=== PATIENT | male | born 1940 | race Caucasian/White ===

== ENCOUNTER 2018-05-29 11:30 | Inpatient (IN) | payer OTHER, MEDICARE ==
--- NOTE | 2018-05-29 11:45 | PDOC ---
History of Present Illness - History of Present Illness Initial Comments: 05/29/18 14:26 Patient is a 78 year old male with a significant past medical history of who presents to the ED with complaints of general body aches s/p fall that occured yesterday. Patient reports sitting in his chair when he slipped, falling on a carpeted floor on to his legs. He reports being unable to get up from the floor himself, prompting him to email his sister to alert EMS to assist him after being on the floor for multiple hours. Patient reports experiencing general body weakness as well as cold like symptoms that he states made him to weak to get up himself. He states he believes he could have the flu. Denies chest pain, Sob. Denies nausea, vomiting. Denies contact with sick individuals, out of state travelling. Denies loss of consciousness, head trauma. Denies any other symptoms. Allergies: None Social history: No smoking. No alcohol. No illicit drugs. Surgical history: None PMD: Not on staff <Jarrett Pool - Last Filed: 05/29/18 14:26> - General History Source: Patient Exam Limitations: No Limitations <Olive Landrum - Last Filed: 05/30/18 13:25> - General Stated Complaint: FALL Time Seen by Provider: 05/29/18 11:45 Past History <Jarrett Pool - Last Filed: 05/29/18 14:26> <Olive Landrum - Last Filed: 05/30/18 13:25> - Past Medical History Allergies/Adverse Reactions: Allergies Allergy/AdvReac Type Severity Reaction Status Date / Time No Known Allergies Allergy Verified 05/29/18 11:56 Home Medications: Ambulatory Orders metFORMIN HCL [Metformin HCl] 500 mg PO TID 05/29/18 Review of Systems - Review of Systems Able to Perform ROS?: Yes Comments:: 05/29/18 14:26 GENERAL/CONSTITUTIONAL: No: fever, chills, weakness, loss of appetite. HEAD, EYES, EARS, NOSE AND THROAT: No: change in vision, ear pain, discharge, sore throat, throat swelling. CARDIOVASCULAR: No: chest pain, lightheadedness, palpitations, syncope RESPIRATORY: No: cough, shortness of breath, wheezing, hemoptysis, stridor. GASTROINTESTINAL: No: nausea, vomiting, abdominal cramping, diarrhea, rectal bleeding, constipation. GENITOURINARY: No: dysuria, hematuria, frequency, urgency, flank pain. MUSCULOSKELETAL: No: back pain, neck pain, joint pain, muscle swelling or pain SKIN: No: lesions, pallor, rash or easy bruising. NEUROLOGIC: No: headache, vertigo, paresthesias, weakness ENDOCRINE: No: unexplained weight gain or loss HEMATOLOGIC/LYMPHATIC: No: anemia, easy bleeding, swelling nodes <Jarrett Pool - Last Filed: 05/29/18 14:26> *Physical Exam - Vital Signs Last Vital Signs Temp Pulse Resp BP Pulse Ox 97.8 F 114 H 18 142/82 96 05/29/18 11:51 05/29/18 11:51 05/29/18 12:03 05/29/18 11:51 05/29/18 12:03 - Physical Exam Comments: 05/29/18 14:26 GENERAL: The patient is in no acute distress. HEAD: Normal with no signs of trauma. EYES: PERRLA, EOMI, sclera anicteric, conjunctiva clear. ENT: Ears normal, nares patent, oropharynx clear without exudates. Moist mucous membranes. NECK: Normal range of motion, supple without lymphadenopathy, JVD, or masses. LUNGS: Breath sounds equal, clear to auscultation bilaterally. No wheezes, and no crackles. HEART: +Tachycardic. Regular rhythm, normal S1 and S2 without murmur, rub or gallop. ABDOMEN: Soft, nontender, normoactive bowel sounds. No guarding, no rebound. EXTREMITIES: Normal range of motion, no edema. No clubbing or cyanosis. No erythema, or tenderness. NEUROLOGICAL: Cranial nerves II through XII grossly intact. Normal speech. No focal neurological deficits. MUSCULOSKELETAL: Back nontender to palpation, no CVA tenderness SKIN: Warm, Dry, normal turgor, no rashes or lesions noted. <Jarrett Pool - Last Filed: 05/29/18 14:26> ED Treatment Course - LABORATORY CBC & Chemistry Diagram: 05/29/18 12:30 05/29/18 12:30 - ADDITIONAL ORDERS Additional order review: Laboratory Results 05/29/18 05/29/18 12:30 12:30 PT with INR 13.20 H INR 1.12 H Sodium 129 L Potassium 3.3 L Chloride 91 L Carbon Dioxide 20 L Anion Gap 19 H BUN 47 H Creatinine 1.6 H Creat Clearance w eGFR 42.12 Random Glucose 339 H* Calcium 8.9 Total Bilirubin 0.8 AST 44 H ALT 28 Alkaline Phosphatase 116 Creatine Kinase 582 H Creatine Kinase Index 0.5 CK-MB (CK-2) 3.1 Troponin I < 0.02 Total Protein 7.5 Albumin 3.1 L 05/29/18 12:30 RBC 5.45 MCV 86.9 MCHC 32.9 RDW 15.7 MPV 9.0 Neutrophils % 86.8 H Lymphocytes % 2.3 L Monocytes % 10.8 H Eosinophils % 0.0 Basophils % 0.1 <Jarrett Pool - Last Filed: 05/29/18 14:26> - LABORATORY CBC & Chemistry Diagram: 05/30/18 05:30 05/30/18 08:15 <Olive Landrum - Last Filed: 05/30/18 13:25> Medical Decision Making - Critical Care Time Total Critical Care Time (minutes): 60 Critical Care Statement: The care of this patient involved high complexity decision making to prevent further life threatening deterioration of the patient 's condition and/or to evaluate & treat vital organ system(s) failure or risk of failure. - Medical Decision Making 05/29/18 12:44 Mr. 78-year-old male with a history of hypertension, diabetes who presents emergency department via EMS status post a fall. Patient states a possibly 20 hours ago he fell out of his chair. He denies head trauma, loss of consciousness. Was unable to get to standing. He was able to crawl to a laptop and sent to [employer]. a message. His sister then called 911. He denies pain in his extremities. He is able to range them. On examination: Patient is awake, alert. Answers questions appropriately Heart is tachycardic but regular No murmurs Lungs are clear Abdomen abdominal tenderness Pelvis is stable Patient is able to range all extremities. There is multiple areas of the beginnings of bruising on the patient's back. EKG: ST rate of 106 bpm, axis nml, no st elevation or depression, t waves upright 05/29/18 13:56 CXR: LLL pneumonia Laboratory Tests 05/29/18 05/29/18 05/29/18 12:30 12:30 12:30 WBC 13.1 H Hgb 15.6 Hct 47.3 Plt Count 311 INR 1.12 H Sodium 129 L Potassium 3.3 L Chloride 91 L Carbon Dioxide 20 L Anion Gap 19 H BUN 47 H Creatinine 1.6 H Random Glucose 339 H* Creatine Kinase 582 H Creatine Kinase Index 0.5 CK-MB (CK-2) 3.1 Troponin I < 0.02 Given NS bolus Laboratory Tests 05/29/18 16:25 Sodium 133 L Potassium 3.4 L Chloride 94 L Carbon Dioxide 20 L Anion Gap 19 H BUN 44 H Creatinine 1.4 H Random Glucose 319 H* Acetone, Qual Positive moderate 2+ Labs consistent with DKA Insulin drip ordered This was delayed in arriving to the ER Pt given a bolus of Insulin 5 units (pt is insulin naive, glucose is 319) 05/29/18 14:[address] Penn Will admit to her service for treatment of CAP and DKA Blood cultures ordered Abx ordered ICU consult called Clinical impression: DKA, initial presentation Pneumonia, initial presentation <Olive Landrum - Last Filed: 05/30/18 13:25> *DC/Admit/Observation/Transfer - Attestations Scribe Attestion: 05/29/18 14:43 Documentation prepared by Jarrett Pool, acting as emergency medical service manager for Olive Landrum MD. <Jarrett Pool - Last Filed: 05/29/18 14:26> - Discharge Dispostion Decision to Admit order: Yes <Olive Landrum - Last Filed: 05/30/18 13:25> Diagnosis at time of Disposition: Pneumonia Qualifiers: Pneumonia type: due to unspecified organism Laterality: left Lung location: lower lobe of lung Qualified Code(s): J18.1 - Lobar pneumonia, unspecified organism - Discharge Dispostion Condition at time of disposition: Stable
[2018-05-29 12:37] LABS: BASO % 0.1 % (0-2.0); HEMATOCRIT 47.3 % (35.4-49); HEMOGLOBIN 15.6 GM/dL (11.7-16.9); LYMPH % 2.3 % (8-40); MCH 28.6 pg (25.7-33.7); MCHC 32.9 g/dl (32.0-35.9); MEAN CELL VOLUME 86.9 fl (80-96); MONO % 10.8 % (3.8-10.2); NEUT % 86.8 % (42.8-82.8); PLATELET COUNT 311 K/MM3 (134-434); RBC 5.45 M/mm3 (4.00-5.60); RDW 15.7 % (11.9-15.9); WHITE BLOOD COUNT 13.1 K/mm3 (4.0-10.0)
[2018-05-29 12:54] LABS: INR 1.12 (0.83-1.09); PROTHROMBIN TIME (PATIENT) 13.2 SEC (9.7-13.0)
[2018-05-29 13:04] LABS: ALBUMIN 3.1 g/dl (3.4-5.0); ALK PHOS 116 U/L (45-117); ANION GAP 19 MMOL/L (8-16); BILIRUBIN,TOTAL 0.8 mg/dL (0.2-1); BLOOD UREA NITROGEN 47 mg/dL (7-18); CALCIUM 8.9 mg/dL (8.5-10.1); CHLORIDE 91 mmol/L (98-107); CO2 20 mmol/L (21-32); CREATININE 1.6 mg/dL (0.55-1.3); POTASSIUM 3.3 mmol/L (3.5-5.1); SGOT/AST 44 U/L (15-37); SGPT/ALT 28 U/L (13-61); SODIUM 129 mmol/L (136-145); TOT PROT 7.5 g/dl (6.4-8.2)
[2018-05-29 13:06] LABS: GLUCOSE,RANDOM 339 mg/dL (74-106)
[2018-05-29] MEDS ORDERED: CEFTRIAXONE 1 GM in DEXTROSE 5%-WATER - 50 ML IVPB ONE (13:55)
[2018-05-29] MEDS ORDERED: AZITHROMYCIN IVPB 500 MG in DEXTROSE 5%-WATER - 250 ML IVPB ONE (13:55)
[2018-05-29] MEDS ORDERED: SODIUM CHLORIDE 1,000 ML IV STA ×3 (14:15→18:52)
--- NOTE | 2018-05-29 14:51 | EKG ---
Test Reason : Blood Pressure : / mmHG Vent. Rate : 106 BPM Atrial Rate : 106 BPM P-R Int : 132 ms QRS Dur : 090 ms QT Int : 364 ms P-R-T Axes : 067 010 058 degrees QTc Int : 483 ms SINUS TACHYCARDIA POSSIBLE LEFT ATRIAL ENLARGEMENT BORDERLINE ECG NO PREVIOUS ECGS AVAILABLE Confirmed by PRATIK BARRIOS, KATIE ([id number]) on 05/29/2018 2:51:06 PM Referred By: Confirmed By:KATIE CHRISTIE MD
[2018-05-29] MEDS ORDERED: AZITHROMYCIN IVPB 500 MG/250 ML BAG IVPB ONE (15:31)
[2018-05-29] MEDS ORDERED: CEFTRIAXONE 1 GM/50 ML BAG ONE (15:32)
[2018-05-29 17:04] LABS: ANION GAP 19 MMOL/L (8-16); BLOOD UREA NITROGEN 44 mg/dL (7-18); CALCIUM 9.4 mg/dL (8.5-10.1); CHLORIDE 94 mmol/L (98-107); CO2 20 mmol/L (21-32); CREATININE 1.4 mg/dL (0.55-1.3); POTASSIUM 3.4 mmol/L (3.5-5.1); SODIUM 133 mmol/L (136-145)
[2018-05-29 17:05] LABS: GLUCOSE,RANDOM 319 mg/dL (74-106)
[2018-05-29 17:19] LABS: ACETONE SERUM POSITIVE MODERATE 2+ (NEGATIVE)
[2018-05-29] MEDS ORDERED: INSULIN REGULAR 100 UNITS in SODIUM CHLORIDE 99 ML IVPB SCH (17:30)
[2018-05-29] MEDS ORDERED: SODIUM CHLORIDE 0.9%/KCL 20 MEQ/1,000 ML INFUS.BAG IV SCH (17:30)
[2018-05-29 17:37] LABS: URINE APPEARANCE SLCLOUDY; URINE BILIRUBIN NEGATIVE (<2.0 mg/dL); URINE COLOR YELLOW; URINE GLUCOSE (UA) 3+ (NEGATIVE); URINE KETONE 2+ (NEGATIVE); URINE LEUK ESTERASE NEGATIVE (NEGATIVE); URINE NITRITE NEGATIVE (NEGATIVE); URINE PROTEIN 2+ (NEGATIVE); URINE UROBILINOGEN NEGATIVE mg/dL (0.2-1.0)
--- NOTE | 2018-05-29 18:03 | HP ---
Admitting History and Physical - Primary Care Physician PCP: Donnie Penn - Admission History of Present Illness: 78 year old male with no significant past medical history of who presents to the ED with complaints of general body aches s/p fall yesterday. Patient reports sitting in his chair when he slipped, falling on a carpeted floor on to his legs. He reports being unable to get up from the floor himself, prompting him to email his sister to alert EMS to assist him after being on the floor for multiple hours. He states he believes he could have the flu. - Smoking History Smoking history: Never smoked Home Medications - Allergies Allergies/Adverse Reactions: Allergies Allergy/AdvReac Type Severity Reaction Status Date / Time No Known Allergies Allergy Verified 05/29/18 11:56 - Home Medications Home Medications: Ambulatory Orders metFORMIN HCL [Metformin HCl] 500 mg PO TID 05/29/18 Physical Examination Vital Signs: Vital Signs Temperature 98.1 F 05/29/18 16:39 Pulse Rate 100 H 05/29/18 16:39 Respiratory Rate 20 05/29/18 16:39 Blood Pressure 137/76 05/29/18 16:39 O2 Sat by Pulse Oximetry (%) 97 05/29/18 16:39 Constitutional: Yes: No Distress HENT: Yes: Atraumatic Neck: Yes: Supple Cardiovascular: Yes: Regular Rate and Rhythm Respiratory: Yes: CTA Bilaterally Gastrointestinal: Yes: Normal Bowel Sounds Extremities: Yes: WNL Edema: No Peripheral Pulses WNL: Yes Neurological: Yes: Alert, Oriented Labs: CBC, BMP 05/29/18 12:30 05/29/18 16:25 Imaging - Results Chest X-ray: Report Reviewed Cat Scan: Report Reviewed Ultrasound: Report Reviewed Problem List - Problems (1) Pneumonia Assessment/Plan: iv abx cxs sent id consult head ct noted cxr noted Code(s): J18.9 - PNEUMONIA, UNSPECIFIED ORGANISM Qualifiers: Pneumonia type: due to unspecified organism Laterality: left Lung location: lower lobe of lung Qualified Code(s): J18.1 - Lobar pneumonia, unspecified organism Assessment/Plan Laboratory Tests 05/29/18 05/29/18 05/29/18 12:30 12:30 12:30 WBC 13.1 H RBC 5.45 Hgb 15.6 Hct 47.3 MCV 86.9 MCH 28.6 MCHC 32.9 RDW 15.7 Plt Count 311 MPV 9.0 Absolute Neuts (auto) 11.3 H Neutrophils % 86.8 H Lymphocytes % 2.3 L Monocytes % 10.8 H Eosinophils % 0.0 Basophils % 0.1 Nucleated RBC % 0 PT with INR 13.20 H INR 1.12 H Anticoagulation Therapy Puncture Site ABG pH ABG pCO2 at Pt Temp ABG pO2 at Pt Temp ABG HCO3 ABG O2 Sat (Measured) ABG O2 Content ABG Base Excess Ivan Test O2 Delivery Device Oxygen Flow Rate Vent Mode Vent Rate Mechanical Rate Pressure Support Vent Sodium 129 L Potassium 3.3 L Chloride 91 L Carbon Dioxide 20 L Anion Gap 19 H BUN 47 H Creatinine 1.6 H Creat Clearance w eGFR 42.12 POC Glucometer Random Glucose 339 H* Calcium 8.9 Total Bilirubin 0.8 AST 44 H ALT 28 Alkaline Phosphatase 116 Creatine Kinase 582 H Creatine Kinase Index 0.5 CK-MB (CK-2) 3.1 Troponin I < 0.02 Total Protein 7.5 Albumin 3.1 L Urine Color Urine Appearance Urine pH Ur Specific [place] Urine Protein Urine Glucose (UA) Urine Ketones Urine Blood Urine Nitrite Urine Bilirubin Urine Urobilinogen Ur Leukocyte Esterase Urine WBC (Auto) Urine RBC (Auto) Ur Epithelial Cells Hyaline Casts Urine Mucus Acetone, Qual Blood Type Antibody Screen 05/29/18 05/29/18 05/29/18 15:15 16:25 17:01 WBC RBC Hgb Hct MCV MCH MCHC RDW Plt Count MPV Absolute Neuts (auto) Neutrophils % Lymphocytes % Monocytes % Eosinophils % Basophils % Nucleated RBC % PT with INR INR Anticoagulation Therapy Puncture Site ABG pH ABG pCO2 at Pt Temp ABG pO2 at Pt Temp ABG HCO3 ABG O2 Sat (Measured) ABG O2 Content ABG Base Excess Ivan Test O2 Delivery Device Oxygen Flow Rate Vent Mode Vent Rate Mechanical Rate Pressure Support Vent Sodium 133 L Potassium 3.4 L Chloride 94 L Carbon Dioxide 20 L Anion Gap 19 H BUN 44 H Creatinine 1.4 H Creat Clearance w eGFR 49.14 POC Glucometer Random Glucose 319 H* Calcium 9.4 Total Bilirubin AST ALT Alkaline Phosphatase Creatine Kinase Creatine Kinase Index CK-MB (CK-2) Troponin I Total Protein Albumin Urine Color Yellow Urine Appearance Slcloudy Urine pH 5.0 Ur Specific [place] 1.023 Urine Protein 2+ H Urine Glucose (UA) 3+ H Urine Ketones 2+ H Urine Blood 2+ H Urine Nitrite Negative Urine Bilirubin Negative Urine Urobilinogen Negative Ur Leukocyte Esterase Negative Urine WBC (Auto) 2 Urine RBC (Auto) <1 Ur Epithelial Cells Rare Hyaline Casts 1 Urine Mucus Rare Acetone, Qual Positive moderate 2+ Blood Type O POSITIVE Antibody Screen Negative 05/29/18 05/29/18 05/29/18 19:05 20:16 20:20 WBC RBC Hgb Hct MCV MCH MCHC RDW Plt Count MPV Absolute Neuts (auto) Neutrophils % Lymphocytes % Monocytes % Eosinophils % Basophils % Nucleated RBC % PT with INR INR Anticoagulation Therapy No Result Required. Puncture Site No Result Required. ABG pH 7.42 ABG pCO2 at Pt Temp 25.7 L ABG pO2 at Pt Temp 66.1 L ABG HCO3 16.3 L ABG O2 Sat (Measured) 90.5 ABG O2 Content 16.9 ABG Base Excess -6.3 L Ivan Test Positive O2 Delivery Device No Result Required. Oxygen Flow Rate No Result Required. Vent Mode No Result Required. Vent Rate No Result Required. Mechanical Rate No Result Required. Pressure Support Vent No Result Required. Sodium 137 Potassium 3.3 L Chloride 101 Carbon Dioxide 21 Anion Gap 15 BUN 41 H Creatinine 1.3 Creat Clearance w eGFR 53.53 POC Glucometer [id number] Random Glucose 222 H Calcium 8.2 L Total Bilirubin AST ALT Alkaline Phosphatase Creatine Kinase Creatine Kinase Index CK-MB (CK-2) Troponin I Total Protein Albumin Urine Color Urine Appearance Urine pH Ur Specific [place] Urine Protein Urine Glucose (UA) Urine Ketones Urine Blood Urine Nitrite Urine Bilirubin Urine Urobilinogen Ur Leukocyte Esterase Urine WBC (Auto) Urine RBC (Auto) Ur Epithelial Cells Hyaline Casts Urine Mucus Acetone, Qual Blood Type Antibody Screen Active Medications Generic Name Dose Route Start Last Admin Trade Name Freq PRN Reason Stop Dose Admin Chlorhexidine Gluconate 1 applic 05/29/18 22:00 Hibiclens For Decolonization - TP HS MECHELLE Heparin Sodium (Porcine) 5,000 unit 05/29/18 22:00 Heparin - SQ TID [facility] Insulin Human Regular 100 100 mls @ 4 mls/hr 05/29/18 17:30 units/ Sodium Chloride IVPB TITR MECHELLE Protocol 4 UNITS/HR Potassium Chloride/Sodium Chloride 20 meq in 1,000 mls @ 200 mls/hr 05/29/18 17:30 05/29/18 18:30 Ns+20 Meq Kcl - IV 200 mls/hr ASDIR MECHELLE Administration Mupirocin 1 applic 05/29/18 22:00 Bactroban Ointment (For Decolonization) - NS 06/03/18 21:59 BID MECHELLE
[2018-05-29] MEDS ORDERED: INSULIN REGULAR HUMAN 100 UNITS/ML *VIAL ONE ×2 (18:04→18:28)
[2018-05-29] MEDS ORDERED: INSULIN REGULAR HUMAN 100 UNITS/ML *VIAL IVPUSH ONE (18:25)
[2018-05-29 18:39] LABS: EPI CELLS RARE /HPF (FEW); URINE HYALINE CAST 1 /lpf; URINE MUCUS RARE
--- NOTE | 2018-05-29 18:46 | CONSULT ---
Consultation: REQUESTING PROVIDER: Dr. Penn CONSULT REQUEST: We have been asked to medically evaluate this patient for ICU. HISTORY OF PRESENT ILLNESS: A 78 y.o. M w/ PMHx. of DM2 for 30 years and CAD( 2 stents placed 7 years ago, does not take medication for stent). Pt. states that a couple days ago he fell, (denies hitting his head and denies losing consciousness) and was unable to get up for over 20 hours. Pt was unable to reach his phone but was able to reach his laptop where he was able to email his sister who promptly called EMS. Pt. states this is the first time something like this has happened. Pt. endorses that Metformin worked well up until 5 years ago. His last HgbA1c was 7.5%. Pt. monitors BGMs every morning and they are usually 140-160. Pt. denies ever having low BGM and ever being hospitalized for DKA. Pt. started Glyxambi samples several months ago by his PCP Dr. Marcellus Starr?( last seen 1.5 months ago). Pt. takes Metformin 500mg TID and Glipizide in addition to Glyxambi. Pt. uses [facility] on [address]. Pt. lives alone at home, recently 2 years ago. Pt. denies any other surgical history and allergies. Family Hx: Father of Alzheimer/dementia at 87, Mother of MA, Sister recently diagnosed with breast cancer Social Hx: Pt. denies EtOh, smoked cigs and cigar from teenager to 2000, denies drug use. 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 REVIEW OF SYSTEMS: CONSTITUTIONAL: Present: generalized weakness, weight changeAbsent: fever, chills, diaphoresis, malaise, loss of appetite, HEENT: Absent: rhinorrhea, nasal congestion, throat pain, throat swelling, difficulty swallowing, mouth swelling, ear pain, eye pain, visual changes CARDIOVASCULAR: Absent: chest pain, syncope, palpitations, irregular heart rate , lightheadedness, peripheral edema RESPIRATORY: Absent: cough, shortness of breath, dyspnea with exertion, orthopnea, wheezing, stridor, hemoptysis GASTROINTESTINAL:Absent: abdominal pain, abdominal distension, nausea, vomiting , diarrhea, constipation, melena, hematochezia GENITOURINARY: Absent: dysuria, frequency, urgency, hesitancy, hematuria, flank pain, genital pain MUSCULOSKELETAL: Absent: myalgia, arthralgia, joint swelling, back pain, neck pain SKIN: Absent: rash, itching, pallor HEMATOLOGIC/IMMUNOLOGIC: Absent: easy bleeding, easy bruising, lymphadenopathy, frequent infections ENDOCRINE: Present: unexplained weight lossAbsent: unexplained weight gain, , heat intolerance, cold intolerance NEUROLOGIC: Present: unsteady gait Absent: headache, focal weakness or paresthesias, dizziness, seizure, mental status changes, bladder or bowel incontinence PSYCHIATRIC: Absent: anxiety, depression, suicidal or homicidal ideation, hallucinations. PHYSICAL EXAMINATION Vital Signs - 24 hr 05/29/18 05/29/18 05/29/18 11:51 12:03 16:39 Temperature 97.8 F 98.1 F Pulse Rate 114 H Pulse Rate [ 100 H Right Radial] Respiratory 18 18 20 Rate Blood Pressure 142/82 Blood Pressure 137/76 [Left Arm] O2 Sat by Pulse 96 96 97 Oximetry (%) GENERAL: Awake, alert, and fully oriented, in no acute distress. HEAD: Normal with no signs of trauma. EYES: Pupils equal, round and reactive to light, sclera anicteric, conjunctiva clear. No lid lag. EARS, NOSE, THROAT: Ears normal, nares patent, oropharynx clear without exudates. Moist mucous membranes. LUNGS: LLL crackles and decreased breath sounds. No accessory muscle use. HEART: Irregular rate and rhythm, normal S1 and S2 ABDOMEN: Soft, nontender, not distended, normoactive bowel sounds, no guarding, no rebound, no masses. MUSCULOSKELETAL: Normal range of motion at all joints. No bony deformities or tenderness. No CVA tenderness. UPPER EXTREMITIES: 2+ radial pulses, warm, well-perfused. No cyanosis. No clubbing. Cap refill <2 seconds. No peripheral edema. LOWER EXTREMITIES: 2+ dorsal pedal pulses, warm, well-perfused. No calf tenderness. No peripheral edema. LLE mass that is fluctuant and nontender. NEUROLOGICAL: Normal speech. Normal gait. PSYCHIATRIC: Cooperative. Good eye contact. Appropriate mood and affect. SKIN: Warm, dry, normal turgor, no rashes or lesions noted. Laboratory Results - last 24 hr 05/29/18 05/29/18 05/29/18 12:30 12:30 12:30 WBC 13.1 H RBC 5.45 Hgb 15.6 Hct 47.3 MCV 86.9 MCH 28.6 MCHC 32.9 RDW 15.7 Plt Count 311 MPV 9.0 Absolute Neuts (auto) 11.3 H Neutrophils % 86.8 H Lymphocytes % 2.3 L Monocytes % 10.8 H Eosinophils % 0.0 Basophils % 0.1 Nucleated RBC % 0 PT with INR 13.20 H INR 1.12 H Sodium 129 L Potassium 3.3 L Chloride 91 L Carbon Dioxide 20 L Anion Gap 19 H BUN 47 H Creatinine 1.6 H Creat Clearance w eGFR 42.12 Random Glucose 339 H* Calcium 8.9 Total Bilirubin 0.8 AST 44 H ALT 28 Alkaline Phosphatase 116 Creatine Kinase 582 H Creatine Kinase Index 0.5 CK-MB (CK-2) 3.1 Troponin I < 0.02 Total Protein 7.5 Albumin 3.1 L Urine Color Urine Appearance Urine pH Ur Specific [place] Urine Protein Urine Glucose (UA) Urine Ketones Urine Blood Urine Nitrite Urine Bilirubin Urine Urobilinogen Ur Leukocyte Esterase Acetone, Qual Blood Type Antibody Screen 05/29/18 05/29/18 05/29/18 15:15 16:25 17:01 WBC RBC Hgb Hct MCV MCH MCHC RDW Plt Count MPV Absolute Neuts (auto) Neutrophils % Lymphocytes % Monocytes % Eosinophils % Basophils % Nucleated RBC % PT with INR INR Sodium 133 L Potassium 3.4 L Chloride 94 L Carbon Dioxide 20 L Anion Gap 19 H BUN 44 H Creatinine 1.4 H Creat Clearance w eGFR 49.14 Random Glucose 319 H* Calcium 9.4 Total Bilirubin AST ALT Alkaline Phosphatase Creatine Kinase Creatine Kinase Index CK-MB (CK-2) Troponin I Total Protein Albumin Urine Color Yellow Urine Appearance Slcloudy Urine pH 5.0 Ur Specific [place] 1.023 Urine Protein 2+ H Urine Glucose (UA) 3+ H Urine Ketones 2+ H Urine Blood 2+ H Urine Nitrite Negative Urine Bilirubin Negative Urine Urobilinogen Negative Ur Leukocyte Esterase Negative Acetone, Qual Positive moderate 2+ Blood Type O POSITIVE Antibody Screen Negative Active Medications Current Medications Sodium Chloride (Normal Saline -) 1,000 mls @ 125 mls/hr IV ASDIR STA Stop: 05/29/18 22:14 Last Admin: 05/29/18 15:23 Dose: 125 mls/hr Insulin Human Regular 100 (units/ Sodium Chloride) 100 mls @ 4 mls/hr IVPB TITR MECHELLE; Protocol Potassium Chloride/Sodium Chloride (Ns+20 Meq Kcl -) 20 meq in 1,000 mls @ 200 mls/hr IV ASDIR MECHELLE CXR: LLL Pnemonia, No pleural effusion. ASSESSMENT/PLAN: A 78 y.o. M w/ PMHx. of DM2 for 30 years and CAD( 2 stents placed 7 years ago, does not take medication for stent), presents to the ED s/p syncopal episode with LLL pneumonia and DKA. #Endocrine -DKA 2/2 likely pneumonia started Azithromycin and Ceftriaxone started Insulin drip BGM Q1H BMP Q2H, then Q4h NS @ 200ml/hr w/ 20meq K+ UA positive for ketones, glucose and acetone Glucose 319 Anion Gap: 19 When FS is less than 200, please switch to D5 @ 200cc/hr AND decrease insulin drip. After his anion gap closes, continue insulin drip for 2 h and start long acting insulin. #Cardiovascular -CAD s/p 2 stents 7 years ago -R/O Cardiogenic etiology for syncopal episode f/u Echo f/u Carotid Duplex #F/E/N -NS w 20meq @200ml/hr -monitor and replete electrolytes as needed, Hyponatremia and Hypokalemia are resolving -NPO Dispo: We will continue to follow the patient. Thank you for this consultative opportunity. Visit type - Emergency Visit Emergency Visit: Yes ED Registration Date: 05/29/18 Care time: The patient presented to the Emergency Department on the above date and was hospitalized for further evaluation of their emergent condition. - New Patient This patient is new to me today: No - Critical Care Critical Care patient: Yes Total Critical Care Time (in minutes): 42 Critical Care Statement: The care of this patient involved high complexity decision making to prevent further life threatening deterioration of the patient 's condition and/or to evaluate & treat vital organ system(s) failure or risk of failure.
[2018-05-29 19:23] LABS: ARTERIAL BLD GAS O2 SATURATION 90.5 % (90-98.9); ARTERIAL BLOOD GAS PCO2 25.7 mmHg (35-45); ARTERIAL BLOOD GAS PO2 66.1 mmHg (70-100); ARTERIAL BLOOD GAS pH 7.42 (7.35-7.45)
[2018-05-29 19:24] LABS: ARTERIAL BLOOD GAS BASE EXCESS -6.3 meq/l (-2-2)
[2018-05-29 19:25] LABS: ALLENS TEST POSITIVE
[2018-05-29 20:48] LABS: ANION GAP 15 MMOL/L (8-16); BLOOD UREA NITROGEN 41 mg/dL (7-18); CALCIUM 8.2 mg/dL (8.5-10.1); CHLORIDE 101 mmol/L (98-107); CO2 21 mmol/L (21-32); CREATININE 1.3 mg/dL (0.55-1.3); GLUCOSE,RANDOM 222 mg/dL (74-106); POTASSIUM 3.3 mmol/L (3.5-5.1); SODIUM 137 mmol/L (136-145)
[2018-05-29] MEDS ORDERED: ACETAMINOPHEN 325 MG TABLET (FP) PO PRN (21:08)
[2018-05-29] MEDS: HEPARIN NA (PORCINE) 5,000 UNITS/ML 1ML VIAL SQ SCH (23:42)
[2018-05-29] MEDS ORDERED: HEPARIN NA (PORCINE) 5,000 UNITS/ML 1ML VIAL ONE (23:43)
[2018-05-30 00:24] LABS: ANION GAP 17 MMOL/L (8-16); BLOOD UREA NITROGEN 41 mg/dL (7-18); CALCIUM 7.7 mg/dL (8.5-10.1); CHLORIDE 101 mmol/L (98-107); CO2 17 mmol/L (21-32); CREATININE 1.3 mg/dL (0.55-1.3); GLUCOSE,RANDOM 271 mg/dL (74-106); POTASSIUM 3.9 mmol/L (3.5-5.1); SODIUM 135 mmol/L (136-145)
[2018-05-30] MEDS ORDERED: INSULIN REGULAR 100 UNITS in SODIUM CHLORIDE 99 ML IVPB SCH (03:19)
[2018-05-30 06:07] LABS: BASO % 0.3 % (0-2.0); EOS % 0.3 % (0-4.5); HEMATOCRIT 43.2 % (35.4-49); HEMOGLOBIN 13.8 GM/dL (11.7-16.9); LYMPH % 4.4 % (8-40); MCH 27.8 pg (25.7-33.7); MCHC 31.8 g/dl (32.0-35.9); MEAN CELL VOLUME 87.2 fl (80-96); MEAN PLT VOLUME 9.8 fl (7.5-11.1); MONO % 9.4 % (3.8-10.2); NEUT % 85.6 % (42.8-82.8); PLATELET COUNT 271 K/MM3 (134-434); RBC 4.96 M/mm3 (4.00-5.60); RDW 15.4 % (11.9-15.9); WHITE BLOOD COUNT 13.2 K/mm3 (4.0-10.0)
[2018-05-30] MEDS: HEPARIN NA (PORCINE) 5,000 UNITS/ML 1ML VIAL SQ SCH ×3 (06:15→22:36)
[2018-05-30 06:30] LABS: MAGNESIUM 2.6 mg/dL (1.8-2.4)
[2018-05-30] MEDS ORDERED: DEXTROSE 5%-0.45% SALINE 1,000 ML IV SCH (07:00)
[2018-05-30] MEDS ORDERED: metFORMIN HCL 500 MG TABLET (FP) PO SCH (07:00)
[2018-05-30] MEDS ORDERED: POTASSIUM PHOSPHATE 30 MM in SODIUM CHLORIDE 250 ML IVPB ONE (07:30)
[2018-05-30 07:47] LABS: ALBUMIN 2.3 g/dl (3.4-5.0); ALK PHOS 90 U/L (45-117); ANION GAP 12 MMOL/L (8-16); BILIRUBIN,TOTAL 0.8 mg/dL (0.2-1); BLOOD UREA NITROGEN 37 mg/dL (7-18); CALCIUM 8.2 mg/dL (8.5-10.1); CHLORIDE 108 mmol/L (98-107); CO2 20 mmol/L (21-32); CREATININE 1.2 mg/dL (0.55-1.3); GLUCOSE,RANDOM 162 mg/dL (74-106); POTASSIUM 3.5 mmol/L (3.5-5.1); SGOT/AST 36 U/L (15-37); SGPT/ALT 24 U/L (13-61); SODIUM 140 mmol/L (136-145); TOT PROT 5.7 g/dl (6.4-8.2)
[2018-05-30 08:58] LABS: ANION GAP 11 MMOL/L (8-16); BLOOD UREA NITROGEN 36 mg/dL (7-18); CALCIUM 7.9 mg/dL (8.5-10.1); CHLORIDE 109 mmol/L (98-107); CO2 19 mmol/L (21-32); CREATININE 1.1 mg/dL (0.55-1.3); GLUCOSE,RANDOM 89 mg/dL (74-106); SODIUM 139 mmol/L (136-145)
[2018-05-30] MEDS ORDERED: cefTRIAXone SODIUM 1 GM VIAL ONE (09:57)
[2018-05-30] MEDS ORDERED: DEXTROSE 5%-WATER - 50 ML IVPB ONE ×3 (09:57→22:51)
[2018-05-30] MEDS ORDERED: AZITHROMYCIN IVPB 250 MG in DEXTROSE 5%-WATER - 250 ML IVPB SCH (10:00)
[2018-05-30] MEDS ORDERED: PNEUMOC 13-VAL CONJ-DIP CRM/PF 0.5 ML DISP.SYRIN IM ONE (10:00)
[2018-05-30] MEDS ORDERED: MUPIROCIN 2% TOPICAL OINTMENT FOR DECOLONIZATION NS SCH ×2 (10:00→22:00)
[2018-05-30] MEDS ORDERED: CEFTRIAXONE 1 GM in DEXTROSE 5%-WATER - 50 ML IVPB SCH (10:00)
[2018-05-30] MEDS: KCL 10 MEQ IVPB 10 MEQ/100 ML INFUS.BAG IVPB SCH ×3 (10:34→12:55)
[2018-05-30] MEDS ORDERED: PT OWN MED DRAWER 7, Y5N ONE (11:23)
--- NOTE | 2018-05-30 12:50 | PN ---
Teaching Attending Note Name of Resident: Gm Bennett ATTENDING PHYSICIAN STATEMENT I saw and evaluated the patient. I reviewed the resident's note and discussed the case with the resident. I agree with the resident's findings and plan as documented. SUBJECTIVE: Patient seen and examined in the ICU. Awake and alert. Denies CP or SOB or significant cough. Remains on IV Insulin drip (ordered to stop). AG closed. CXR: Increase in LLL consolidation / RLL atalectasis Intake & Output 05/27/18 05/28/18 05/29/18 05/30/18 23:59 23:59 23:59 23:59 Intake Total 410 Balance 410 Weight 130 lb 138 lb 3 oz Last Vital Signs Temp Pulse Resp BP Pulse Ox 98.5 F 74 15 113/45 L 97 05/30/18 06:00 05/30/18 06:00 05/30/18 06:00 05/30/18 06:00 05/30/18 03:15 Active Medications Acetaminophen (Tylenol -) 650 mg PO Q6H PRN PRN Reason: FEVER Chlorhexidine Gluconate (Hibiclens For Decolonization -) 1 applic TP HS MECHELLE Heparin Sodium (Porcine) (Heparin -) 5,000 unit SQ TID MECHELLE Last Admin: 05/30/18 06:15 Dose: 5,000 unit Potassium Chloride/Sodium Chloride (Ns+20 Meq Kcl -) 20 meq in 1,000 mls @ 200 mls/hr IV ASDIR MECHELLE Last Admin: 05/29/18 18:30 Dose: 200 mls/hr Dextrose/Sodium Chloride (D5-1/2ns -) 1,000 mls @ 150 mls/hr IV ASDIR MECHELLE Last Admin: 05/30/18 07:14 Dose: 150 mls/hr Azithromycin 250 mg/ Dextrose 250 mls @ 250 mls/hr IVPB DAILY MECHELLE Ceftriaxone Sodium 1 gm/ (Dextrose) 50 mls @ 100 mls/hr IVPB DAILY [facility]; Protocol Last Admin: 05/30/18 10:16 Dose: 100 mls/hr Mupirocin (Bactroban Ointment (For Decolonization) -) 1 applic NS BID MECHELLE Stop: 06/04/18 09:59 Last Admin: 05/30/18 11:42 Dose: 1 applic GENERAL: Awake, alert, and oriented, in no acute distress. HEAD: Normal with no signs of trauma. EYES: Pupils equal, round and reactive to light, sclera anicteric, conjunctiva clear. No lid lag. EARS, NOSE, THROAT: Ears normal, nares patent, oropharynx clear without exudates. Moist mucous membranes. LUNGS: LLL crackles and decreased breath sounds. No accessory muscle use. HEART: Irregular rate and rhythm, normal S1 and S2 ABDOMEN: Soft, nontender, not distended, normoactive bowel sounds, no guarding, no rebound, no masses. MUSCULOSKELETAL: Normal range of motion at all joints. No bony deformities or tenderness. No CVA tenderness. UPPER EXTREMITIES: 2+ radial pulses, warm, well-perfused. No cyanosis. No clubbing. Cap refill <2 seconds. No peripheral edema. LOWER EXTREMITIES: 2+ dorsal pedal pulses, warm, well-perfused. No calf tenderness. NEUROLOGICAL: Normal speech. Normal gait. PSYCHIATRIC: Cooperative. Appropriate mood and affect. SKIN: Warm, dry, normal turgor, no rashes or lesions noted. Laboratory Results - last 24 hr 05/29/18 05/29/18 05/29/18 12:30 12:30 12:30 WBC 13.1 H RBC 5.45 Hgb 15.6 Hct 47.3 MCV 86.9 MCH 28.6 MCHC 32.9 RDW 15.7 Plt Count 311 MPV 9.0 Absolute Neuts (auto) 11.3 H Neutrophils % 86.8 H Lymphocytes % 2.3 L Monocytes % 10.8 H Eosinophils % 0.0 Basophils % 0.1 Nucleated RBC % 0 PT with INR 13.20 H INR 1.12 H Anticoagulation Therapy Puncture Site ABG pH ABG pCO2 at Pt Temp ABG pO2 at Pt Temp ABG HCO3 ABG O2 Sat (Measured) ABG O2 Content ABG Base Excess Ivan Test O2 Delivery Device Oxygen Flow Rate Vent Mode Vent Rate Mechanical Rate Pressure Support Vent Sodium 129 L Potassium 3.3 L Chloride 91 L Carbon Dioxide 20 L Anion Gap 19 H BUN 47 H Creatinine 1.6 H Creat Clearance w eGFR 42.12 POC Glucometer Random Glucose 339 H* Hemoglobin A1c % Calcium 8.9 Phosphorus Magnesium Total Bilirubin 0.8 AST 44 H ALT 28 Alkaline Phosphatase 116 Creatine Kinase 582 H Creatine Kinase Index 0.5 CK-MB (CK-2) 3.1 Troponin I < 0.02 Total Protein 7.5 Albumin 3.1 L Urine Color Urine Appearance Urine pH Ur Specific [place] Urine Protein Urine Glucose (UA) Urine Ketones Urine Blood Urine Nitrite Urine Bilirubin Urine Urobilinogen Ur Leukocyte Esterase Urine WBC (Auto) Urine RBC (Auto) Ur Epithelial Cells Hyaline Casts Urine Mucus Acetone, Qual Blood Type Antibody Screen 05/29/18 05/29/18 05/29/18 15:15 16:25 17:01 WBC RBC Hgb Hct MCV MCH MCHC RDW Plt Count MPV Absolute Neuts (auto) Neutrophils % Lymphocytes % Monocytes % Eosinophils % Basophils % Nucleated RBC % PT with INR INR Anticoagulation Therapy Puncture Site ABG pH ABG pCO2 at Pt Temp ABG pO2 at Pt Temp ABG HCO3 ABG O2 Sat (Measured) ABG O2 Content ABG Base Excess Ivan Test O2 Delivery Device Oxygen Flow Rate Vent Mode Vent Rate Mechanical Rate Pressure Support Vent Sodium 133 L Potassium 3.4 L Chloride 94 L Carbon Dioxide 20 L Anion Gap 19 H BUN 44 H Creatinine 1.4 H Creat Clearance w eGFR 49.14 POC Glucometer Random Glucose 319 H* Hemoglobin A1c % Calcium 9.4 Phosphorus Magnesium Total Bilirubin AST ALT Alkaline Phosphatase Creatine Kinase Creatine Kinase Index CK-MB (CK-2) Troponin I Total Protein Albumin Urine Color Yellow Urine Appearance Slcloudy Urine pH 5.0 Ur Specific [place] 1.023 Urine Protein 2+ H Urine Glucose (UA) 3+ H Urine Ketones 2+ H Urine Blood 2+ H Urine Nitrite Negative Urine Bilirubin Negative Urine Urobilinogen Negative Ur Leukocyte Esterase Negative Urine WBC (Auto) 2 Urine RBC (Auto) <1 Ur Epithelial Cells Rare Hyaline Casts 1 Urine Mucus Rare Acetone, Qual Positive moderate 2+ Blood Type O POSITIVE Antibody Screen Negative 05/29/18 05/29/18 05/29/18 19:05 20:16 20:20 WBC RBC Hgb Hct MCV MCH MCHC RDW Plt Count MPV Absolute Neuts (auto) Neutrophils % Lymphocytes % Monocytes % Eosinophils % Basophils % Nucleated RBC % PT with INR INR Anticoagulation Therapy No Result Required. Puncture Site No Result Required. ABG pH 7.42 ABG pCO2 at Pt Temp 25.7 L ABG pO2 at Pt Temp 66.1 L ABG HCO3 16.3 L ABG O2 Sat (Measured) 90.5 ABG O2 Content 16.9 ABG Base Excess -6.3 L Ivan Test Positive O2 Delivery Device No Result Required. Oxygen Flow Rate No Result Required. Vent Mode No Result Required. Vent Rate No Result Required. Mechanical Rate No Result Required. Pressure Support Vent No Result Required. Sodium 137 Potassium 3.3 L Chloride 101 Carbon Dioxide 21 Anion Gap 15 BUN 41 H Creatinine 1.3 Creat Clearance w eGFR 53.53 POC Glucometer 249.99186 Random Glucose 222 H Hemoglobin A1c % Calcium 8.2 L Phosphorus Magnesium Total Bilirubin AST ALT Alkaline Phosphatase Creatine Kinase Creatine Kinase Index CK-MB (CK-2) Troponin I Total Protein Albumin Urine Color Urine Appearance Urine pH Ur Specific [place] Urine Protein Urine Glucose (UA) Urine Ketones Urine Blood Urine Nitrite Urine Bilirubin Urine Urobilinogen Ur Leukocyte Esterase Urine WBC (Auto) Urine RBC (Auto) Ur Epithelial Cells Hyaline Casts Urine Mucus Acetone, Qual Blood Type Antibody Screen 05/29/18 05/30/18 05/30/18 23:23 05:30 05:30 WBC 13.2 H RBC 4.96 Hgb 13.8 Hct 43.2 MCV 87.2 MCH 27.8 MCHC 31.8 L RDW 15.4 Plt Count 271 MPV 9.8 Absolute Neuts (auto) 11.3 H Neutrophils % 85.6 H Lymphocytes % 4.4 L D Monocytes % 9.4 Eosinophils % 0.3 D Basophils % 0.3 Nucleated RBC % 0 PT with INR INR Anticoagulation Therapy Puncture Site ABG pH ABG pCO2 at Pt Temp ABG pO2 at Pt Temp ABG HCO3 ABG O2 Sat (Measured) ABG O2 Content ABG Base Excess Ivan Test O2 Delivery Device Oxygen Flow Rate Vent Mode Vent Rate Mechanical Rate Pressure Support Vent Sodium 135 L 140 Potassium 3.9 3.5 Chloride 101 108 H Carbon Dioxide 17 L 20 L Anion Gap 17 H 12 BUN 41 H 37 H Creatinine 1.3 1.2 Creat Clearance w eGFR 53.53 58.71 POC Glucometer Random Glucose 271 H 162 H Hemoglobin A1c % Calcium 7.7 L 8.2 L Phosphorus 2.0 L Magnesium 2.6 H Total Bilirubin 0.8 AST 36 ALT 24 Alkaline Phosphatase 90 Creatine Kinase Creatine Kinase Index CK-MB (CK-2) Troponin I Total Protein 5.7 L Albumin 2.3 L Urine Color Urine Appearance Urine pH Ur Specific [place] Urine Protein Urine Glucose (UA) Urine Ketones Urine Blood Urine Nitrite Urine Bilirubin Urine Urobilinogen Ur Leukocyte Esterase Urine WBC (Auto) Urine RBC (Auto) Ur Epithelial Cells Hyaline Casts Urine Mucus Acetone, Qual Blood Type Antibody Screen 05/30/18 05/30/18 05/30/18 05:30 05:30 06:45 WBC RBC Hgb Hct MCV MCH MCHC RDW Plt Count MPV Absolute Neuts (auto) Neutrophils % Lymphocytes % Monocytes % Eosinophils % Basophils % Nucleated RBC % PT with INR INR Anticoagulation Therapy Puncture Site ABG pH ABG pCO2 at Pt Temp ABG pO2 at Pt Temp ABG HCO3 ABG O2 Sat (Measured) ABG O2 Content ABG Base Excess Ivan Test O2 Delivery Device Oxygen Flow Rate Vent Mode Vent Rate Mechanical Rate Pressure Support Vent Sodium Cancelled Potassium Cancelled Chloride Cancelled Carbon Dioxide Cancelled Anion Gap Cancelled BUN Cancelled Creatinine Cancelled Creat Clearance w eGFR Cancelled POC Glucometer 149.11894 Random Glucose Cancelled Hemoglobin A1c % 8.0 H Calcium Cancelled Phosphorus Magnesium Total Bilirubin Cancelled AST Cancelled ALT Cancelled Alkaline Phosphatase Cancelled Creatine Kinase Creatine Kinase Index CK-MB (CK-2) Troponin I Total Protein Cancelled Albumin Cancelled Urine Color Urine Appearance Urine pH Ur Specific [place] Urine Protein Urine Glucose (UA) Urine Ketones Urine Blood Urine Nitrite Urine Bilirubin Urine Urobilinogen Ur Leukocyte Esterase Urine WBC (Auto) Urine RBC (Auto) Ur Epithelial Cells Hyaline Casts Urine Mucus Acetone, Qual Blood Type Antibody Screen 05/30/18 05/30/18 05/30/18 08:15 08:18 09:33 WBC RBC Hgb Hct MCV MCH MCHC RDW Plt Count MPV Absolute Neuts (auto) Neutrophils % Lymphocytes % Monocytes % Eosinophils % Basophils % Nucleated RBC % PT with INR INR Anticoagulation Therapy Puncture Site ABG pH ABG pCO2 at Pt Temp ABG pO2 at Pt Temp ABG HCO3 ABG O2 Sat (Measured) ABG O2 Content ABG Base Excess Ivan Test O2 Delivery Device Oxygen Flow Rate Vent Mode Vent Rate Mechanical Rate Pressure Support Vent Sodium 139 Potassium 3.0 L Chloride 109 H Carbon Dioxide 19 L Anion Gap 11 BUN 36 H Creatinine 1.1 Creat Clearance w eGFR > 60 POC Glucometer 103.06875 81.14326 Random Glucose 89 Hemoglobin A1c % Calcium 7.9 L Phosphorus Magnesium Total Bilirubin AST ALT Alkaline Phosphatase Creatine Kinase Creatine Kinase Index CK-MB (CK-2) Troponin I Total Protein Albumin Urine Color Urine Appearance Urine pH Ur Specific [place] Urine Protein Urine Glucose (UA) Urine Ketones Urine Blood Urine Nitrite Urine Bilirubin Urine Urobilinogen Ur Leukocyte Esterase Urine WBC (Auto) Urine RBC (Auto) Ur Epithelial Cells Hyaline Casts Urine Mucus Acetone, Qual Blood Type Antibody Screen 05/30/18 10:32 WBC RBC Hgb Hct MCV MCH MCHC RDW Plt Count MPV Absolute Neuts (auto) Neutrophils % Lymphocytes % Monocytes % Eosinophils % Basophils % Nucleated RBC % PT with INR INR Anticoagulation Therapy Puncture Site ABG pH ABG pCO2 at Pt Temp ABG pO2 at Pt Temp ABG HCO3 ABG O2 Sat (Measured) ABG O2 Content ABG Base Excess Ivan Test O2 Delivery Device Oxygen Flow Rate Vent Mode Vent Rate Mechanical Rate Pressure Support Vent Sodium Potassium Chloride Carbon Dioxide Anion Gap BUN Creatinine Creat Clearance w eGFR POC Glucometer 122.08431 Random Glucose Hemoglobin A1c % Calcium Phosphorus Magnesium Total Bilirubin AST ALT Alkaline Phosphatase Creatine Kinase Creatine Kinase Index CK-MB (CK-2) Troponin I Total Protein Albumin Urine Color Urine Appearance Urine pH Ur Specific [place] Urine Protein Urine Glucose (UA) Urine Ketones Urine Blood Urine Nitrite Urine Bilirubin Urine Urobilinogen Ur Leukocyte Esterase Urine WBC (Auto) Urine RBC (Auto) Ur Epithelial Cells Hyaline Casts Urine Mucus Acetone, Qual Blood Type Antibody Screen ASSESSMENT/PLAN: ARF Resolving Hyperglycemia / Admitted for suspected DKA R/O LLL PNA S/P Fall Atelectasis D/C insulin drip O2 as needed ABX coverage PO as tolerated Follow BGM Floor IVF Check and follow urinary anitgen and sputum cultures Dr Licea
[2018-05-30 13:00] VITALS: BMI 22.2
[2018-05-30] MEDS: INSULIN (NOVOLOG) ASPART 100 UNITS/ML 10ML VIAL SQ ONE ×2 (13:37→15:34)
[2018-05-30] MEDS ORDERED: SODIUM CHLORIDE 1,000 ML with POTASSIUM CHLORIDE 20 MEQ IVPB SCH (14:00)
[2018-05-30] MEDS ORDERED: POTASSIUM CHLORIDE TABS 20 MEQ TABLET.ER (FP) PO ONE (14:23)
--- NOTE | 2018-05-30 14:53 | ECHO ---
Name: JARED CONSTANCE Exam:Adult Echocardiogram Study Date: 05/30/2018 01:33 PM Age: 78 yrs Reason For Study: syncope Height: 66 in Weight: 130 lb BSA: 1.7 m2 BP: 130/70 mmHg MMode/2D Measurements & Calculations IVSd: 0.83 cm Ao root diam: 3.1 cm LVIDd: 4.9 cm LA dimension: 3.5 cm LVIDs: 3.1 cm LVPWd: 0.85 cm EDV(Teich): 114.0 ml LVOT diam: 2.1 cm ESV(Teich): 37.2 ml TAPSE: 1.3 cm RV S Jordy: 14.0 cm/sec Doppler Measurements & Calculations MV E max jordy: 82.5 cm/sec Med Peak E' Jordy: 7.3 cm/sec MV A max jordy: 100.9 cm/sec Med E/e': 11.3 MV E/A: 0.82 Lat Peak E' Jordy: 6.0 cm/sec Lat E/e': 13.8 Procedure A complete two-dimensional transthoracic echocardiogram was performed (2D, M-mode, Doppler and color flow Doppler). Left Ventricle The left ventricular size, thickness and function are normal. The left ventricular ejection fraction is normal. Ejection Fraction = 55-60%. No regional wall motion abnormalities noted. Right Ventricle The right ventricle is normal in size and function. Atria Normal left and right atrial size and function. Mitral Valve There is trace mitral regurgitation. Tricuspid Valve No tricuspid regurgitation. There was insufficient TR detected to calculate RV systolic pressure. Aortic Valve No hemodynamically significant valvular aortic stenosis. No aortic regurgitation is present. Pulmonic Valve There is no pulmonic valvular regurgitation. Great Vessels The aortic root is normal size. Pericardium/Pleura There is no pericardial effusion. Interpretation Summary The left ventricular size, thickness and function are normal. The right ventricle is normal in size and function. There is trace mitral regurgitation. MD Chandrakant Red 05/30/2018 02:53 PM
[2018-05-30] MEDS ORDERED: INSULIN SLIDING SCALE (NOVOLOG) 1 VIAL SQ SCH (16:30)
--- NOTE | 2018-05-30 16:49 | CON.ID ---
Consult Consult Specialty:: infedtious diseases Referred by:: Dr Penn Reason for Consultation:: sepsis,pneumonia - History of Present Illness Chief Complaint: weakness History of Present Illness: Patient is a 78 year old male with a significant past medical history of who presents to the ED with complaints of general body aches s/p fall that occurred . Patient reports sitting in his chair when he slipped, falling on a carpeted floor on to his legs. He reports being unable to get up from the floor himself, prompting him to email his sister to alert EMS to assist him after being on the floor for multiple hours. Patient reports experiencing general body weakness as well as cold like symptoms that he states made him to weak to get up himself. Denies chest pain, Sob. Denies nausea, vomiting. Denies contact with sick individuals, out of state travelling. Denies loss of consciousness, head trauma. Denies any other symptoms. patient was worked up found to be in dka with weakness and admitted to icu currently in icu the patient feels better but weak - History Source History Provided By: Patient, Medical Record Limitations to Obtaining History: Clinical Condition - Alcohol/Substance Use Hx Alcohol Use: No - Smoking History Smoking history: Never smoked Home Medications - Allergies Allergies/Adverse Reactions: Allergies Allergy/AdvReac Type Severity Reaction Status Date / Time No Known Allergies Allergy Verified 05/29/18 11:56 - Home Medications Home Medications: Ambulatory Orders metFORMIN HCL [Metformin HCl] 500 mg PO TID 05/29/18 Review of Systems - Review of Systems Constitutional: reports: Weakness Eyes: reports: No Symptoms HENT: reports: No Symptoms Neck: reports: No Symptoms Cardiovascular: reports: No Symptoms Respiratory: reports: No Symptoms Gastrointestinal: reports: No Symptoms Genitourinary: reports: Urgency Musculoskeletal: reports: No Symptoms Integumentary: reports: No Symptoms Neurological: reports: No Symptoms Endocrine: reports: No Symptoms Hematology/Lymphatic: reports: No Symptoms Psychiatric: reports: No Symptoms Physical Exam Vital Signs: Vital Signs Temperature 98.0 F 05/30/18 14:00 Pulse Rate 68 05/30/18 14:00 Respiratory Rate 25 H 05/30/18 14:00 Blood Pressure 138/75 05/30/18 14:00 O2 Sat by Pulse Oximetry (%) 97 05/30/18 09:00 Constitutional: Yes: Calm, Thin Eyes: Yes: Conjunctiva Clear Cardiovascular: Yes: Regular Rate and Rhythm Respiratory: Yes: Regular, Poor Air Entry (at the lower bases) Gastrointestinal: Yes: Normal Bowel Sounds, Soft Musculoskeletal: Yes: WNL Extremities: Yes: WNL Neurological: Yes: Alert, Oriented Psychiatric: Yes: Alert, Oriented Labs: CBC, BMP 05/30/18 05:30 05/30/18 08:15 Imaging - Results Chest X-ray: Report Reviewed, Image Reviewed Cat Scan: Report Reviewed, Image Reviewed Assessment/Plan ARF Resolving Hyperglycemia / Admitted for suspected DKA LLL PNA S/P Fall Atelectasis plan will start on zosyn will monitor and decide further mgmt incentive terrie rest as per the team
--- NOTE | 2018-05-30 17:46 | PN ---
Progress Note, Physician - Current Medication List Current Medications: Active Medications Acetaminophen (Tylenol -) 650 mg PO Q6H PRN PRN Reason: FEVER Chlorhexidine Gluconate (Hibiclens For Decolonization -) 1 applic TP HS MECHELLE Heparin Sodium (Porcine) (Heparin -) 5,000 unit SQ TID MECHELLE Last Admin: 05/30/18 13:38 Dose: 5,000 unit Azithromycin 250 mg/ Dextrose 250 mls @ 250 mls/hr IVPB DAILY MECHELLE Last Admin: 05/30/18 12:54 Dose: 250 mls/hr Ceftriaxone Sodium 1 gm/ (Dextrose) 50 mls @ 100 mls/hr IVPB DAILY MECHELLE; Protocol Last Admin: 05/30/18 10:16 Dose: 100 mls/hr Piperacillin Sod/Tazobactam (Sod 3.375 gm/ Dextrose) 50 mls @ 100 mls/hr IVPB Q8H-IV MECHELLE; Protocol Insulin Aspart (Novolog Vial Sliding Scale -) 1 vial SQ ACHS MECHELLE; Protocol Mupirocin (Bactroban Ointment (For Decolonization) -) 1 applic NS BID MECHELLE Stop: 06/04/18 09:59 Last Admin: 05/30/18 11:42 Dose: 1 applic - Objective Vital Signs: Vital Signs Temperature 98.0 F 05/30/18 14:00 Pulse Rate 68 05/30/18 14:00 Respiratory Rate 25 H 05/30/18 14:00 Blood Pressure 138/75 05/30/18 14:00 O2 Sat by Pulse Oximetry (%) 97 05/30/18 09:00 Constitutional: Yes: No Distress HENT: Yes: Atraumatic Neck: Yes: Supple Cardiovascular: Yes: Regular Rate and Rhythm Respiratory: Yes: Rhonchi Gastrointestinal: Yes: Normal Bowel Sounds Extremities: Yes: WNL Edema: No Peripheral Pulses WNL: Yes Neurological: Yes: Alert, Oriented Labs: CBC, BMP 05/30/18 05:30 05/30/18 08:15 INR, PTT INR 1.12 (0.83-1.09) H 05/29/18 12:30 Problem List - Problems (1) Pneumonia Assessment/Plan: iv abx cxs sent id consult Code(s): J18.9 - PNEUMONIA, UNSPECIFIED ORGANISM Qualifiers: Pneumonia type: due to unspecified organism Laterality: left Lung location: lower lobe of lung Qualified Code(s): J18.1 - Lobar pneumonia, unspecified organism
--- NOTE | 2018-05-30 17:56 | PN ---
Physical Exam: SUBJECTIVE: Patient seen and examined. In the AM Pt. glucose found to be 145. PT. was switched to D5-LR @ 150 ml/hr. Per overnight resident, Pt. was not started on Insulin drip until 4am. Pt. denies any acute events overnight and is now asking for food. OBJECTIVE: Vital Signs Period Temp Pulse Resp BP Sys/Shrestha Pulse Ox Last 24 Hr 98.0 F-98.5 F 65-95 15-25 113-154/45-89 96-98 GENERAL: The patient is awake, alert, and fully oriented, in no acute distress. HEAD: Normal with no signs of trauma. EYES: PERRL, extraocular movements intact, sclera anicteric, conjunctiva clear. No ptosis. ENT: Ears normal, nares patent, oropharynx clear without exudates, moist mucous membranes. LUNGS: LLL crackles, no wheezing, no accessory muscle use HEART: Regular rate and rhythm, S1, S2 without murmur ABDOMEN: Soft, nontender, nondistended, normoactive bowel sounds, no guarding, no rebound EXTREMITIES: 1+ dorsal pedal pulses, warm, no calf tenderness, well-perfused, no edema. NEUROLOGICAL: Normal speech, gait not observed. PSYCH: Normal mood, normal affect. SKIN: Warm, dry, normal turgor Laboratory Results - last 24 hr 05/29/18 05/29/18 05/29/18 15:15 17:01 19:05 WBC RBC Hgb Hct MCV MCH MCHC RDW Plt Count MPV Absolute Neuts (auto) Neutrophils % Lymphocytes % Monocytes % Eosinophils % Basophils % Nucleated RBC % Anticoagulation Therapy No Result Required. Puncture Site No Result Required. ABG pH 7.42 ABG pCO2 at Pt Temp 25.7 L ABG pO2 at Pt Temp 66.1 L ABG HCO3 16.3 L ABG O2 Sat (Measured) 90.5 ABG O2 Content 16.9 ABG Base Excess -6.3 L Ivan Test Positive O2 Delivery Device No Result Required. Oxygen Flow Rate No Result Required. Vent Mode No Result Required. Vent Rate No Result Required. Mechanical Rate No Result Required. Pressure Support Vent No Result Required. Sodium Potassium Chloride Carbon Dioxide Anion Gap BUN Creatinine Creat Clearance w eGFR POC Glucometer Random Glucose Hemoglobin A1c % Calcium Phosphorus Magnesium Total Bilirubin AST ALT Alkaline Phosphatase Total Protein Albumin Urine WBC (Auto) 2 Urine RBC (Auto) <1 Ur Epithelial Cells Rare Hyaline Casts 1 Urine Mucus Rare Blood Type O POSITIVE Antibody Screen Negative 05/29/18 05/29/18 05/29/18 20:16 20:20 23:23 WBC RBC Hgb Hct MCV MCH MCHC RDW Plt Count MPV Absolute Neuts (auto) Neutrophils % Lymphocytes % Monocytes % Eosinophils % Basophils % Nucleated RBC % Anticoagulation Therapy Puncture Site ABG pH ABG pCO2 at Pt Temp ABG pO2 at Pt Temp ABG HCO3 ABG O2 Sat (Measured) ABG O2 Content ABG Base Excess Ivan Test O2 Delivery Device Oxygen Flow Rate Vent Mode Vent Rate Mechanical Rate Pressure Support Vent Sodium 137 135 L Potassium 3.3 L 3.9 Chloride 101 101 Carbon Dioxide 21 17 L Anion Gap 15 17 H BUN 41 H 41 H Creatinine 1.3 1.3 Creat Clearance w eGFR 53.53 53.53 POC Glucometer 249.71960 Random Glucose 222 H 271 H Hemoglobin A1c % Calcium 8.2 L 7.7 L Phosphorus Magnesium Total Bilirubin AST ALT Alkaline Phosphatase Total Protein Albumin Urine WBC (Auto) Urine RBC (Auto) Ur Epithelial Cells Hyaline Casts Urine Mucus Blood Type Antibody Screen 05/30/18 05/30/18 05/30/18 03:04 04:44 05:30 WBC 13.2 H RBC 4.96 Hgb 13.8 Hct 43.2 MCV 87.2 MCH 27.8 MCHC 31.8 L RDW 15.4 Plt Count 271 MPV 9.8 Absolute Neuts (auto) 11.3 H Neutrophils % 85.6 H Lymphocytes % 4.4 L D Monocytes % 9.4 Eosinophils % 0.3 D Basophils % 0.3 Nucleated RBC % 0 Anticoagulation Therapy Puncture Site ABG pH ABG pCO2 at Pt Temp ABG pO2 at Pt Temp ABG HCO3 ABG O2 Sat (Measured) ABG O2 Content ABG Base Excess Ivan Test O2 Delivery Device Oxygen Flow Rate Vent Mode Vent Rate Mechanical Rate Pressure Support Vent Sodium Potassium Chloride Carbon Dioxide Anion Gap BUN Creatinine Creat Clearance w eGFR POC Glucometer 263.97752 220.02513 Random Glucose Hemoglobin A1c % Calcium Phosphorus Magnesium Total Bilirubin AST ALT Alkaline Phosphatase Total Protein Albumin Urine WBC (Auto) Urine RBC (Auto) Ur Epithelial Cells Hyaline Casts Urine Mucus Blood Type Antibody Screen 05/30/18 05/30/18 05/30/18 05:30 05:30 05:30 WBC RBC Hgb Hct MCV MCH MCHC RDW Plt Count MPV Absolute Neuts (auto) Neutrophils % Lymphocytes % Monocytes % Eosinophils % Basophils % Nucleated RBC % Anticoagulation Therapy Puncture Site ABG pH ABG pCO2 at Pt Temp ABG pO2 at Pt Temp ABG HCO3 ABG O2 Sat (Measured) ABG O2 Content ABG Base Excess Ivan Test O2 Delivery Device Oxygen Flow Rate Vent Mode Vent Rate Mechanical Rate Pressure Support Vent Sodium 140 Cancelled Potassium 3.5 Cancelled Chloride 108 H Cancelled Carbon Dioxide 20 L Cancelled Anion Gap 12 Cancelled BUN 37 H Cancelled Creatinine 1.2 Cancelled Creat Clearance w eGFR 58.71 Cancelled POC Glucometer Random Glucose 162 H Cancelled Hemoglobin A1c % 8.0 H Calcium 8.2 L Cancelled Phosphorus 2.0 L Magnesium 2.6 H Total Bilirubin 0.8 Cancelled AST 36 Cancelled ALT 24 Cancelled Alkaline Phosphatase 90 Cancelled Total Protein 5.7 L Cancelled Albumin 2.3 L Cancelled Urine WBC (Auto) Urine RBC (Auto) Ur Epithelial Cells Hyaline Casts Urine Mucus Blood Type Antibody Screen 05/30/18 05/30/18 05/30/18 06:45 08:15 08:18 WBC RBC Hgb Hct MCV MCH MCHC RDW Plt Count MPV Absolute Neuts (auto) Neutrophils % Lymphocytes % Monocytes % Eosinophils % Basophils % Nucleated RBC % Anticoagulation Therapy Puncture Site ABG pH ABG pCO2 at Pt Temp ABG pO2 at Pt Temp ABG HCO3 ABG O2 Sat (Measured) ABG O2 Content ABG Base Excess Ivan Test O2 Delivery Device Oxygen Flow Rate Vent Mode Vent Rate Mechanical Rate Pressure Support Vent Sodium 139 Potassium 3.0 L Chloride 109 H Carbon Dioxide 19 L Anion Gap 11 BUN 36 H Creatinine 1.1 Creat Clearance w eGFR > 60 POC Glucometer 149.71511 103.32562 Random Glucose 89 Hemoglobin A1c % Calcium 7.9 L Phosphorus Magnesium Total Bilirubin AST ALT Alkaline Phosphatase Total Protein Albumin Urine WBC (Auto) Urine RBC (Auto) Ur Epithelial Cells Hyaline Casts Urine Mucus Blood Type Antibody Screen 05/30/18 05/30/18 05/30/18 09:33 10:32 13:21 WBC RBC Hgb Hct MCV MCH MCHC RDW Plt Count MPV Absolute Neuts (auto) Neutrophils % Lymphocytes % Monocytes % Eosinophils % Basophils % Nucleated RBC % Anticoagulation Therapy Puncture Site ABG pH ABG pCO2 at Pt Temp ABG pO2 at Pt Temp ABG HCO3 ABG O2 Sat (Measured) ABG O2 Content ABG Base Excess Ivan Test O2 Delivery Device Oxygen Flow Rate Vent Mode Vent Rate Mechanical Rate Pressure Support Vent Sodium Potassium Chloride Carbon Dioxide Anion Gap BUN Creatinine Creat Clearance w eGFR POC Glucometer 81.40687 122.47879 349.66749 Random Glucose Hemoglobin A1c % Calcium Phosphorus Magnesium Total Bilirubin AST ALT Alkaline Phosphatase Total Protein Albumin Urine WBC (Auto) Urine RBC (Auto) Ur Epithelial Cells Hyaline Casts Urine Mucus Blood Type Antibody Screen Active Medications Current Medications Acetaminophen (Tylenol -) 650 mg PO Q6H PRN PRN Reason: FEVER Chlorhexidine Gluconate (Hibiclens For Decolonization -) 1 applic TP HS [facility] Heparin Sodium (Porcine) (Heparin -) 5,000 unit SQ TID [facility] Last Admin: 05/30/18 13:38 Dose: 5,000 unit Azithromycin 250 mg/ Dextrose 250 mls @ 250 mls/hr IVPB DAILY [facility] Last Admin: 05/30/18 12:54 Dose: 250 mls/hr Ceftriaxone Sodium 1 gm/ (Dextrose) 50 mls @ 100 mls/hr IVPB DAILY [facility]; Protocol Last Admin: 05/30/18 10:16 Dose: 100 mls/hr Piperacillin Sod/Tazobactam (Sod 3.375 gm/ Dextrose) 50 mls @ 100 mls/hr IVPB Q8H-IV [facility]; Protocol Insulin Aspart (Novolog Vial Sliding Scale -) 1 vial SQ ACHS [facility]; Protocol Mupirocin (Bactroban Ointment (For Decolonization) -) 1 applic NS BID [facility] Stop: 06/04/18 09:59 Last Admin: 05/30/18 11:42 Dose: 1 applic Potassium Chloride (K-Dur -) 40 meq PO DAILY [facility] ASSESSMENT/PLAN: A 78 y.o. M w/ PMHx. of DM2 for 30 years and CAD( 2 stents placed 7 years ago, does not take medication for stent), presents to the ED s/p syncopal episode with LLL pneumonia and DKA. #Endocrine -Hyperglycemia vs. DKA 2/2 likely pneumonia-resolving C/w Azithromycin and Ceftriaxone D/C Insulin drip Start ISS BGM monitoring NS @ 200ml/hr w/ 20meq K+ UA positive for ketones, glucose and acetone Glucose 162 Anion Gap: 12 Given normal Bicarbonate, normal range pH on admission ABG and speed of resolution of hyperglycemia, Pt. likely does not have DKA, can manage as hyperglycemic Pt. #Cardiovascular -CAD-stable s/p 2 stents 7 years ago does not take any medications currently EKG shows NSR -R/O Cardiogenic etiology for syncopal episode Echo: normal LA, RA, LV, RV size and Fxn. trace MR. Carotid Duplex shows moderate size plaque, no pleural effusion #F/E/N -IVF as per Primary team -monitor and replete electrolytes as needed, Hyponatremia and Hypokalemia are resolving -Diabetic diet Dispo: We will continue to follow the patient. Thank you for this consultative opportunity. Visit type - Emergency Visit Emergency Visit: Yes ED Registration Date: 05/29/18 Care time: The patient presented to the Emergency Department on the above date and was hospitalized for further evaluation of their emergent condition. - New Patient This patient is new to me today: No - Critical Care Critical Care patient: Yes Total Critical Care Time (in minutes): 40 Critical Care Statement: The care of this patient involved high complexity decision making to prevent further life threatening deterioration of the patient 's condition and/or to evaluate & treat vital organ system(s) failure or risk of failure. - Discharge Referral Referred to [facility] Med [facility] No
[2018-05-30] MEDS ORDERED: PIPERACILLIN/TAZOBACTAM 3.375 GM VIAL IVPB ONE ×2 (17:58→22:51)
[2018-05-30] MEDS ORDERED: POTASSIUM CHLORIDE TABS 20 MEQ TABLET.ER (FP) PO SCH (18:00)
[2018-05-30] MEDS: PIPERACILLIN/TAZOB 3.375 GM 3.375 GM in DEXTROSE 5%-WATER - 50 ML IVPB SCH (18:19)
[2018-05-30 19:21] LABS: ANION GAP 13 MMOL/L (8-16); BLOOD UREA NITROGEN 32 mg/dL (7-18); CALCIUM 7.9 mg/dL (8.5-10.1); CHLORIDE 104 mmol/L (98-107); CO2 18 mmol/L (21-32); GLUCOSE,RANDOM 213 mg/dL (74-106); SODIUM 135 mmol/L (136-145)
[2018-05-30] MEDS ORDERED: ACETAMINOPHEN 325 MG TABLET (FP) PO PRN (20:04)
[2018-05-30] MEDS ORDERED: INSULIN (NOVOLOG) ASPART 100 UNITS/ML 10ML VIAL ONE (21:32)
[2018-05-30] MEDS ORDERED: CHLORHEXIDINE GLUCONATE 4% CLEANSER FOR DECOLONIZATION TP SCH ×2 (22:00)
[2018-05-30] MEDS: INSULIN SLIDING SCALE (NOVOLOG) 1 VIAL SQ SCH (22:38)
[2018-05-31] MEDS ORDERED: ZOLPIDEM TARTRATE 5 MG TABLET PO ONE (01:30)
[2018-05-31] MEDS: PIPERACILLIN/TAZOB 3.375 GM 3.375 GM in DEXTROSE 5%-WATER - 50 ML IVPB SCH ×3 (01:36→18:42)
[2018-05-31] MEDS: INSULIN SLIDING SCALE (NOVOLOG) 1 VIAL SQ SCH ×4 (06:41→22:39)
[2018-05-31] MEDS: HEPARIN NA (PORCINE) 5,000 UNITS/ML 1ML VIAL SQ SCH ×3 (06:42→22:39)
[2018-05-31 08:10] LABS: HEMATOCRIT 40.9 % (35.4-49); HEMOGLOBIN 13.3 GM/dL (11.7-16.9); MCHC 32.5 g/dl (32.0-35.9); MEAN CELL VOLUME 86.2 fl (80-96); MEAN PLT VOLUME 9.7 fl (7.5-11.1); PLATELET COUNT 277 K/MM3 (134-434); RBC 4.75 M/mm3 (4.00-5.60); RDW 15.7 % (11.9-15.9); WHITE BLOOD COUNT 12.4 K/mm3 (4.0-10.0)
[2018-05-31 08:32] LABS: MAGNESIUM 2.3 mg/dL (1.8-2.4); PHOSPHOROUS 2.6 mg/dL (2.5-4.9)
[2018-05-31] MEDS ORDERED: AZITHROMYCIN IVPB 250 MG in DEXTROSE 5%-WATER - 250 ML IVPB SCH (10:00)
[2018-05-31] MEDS ORDERED: CEFTRIAXONE 1 GM in DEXTROSE 5%-WATER - 50 ML IVPB SCH (10:00)
[2018-05-31] MEDS ORDERED: cefTRIAXone SODIUM 1 GM VIAL ONE (10:37)
[2018-05-31] MEDS ORDERED: PT OWN MED DRAWER 7, Y5N ONE (10:37)
[2018-05-31] MEDS ORDERED: DEXTROSE 5%-WATER - 50 ML IVPB ONE ×3 (10:37→18:33)
[2018-05-31] MEDS ORDERED: PIPERACILLIN/TAZOBACTAM 3.375 GM VIAL IVPB ONE ×2 (10:38→18:33)
--- NOTE | 2018-05-31 13:28 | PN ---
Progress Note, Physician History of Present Illness: doing well still feeling very weak - Current Medication List Current Medications: Active Medications Acetaminophen (Tylenol -) 650 mg PO Q6H PRN PRN Reason: FEVER Heparin Sodium (Porcine) (Heparin -) 5,000 unit SQ TID [facility] Last Admin: 05/31/18 06:42 Dose: 5,000 unit Piperacillin Sod/Tazobactam (Sod 3.375 gm/ Dextrose) 50 mls @ 100 mls/hr IVPB Q8H-IV [facility]; Protocol Last Admin: 05/31/18 10:53 Dose: 100 mls/hr Azithromycin 250 mg/ Dextrose 250 mls @ 250 mls/hr IVPB DAILY [facility] Last Admin: 05/31/18 10:52 Dose: 250 mls/hr Ceftriaxone Sodium 1 gm/ (Dextrose) 50 mls @ 100 mls/hr IVPB DAILY [facility]; Protocol Last Admin: 05/31/18 10:52 Dose: 100 mls/hr Insulin Aspart (Novolog Vial Sliding Scale -) 1 vial SQ ACHS [facility]; Protocol Last Admin: 05/31/18 11:42 Dose: 4 units - Objective Vital Signs: Vital Signs Temperature 97.5 F L 05/31/18 10:00 Pulse Rate 72 05/31/18 10:00 Respiratory Rate 20 05/31/18 10:00 Blood Pressure 144/78 05/31/18 10:00 O2 Sat by Pulse Oximetry (%) 97 05/30/18 09:00 Constitutional: Yes: No Distress, Calm Cardiovascular: Yes: Regular Rate and Rhythm Respiratory: Yes: Regular, CTA Bilaterally Gastrointestinal: Yes: Normal Bowel Sounds, Soft Genitourinary: Yes: Freeman Present Musculoskeletal: Yes: WNL Extremities: Yes: WNL Neurological: Yes: Alert, Oriented Labs: CBC, BMP 05/31/18 07:08 05/30/18 18:00 INR, PTT INR 1.12 (0.83-1.09) H 05/29/18 12:30 Assessment/Plan ARF Resolving Hyperglycemia / Admitted for suspected DKA LLL PNA S/P Fall Atelectasis plan ct zosyn will monitor and decide further mgmt incentive terrie rest as per the team
--- NOTE | 2018-05-31 15:59 | PN ---
Progress Note, Physician History of Present Illness: difficulty passing urine - Current Medication List Current Medications: Active Medications Acetaminophen (Tylenol -) 650 mg PO Q6H PRN PRN Reason: FEVER Heparin Sodium (Porcine) (Heparin -) 5,000 unit SQ TID [facility] Last Admin: 05/31/18 15:01 Dose: 5,000 unit Piperacillin Sod/Tazobactam (Sod 3.375 gm/ Dextrose) 50 mls @ 100 mls/hr IVPB Q8H-IV [facility]; Protocol Last Admin: 05/31/18 10:53 Dose: 100 mls/hr Azithromycin 250 mg/ Dextrose 250 mls @ 250 mls/hr IVPB DAILY [facility] Last Admin: 05/31/18 10:52 Dose: 250 mls/hr Ceftriaxone Sodium 1 gm/ (Dextrose) 50 mls @ 100 mls/hr IVPB DAILY [facility]; Protocol Last Admin: 05/31/18 10:52 Dose: 100 mls/hr Insulin Aspart (Novolog Vial Sliding Scale -) 1 vial SQ ACHS [facility]; Protocol Last Admin: 05/31/18 11:42 Dose: 4 units - Objective Vital Signs: Vital Signs Temperature 97.5 F L 05/31/18 14:54 Pulse Rate 89 05/31/18 14:54 Respiratory Rate 16 05/31/18 14:54 Blood Pressure 131/76 05/31/18 14:54 O2 Sat by Pulse Oximetry (%) 97 05/30/18 09:00 Constitutional: Yes: No Distress HENT: Yes: Atraumatic Neck: Yes: Supple Cardiovascular: Yes: Regular Rate and Rhythm Respiratory: Yes: Rhonchi Gastrointestinal: Yes: Normal Bowel Sounds Extremities: Yes: WNL Edema: No Peripheral Pulses WNL: Yes Neurological: Yes: Alert, Oriented Labs: CBC, BMP 05/31/18 07:08 05/30/18 18:00 INR, PTT INR 1.12 (0.83-1.09) H 05/29/18 12:30 Problem List - Problems (1) Pneumonia Assessment/Plan: iv abx cxs sent id consult Code(s): J18.9 - PNEUMONIA, UNSPECIFIED ORGANISM Qualifiers: Pneumonia type: due to unspecified organism Laterality: left Lung location: lower lobe of lung Qualified Code(s): J18.1 - Lobar pneumonia, unspecified organism (2) Urinary retention due to benign prostatic hyperplasia Assessment/Plan: merino in place Code(s): N40.1 - BENIGN PROSTATIC HYPERPLASIA WITH LOWER URINARY TRACT SYMP; R33.8 - OTHER RETENTION OF URINE
--- NOTE | 2018-05-31 16:36 | CON.GU ---
Consult Consult Specialty:: urinary retention Referred by:: medicine Reason for Consultation:: urinary retention - History of Present Illness Chief Complaint: urinary retention History of Present Illness: 78 year old male with alzhemiers and diabetes with pneumonia. He was in the ICU. Is in urinary retention and merino cath was placed. - History Source History Provided By: Medical Record - Past Medical History [employer]: Yes: Alzheimer's - Alcohol/Substance Use Hx Alcohol Use: No - Smoking History Smoking history: Never smoked Home Medications - Allergies Allergies/Adverse Reactions: Allergies Allergy/AdvReac Type Severity Reaction Status Date / Time No Known Allergies Allergy Verified 05/29/18 11:56 - Home Medications Home Medications: Ambulatory Orders metFORMIN HCL [Metformin HCl] 500 mg PO TID 05/29/18 Review of Systems - Review of Systems Genitourinary: reports: Frequency, Incontinence, Urgency Physical Exam- Vital Signs: Vital Signs Temperature 97.5 F L 05/31/18 14:54 Pulse Rate 89 05/31/18 14:54 Respiratory Rate 16 05/31/18 14:54 Blood Pressure 131/76 05/31/18 14:54 O2 Sat by Pulse Oximetry (%) 97 05/30/18 09:00 Renal/: Yes: Merino Present. No: Bladder Distention, CVA Tenderness - Left, CVA Tenderness - Right, Hematuria Labs: CBC, BMP 05/31/18 07:08 05/30/18 18:00 Problem List - Problems (1) Urinary retention due to benign prostatic hyperplasia Assessment/Plan: recommend flomax and finasteride if not contraindicted. trial of void thereafter Code(s): N40.1 - BENIGN PROSTATIC HYPERPLASIA WITH LOWER URINARY TRACT SYMP; R33.8 - OTHER RETENTION OF URINE
[2018-05-31] MEDS: TAMSULOSIN HCL 0.4 MG CAP PO SCH (22:39)
[2018-06-01] MEDS ORDERED: DEXTROSE 5%-WATER - 50 ML IVPB ONE ×3 (02:39→16:58)
[2018-06-01] MEDS ORDERED: PIPERACILLIN/TAZOBACTAM 3.375 GM VIAL IVPB ONE ×3 (02:39→16:58)
[2018-06-01] MEDS: PIPERACILLIN/TAZOB 3.375 GM 3.375 GM in DEXTROSE 5%-WATER - 50 ML IVPB SCH ×3 (03:08→17:00)
[2018-06-01] MEDS: HEPARIN NA (PORCINE) 5,000 UNITS/ML 1ML VIAL SQ SCH ×3 (06:40→22:37)
[2018-06-01] MEDS: INSULIN SLIDING SCALE (NOVOLOG) 1 VIAL SQ SCH ×4 (06:41→22:35)
[2018-06-01 08:08] LABS: BASO % 0.5 % (0-2.0); EOS % 5.4 % (0-4.5); HEMATOCRIT 38.5 % (35.4-49); LYMPH % 8.8 % (8-40); MCH 28.7 pg (25.7-33.7); MCHC 33.9 g/dl (32.0-35.9); MEAN CELL VOLUME 84.7 fl (80-96); MEAN PLT VOLUME 9.5 fl (7.5-11.1); MONO % 11.3 % (3.8-10.2); PLATELET COUNT 274 K/MM3 (134-434); RBC 4.54 M/mm3 (4.00-5.60); RDW 15.9 % (11.9-15.9); WHITE BLOOD COUNT 10.5 K/mm3 (4.0-10.0)
[2018-06-01] MEDS: TAMSULOSIN HCL 0.4 MG CAP PO SCH (09:06)
[2018-06-01 09:08] LABS: ALBUMIN 1.9 g/dl (3.4-5.0); ALK PHOS 87 U/L (45-117); ANION GAP 12 MMOL/L (8-16); BILIRUBIN,TOTAL 0.6 mg/dL (0.2-1); BLOOD UREA NITROGEN 25 mg/dL (7-18); CALCIUM 7.4 mg/dL (8.5-10.1); CHLORIDE 106 mmol/L (98-107); CO2 20 mmol/L (21-32); CREATININE 0.9 mg/dL (0.55-1.3); GLUCOSE,RANDOM 193 mg/dL (74-106); POTASSIUM 3.6 mmol/L (3.5-5.1); SGOT/AST 24 U/L (15-37); SGPT/ALT 24 U/L (13-61); SODIUM 139 mmol/L (136-145)
--- NOTE | 2018-06-01 16:07 | PN ---
Progress Note, Physician History of Present Illness: Events noted. Pt currently alert, afebrile. Denies shortness of breath. Merino catheter placed for urinary retention - Current Medication List Current Medications: Active Medications Acetaminophen (Tylenol -) 650 mg PO Q6H PRN PRN Reason: FEVER Heparin Sodium (Porcine) (Heparin -) 5,000 unit SQ TID [facility] Last Admin: 06/01/18 13:58 Dose: 5,000 unit Piperacillin Sod/Tazobactam (Sod 3.375 gm/ Dextrose) 50 mls @ 100 mls/hr IVPB Q8H-IV [facility]; Protocol Last Admin: 06/01/18 09:07 Dose: 100 mls/hr Insulin Aspart (Novolog Vial Sliding Scale -) 1 vial SQ ACHS [facility]; Protocol Last Admin: 06/01/18 12:10 Dose: 8 units Tamsulosin HCl (Flomax -) 0.4 mg PO DAILY@0830 [facility] Last Admin: 06/01/18 09:06 Dose: 0.4 mg - Objective Vital Signs: Vital Signs Temperature 97.5 F L 06/01/18 14:46 Pulse Rate 93 H 06/01/18 14:46 Respiratory Rate 18 06/01/18 14:46 Blood Pressure 127/73 06/01/18 14:46 O2 Sat by Pulse Oximetry (%) 95 06/01/18 09:00 Constitutional: Yes: No Distress, Calm Cardiovascular: Yes: Regular Rate and Rhythm Respiratory: Yes: Other (good air entry b/l) Gastrointestinal: Yes: Normal Bowel Sounds, Soft Genitourinary: Yes: Merino Present Neurological: Yes: Alert, Oriented Labs: CBC, BMP 06/01/18 07:00 06/01/18 07:00 INR, PTT INR 1.12 (0.83-1.09) H 05/29/18 12:30 Problem List - Problems (1) Pneumonia Code(s): J18.9 - PNEUMONIA, UNSPECIFIED ORGANISM Qualifiers: Pneumonia type: due to unspecified organism Laterality: left Lung location: lower lobe of lung Qualified Code(s): J18.1 - Lobar pneumonia, unspecified organism (2) Urinary retention due to benign prostatic hyperplasia Code(s): N40.1 - BENIGN PROSTATIC HYPERPLASIA WITH LOWER URINARY TRACT SYMP; R33.8 - OTHER RETENTION OF URINE Assessment/Plan Hyperglycemia/Possible DKA on admission LLL PNA Urinary retention now s/p merino insertion -- cont. current antibiotics -- pt without respiratory distress -- needs glycemic control cont. monitor
--- NOTE | 2018-06-01 16:49 | PN ---
Progress Note, Physician - Current Medication List Current Medications: Active Medications Acetaminophen (Tylenol -) 650 mg PO Q6H PRN PRN Reason: FEVER Heparin Sodium (Porcine) (Heparin -) 5,000 unit SQ TID [facility] Last Admin: 06/01/18 13:58 Dose: 5,000 unit Piperacillin Sod/Tazobactam (Sod 3.375 gm/ Dextrose) 50 mls @ 100 mls/hr IVPB Q8H-IV [facility]; Protocol Last Admin: 06/01/18 09:07 Dose: 100 mls/hr Insulin Aspart (Novolog Vial Sliding Scale -) 1 vial SQ ACHS [facility]; Protocol Last Admin: 06/01/18 12:10 Dose: 8 units Tamsulosin HCl (Flomax -) 0.4 mg PO DAILY@0830 [facility] Last Admin: 06/01/18 09:06 Dose: 0.4 mg - Objective Vital Signs: Vital Signs Temperature 97.5 F L 06/01/18 14:46 Pulse Rate 93 H 06/01/18 14:46 Respiratory Rate 18 06/01/18 14:46 Blood Pressure 127/73 06/01/18 14:46 O2 Sat by Pulse Oximetry (%) 95 06/01/18 09:00 Constitutional: Yes: No Distress HENT: Yes: Atraumatic Neck: Yes: Supple Cardiovascular: Yes: Regular Rate and Rhythm Respiratory: Yes: CTA Bilaterally Gastrointestinal: Yes: Normal Bowel Sounds Extremities: Yes: WNL Neurological: Yes: Alert, Oriented Labs: CBC, BMP 06/01/18 07:00 06/01/18 07:00 INR, PTT INR 1.12 (0.83-1.09) H 05/29/18 12:30 Problem List - Problems (1) Pneumonia Assessment/Plan: iv abx cxs noted id consult Code(s): J18.9 - PNEUMONIA, UNSPECIFIED ORGANISM Qualifiers: Pneumonia type: due to unspecified organism Laterality: left Lung location: lower lobe of lung Qualified Code(s): J18.1 - Lobar pneumonia, unspecified organism (2) Urinary retention due to benign prostatic hyperplasia Assessment/Plan: on flomax now merino in place Code(s): N40.1 - BENIGN PROSTATIC HYPERPLASIA WITH LOWER URINARY TRACT SYMP; R33.8 - OTHER RETENTION OF URINE
[2018-06-01] MEDS ORDERED: PT OWN MED DRAWER 7, Y5N ONE (21:38)
[2018-06-01] MEDS ORDERED: INSULIN (NOVOLOG) ASPART 100 UNITS/ML 10ML VIAL ONE (21:40)
[2018-06-02] MEDS ORDERED: PIPERACILLIN/TAZOBACTAM 3.375 GM VIAL IVPB ONE ×3 (00:11→17:04)
[2018-06-02] MEDS ORDERED: DEXTROSE 5%-WATER - 50 ML IVPB ONE ×3 (00:12→17:04)
[2018-06-02] MEDS: PIPERACILLIN/TAZOB 3.375 GM 3.375 GM in DEXTROSE 5%-WATER - 50 ML IVPB SCH ×3 (01:36→17:16)
[2018-06-02] MEDS: INSULIN SLIDING SCALE (NOVOLOG) 1 VIAL SQ SCH ×4 (06:53→22:33)
[2018-06-02] MEDS: HEPARIN NA (PORCINE) 5,000 UNITS/ML 1ML VIAL SQ SCH ×3 (06:53→22:33)
[2018-06-02] MEDS: TAMSULOSIN HCL 0.4 MG CAP PO SCH (08:33)
--- NOTE | 2018-06-02 16:12 | PN ---
Progress Note, Physician History of Present Illness: Pt states he is feeling better. Denies shortness of breath. Remains afebrile. - Current Medication List Current Medications: Active Medications Acetaminophen (Tylenol -) 650 mg PO Q6H PRN PRN Reason: FEVER Heparin Sodium (Porcine) (Heparin -) 5,000 unit SQ TID [facility] Last Admin: 06/02/18 13:21 Dose: 5,000 unit Piperacillin Sod/Tazobactam (Sod 3.375 gm/ Dextrose) 50 mls @ 100 mls/hr IVPB Q8H-IV [facility]; Protocol Last Admin: 06/02/18 09:44 Dose: 100 mls/hr Insulin Aspart (Novolog Vial Sliding Scale -) 1 vial SQ ACHS [facility]; Protocol Last Admin: 06/02/18 11:31 Dose: 8 units Tamsulosin HCl (Flomax -) 0.4 mg PO DAILY@0830 [facility] Last Admin: 06/02/18 08:33 Dose: 0.4 mg - Objective Vital Signs: Vital Signs Temperature 97.7 F 06/02/18 14:48 Pulse Rate 87 06/02/18 14:02 Respiratory Rate 20 06/02/18 14:02 Blood Pressure 128/74 06/02/18 14:02 O2 Sat by Pulse Oximetry (%) 95 06/02/18 09:00 Constitutional: Yes: No Distress, Calm Cardiovascular: Yes: Regular Rate and Rhythm Respiratory: Yes: CTA Bilaterally Gastrointestinal: Yes: Normal Bowel Sounds, Soft Genitourinary: Yes: Merino Present Extremities: Yes: WNL Integumentary: Yes: WNL Neurological: Yes: Alert, Oriented Labs: CBC, BMP 06/01/18 07:00 06/01/18 07:00 INR, PTT INR 1.12 (0.83-1.09) H 05/29/18 12:30 Problem List - Problems (1) Pneumonia Code(s): J18.9 - PNEUMONIA, UNSPECIFIED ORGANISM Qualifiers: Pneumonia type: due to unspecified organism Laterality: left Lung location: lower lobe of lung Qualified Code(s): J18.1 - Lobar pneumonia, unspecified organism (2) Urinary retention due to benign prostatic hyperplasia Code(s): N40.1 - BENIGN PROSTATIC HYPERPLASIA WITH LOWER URINARY TRACT SYMP; R33.8 - OTHER RETENTION OF URINE Assessment/Plan Hyperglycemia/Possible DKA on admission LLL PNA Urinary retention / merino inserted -- cont. Zosyn for now, plan switch to oral as continues to improve -- pt without respiratory distress -- needs glycemic control -- renal function improving cont. monitor
--- NOTE | 2018-06-02 16:49 | PN ---
Progress Note, Physician History of Present Illness: merino in place - Current Medication List Current Medications: Active Medications Acetaminophen (Tylenol -) 650 mg PO Q6H PRN PRN Reason: FEVER Heparin Sodium (Porcine) (Heparin -) 5,000 unit SQ TID [facility] Last Admin: 06/02/18 13:21 Dose: 5,000 unit Piperacillin Sod/Tazobactam (Sod 3.375 gm/ Dextrose) 50 mls @ 100 mls/hr IVPB Q8H-IV [facility]; Protocol Last Admin: 06/02/18 09:44 Dose: 100 mls/hr Insulin Aspart (Novolog Vial Sliding Scale -) 1 vial SQ ACHS [facility]; Protocol Last Admin: 06/02/18 11:31 Dose: 8 units Tamsulosin HCl (Flomax -) 0.4 mg PO DAILY@0830 [facility] Last Admin: 06/02/18 08:33 Dose: 0.4 mg - Objective Vital Signs: Vital Signs Temperature 97.7 F 06/02/18 14:48 Pulse Rate 87 06/02/18 14:02 Respiratory Rate 20 06/02/18 14:02 Blood Pressure 128/74 06/02/18 14:02 O2 Sat by Pulse Oximetry (%) 95 06/02/18 09:00 Constitutional: Yes: No Distress HENT: Yes: Atraumatic Neck: Yes: Supple Cardiovascular: Yes: Regular Rate and Rhythm Respiratory: Yes: CTA Bilaterally Gastrointestinal: Yes: Normal Bowel Sounds Extremities: Yes: WNL Edema: No Peripheral Pulses WNL: Yes Neurological: Yes: Alert, Oriented ...Motor Strength: WNL Labs: CBC, BMP 06/01/18 07:00 06/01/18 07:00 INR, PTT INR 1.12 (0.83-1.09) H 05/29/18 12:30 Problem List - Problems (1) Pneumonia Assessment/Plan: iv abx cxs sent id consult Code(s): J18.9 - PNEUMONIA, UNSPECIFIED ORGANISM Qualifiers: Pneumonia type: due to unspecified organism Laterality: left Lung location: lower lobe of lung Qualified Code(s): J18.1 - Lobar pneumonia, unspecified organism (2) Urinary retention due to benign prostatic hyperplasia Assessment/Plan: on flomax now merino in place Code(s): N40.1 - BENIGN PROSTATIC HYPERPLASIA WITH LOWER URINARY TRACT SYMP; R33.8 - OTHER RETENTION OF URINE
[2018-06-02] MEDS ORDERED: INSULIN (NOVOLOG) ASPART 100 UNITS/ML 10ML VIAL ONE (17:12)
[2018-06-03] MEDS ORDERED: PIPERACILLIN/TAZOBACTAM 3.375 GM VIAL IVPB ONE ×2 (00:47→11:02)
[2018-06-03] MEDS ORDERED: DEXTROSE 5%-WATER - 50 ML IVPB ONE ×2 (00:48→11:02)
[2018-06-03] MEDS: PIPERACILLIN/TAZOB 3.375 GM 3.375 GM in DEXTROSE 5%-WATER - 50 ML IVPB SCH ×2 (01:56→11:06)
[2018-06-03] MEDS: INSULIN SLIDING SCALE (NOVOLOG) 1 VIAL SQ SCH ×4 (06:04→22:20)
[2018-06-03] MEDS: HEPARIN NA (PORCINE) 5,000 UNITS/ML 1ML VIAL SQ SCH ×3 (06:04→22:18)
[2018-06-03] MEDS ORDERED: INSULIN (NOVOLOG) ASPART 100 UNITS/ML 10ML VIAL ONE ×2 (06:25→11:59)
[2018-06-03] MEDS: TAMSULOSIN HCL 0.4 MG CAP PO SCH (08:30)
--- NOTE | 2018-06-03 15:33 | PN ---
Progress Note, Physician History of Present Illness: stable feels much better weakness renal fn has improved - Current Medication List Current Medications: Active Medications Acetaminophen (Tylenol -) 650 mg PO Q6H PRN PRN Reason: FEVER Heparin Sodium (Porcine) (Heparin -) 5,000 unit SQ TID [facility] Last Admin: 06/03/18 15:17 Dose: 5,000 unit Piperacillin Sod/Tazobactam (Sod 3.375 gm/ Dextrose) 50 mls @ 100 mls/hr IVPB Q8H-IV [facility]LE; Protocol Last Admin: 06/03/18 11:06 Dose: 100 mls/hr Insulin Aspart (Novolog Vial Sliding Scale -) 1 vial SQ ACHS [facility]; Protocol Last Admin: 06/03/18 12:13 Dose: 6 units Tamsulosin HCl (Flomax -) 0.4 mg PO DAILY@0830 [facility] Last Admin: 06/03/18 08:30 Dose: 0.4 mg - Objective Vital Signs: Vital Signs Temperature 97.5 F L 06/03/18 10:00 Pulse Rate 89 06/03/18 10:00 Respiratory Rate 20 06/03/18 10:00 Blood Pressure 133/80 06/03/18 10:00 O2 Sat by Pulse Oximetry (%) 94 L 06/02/18 21:00 Constitutional: Yes: No Distress, Calm Cardiovascular: Yes: Regular Rate and Rhythm Respiratory: Yes: Regular, CTA Bilaterally Gastrointestinal: Yes: Normal Bowel Sounds, Soft Genitourinary: Yes: Freeman Present Musculoskeletal: Yes: WNL Extremities: Yes: WNL Neurological: Yes: Alert, Oriented Psychiatric: Yes: Alert, Oriented Labs: CBC, BMP 06/01/18 07:00 06/01/18 07:00 INR, PTT INR 1.12 (0.83-1.09) H 05/29/18 12:30 Assessment/Plan ARF Resolving Hyperglycemia / Admitted for suspected DKA LLL PNA S/P Fall Atelectasis plan will change abx to augmentin incentive terrie rest as per the team patient improving
--- NOTE | 2018-06-03 16:30 | PN ---
Progress Note, Physician History of Present Illness: doing well - Current Medication List Current Medications: Active Medications Acetaminophen (Tylenol -) 650 mg PO Q6H PRN PRN Reason: FEVER Amoxicillin/Clavulanate Potassium (Augmentin - 875mg Tablet) 1 tab PO BID@0800, 1730 [facility] Heparin Sodium (Porcine) (Heparin -) 5,000 unit SQ TID [facility] Last Admin: 06/03/18 15:17 Dose: 5,000 unit Insulin Aspart (Novolog Vial Sliding Scale -) 1 vial SQ ACHS [facility]; Protocol Last Admin: 06/03/18 12:13 Dose: 6 units Tamsulosin HCl (Flomax -) 0.4 mg PO DAILY@0830 [facility] Last Admin: 06/03/18 08:30 Dose: 0.4 mg - Objective Vital Signs: Vital Signs Temperature 98.1 F 06/03/18 14:37 Pulse Rate 78 06/03/18 14:37 Respiratory Rate 18 06/03/18 14:37 Blood Pressure 136/79 06/03/18 14:37 O2 Sat by Pulse Oximetry (%) 94 L 06/03/18 09:00 Constitutional: Yes: No Distress HENT: Yes: Atraumatic Neck: Yes: Supple Cardiovascular: Yes: Regular Rate and Rhythm Respiratory: Yes: CTA Bilaterally Gastrointestinal: Yes: Normal Bowel Sounds Extremities: Yes: WNL Edema: No Peripheral Pulses WNL: Yes Neurological: Yes: Alert, Oriented Labs: CBC, BMP 06/01/18 07:00 06/01/18 07:00 INR, PTT INR 1.12 (0.83-1.09) H 05/29/18 12:30 Problem List - Problems (1) Pneumonia Assessment/Plan: on po abx stable Code(s): J18.9 - PNEUMONIA, UNSPECIFIED ORGANISM Qualifiers: Pneumonia type: due to unspecified organism Laterality: left Lung location: lower lobe of lung Qualified Code(s): J18.1 - Lobar pneumonia, unspecified organism (2) Urinary retention due to benign prostatic hyperplasia Assessment/Plan: kirill merino on flomax trial of voiding Code(s): N40.1 - BENIGN PROSTATIC HYPERPLASIA WITH LOWER URINARY TRACT SYMP; R33.8 - OTHER RETENTION OF URINE
[2018-06-03] MEDS: AMOX TR/POT CLAV 875MG/125MG TABLETS (FP) PO SCH (17:10)
[2018-06-04] MEDS: INSULIN SLIDING SCALE (NOVOLOG) 1 VIAL SQ SCH ×4 (06:32→21:58)
[2018-06-04] MEDS: HEPARIN NA (PORCINE) 5,000 UNITS/ML 1ML VIAL SQ SCH ×3 (06:32→21:58)
[2018-06-04] MEDS: AMOX TR/POT CLAV 875MG/125MG TABLETS (FP) PO SCH ×2 (09:25→17:13)
[2018-06-04] MEDS: TAMSULOSIN HCL 0.4 MG CAP PO SCH (09:25)
--- NOTE | 2018-06-04 10:00 | PN ---
Progress Note, Physician History of Present Illness: patient doing much better urine cx noted still weak but feels better - Current Medication List Current Medications: Active Medications Acetaminophen (Tylenol -) 650 mg PO Q6H PRN PRN Reason: FEVER Amoxicillin/Clavulanate Potassium (Augmentin - 875mg Tablet) 1 tab PO BID@0800, 1730 [facility] Last Admin: 06/04/18 09:25 Dose: 1 tab Heparin Sodium (Porcine) (Heparin -) 5,000 unit SQ TID [facility] Last Admin: 06/04/18 06:32 Dose: 5,000 unit Insulin Aspart (Novolog Vial Sliding Scale -) 1 vial SQ ACHS [facility]; Protocol Last Admin: 06/04/18 06:32 Dose: 6 units Tamsulosin HCl (Flomax -) 0.4 mg PO DAILY@0830 [facility] Last Admin: 06/04/18 09:25 Dose: 0.4 mg - Objective Vital Signs: Vital Signs Temperature 97.7 F 06/04/18 09:20 Pulse Rate 110 H 06/04/18 09:20 Respiratory Rate 18 06/04/18 09:20 Blood Pressure 121/74 06/04/18 09:20 O2 Sat by Pulse Oximetry (%) 93 L 06/03/18 21:00 Constitutional: Yes: No Distress, Calm Cardiovascular: Yes: Regular Rate and Rhythm Respiratory: Yes: Regular, Poor Air Entry Gastrointestinal: Yes: Normal Bowel Sounds, Soft Musculoskeletal: Yes: WNL Extremities: Yes: WNL Neurological: Yes: Alert, Oriented Psychiatric: Yes: Alert, Oriented Labs: CBC, BMP 06/01/18 07:00 06/01/18 07:00 INR, PTT INR 1.12 (0.83-1.09) H 05/29/18 12:30 Assessment/Plan ARF Resolving Hyperglycemia / Admitted for suspected DKA LLL PNA S/P Fall Atelectasis plan augmentin incentive terrie rest as per the team patient improving
[2018-06-04] MEDS ORDERED: INSULIN (NOVOLOG) ASPART 100 UNITS/ML 10ML VIAL ONE (11:58)
--- NOTE | 2018-06-04 16:00 | PN ---
Progress Note, Physician History of Present Illness: passing urine well - Current Medication List Current Medications: Active Medications Acetaminophen (Tylenol -) 650 mg PO Q6H PRN PRN Reason: FEVER Amoxicillin/Clavulanate Potassium (Augmentin - 875mg Tablet) 1 tab PO BID@0800, 1730 [facility] Last Admin: 06/04/18 09:25 Dose: 1 tab Heparin Sodium (Porcine) (Heparin -) 5,000 unit SQ TID [facility] Last Admin: 06/04/18 15:26 Dose: 5,000 unit Insulin Aspart (Novolog Vial Sliding Scale -) 1 vial SQ ACHS [facility]; Protocol Last Admin: 06/04/18 12:25 Dose: 6 units Tamsulosin HCl (Flomax -) 0.4 mg PO DAILY@0830 [facility] Last Admin: 06/04/18 09:25 Dose: 0.4 mg - Objective Vital Signs: Vital Signs Temperature 97.4 F L 06/04/18 14:31 Pulse Rate 104 H 06/04/18 14:31 Respiratory Rate 17 06/04/18 14:31 Blood Pressure 112/71 06/04/18 14:31 O2 Sat by Pulse Oximetry (%) 93 L 06/04/18 09:00 Constitutional: Yes: No Distress HENT: Yes: Atraumatic Neck: Yes: Supple Cardiovascular: Yes: Regular Rate and Rhythm Respiratory: Yes: CTA Bilaterally Gastrointestinal: Yes: Normal Bowel Sounds Genitourinary: Yes: Other (bph) Extremities: Yes: WNL Edema: No Peripheral Pulses WNL: Yes Neurological: Yes: Alert, Oriented Labs: CBC, BMP 06/01/18 07:00 06/01/18 07:00 INR, PTT INR 1.12 (0.83-1.09) H 05/29/18 12:30 Problem List - Problems (1) Pneumonia Assessment/Plan: on po abx stable Code(s): J18.9 - PNEUMONIA, UNSPECIFIED ORGANISM Qualifiers: Pneumonia type: due to unspecified organism Laterality: left Lung location: lower lobe of lung Qualified Code(s): J18.1 - Lobar pneumonia, unspecified organism (2) Urinary retention due to benign prostatic hyperplasia Assessment/Plan: on flomax voiding well Code(s): N40.1 - BENIGN PROSTATIC HYPERPLASIA WITH LOWER URINARY TRACT SYMP; R33.8 - OTHER RETENTION OF URINE
[2018-06-05] MEDS: INSULIN SLIDING SCALE (NOVOLOG) 1 VIAL SQ SCH ×3 (07:01→16:43)
[2018-06-05] MEDS: HEPARIN NA (PORCINE) 5,000 UNITS/ML 1ML VIAL SQ SCH ×2 (07:03→15:21)
[2018-06-05 07:23] VITALS: TEMP 97.5
[2018-06-05 08:20] LABS: BASO % 0.7 % (0-2.0); EOS % 2.9 % (0-4.5); HEMATOCRIT 40.5 % (35.4-49); HEMOGLOBIN 13.1 GM/dL (11.7-16.9); MCH 27.9 pg (25.7-33.7); MCHC 32.4 g/dl (32.0-35.9); MEAN CELL VOLUME 85.9 fl (80-96); MEAN PLT VOLUME 9.3 fl (7.5-11.1); MONO % 9.2 % (3.8-10.2); NEUT % 75.2 % (42.8-82.8); PLATELET COUNT 375 K/MM3 (134-434); RBC 4.71 M/mm3 (4.00-5.60); WHITE BLOOD COUNT 12.5 K/mm3 (4.0-10.0)
[2018-06-05] MEDS: AMOX TR/POT CLAV 875MG/125MG TABLETS (FP) PO SCH ×2 (08:33→16:31)
[2018-06-05] MEDS: TAMSULOSIN HCL 0.4 MG CAP PO SCH (08:33)
[2018-06-05 09:03] LABS: ALBUMIN 2.4 g/dl (3.4-5.0); ALK PHOS 130 U/L (45-117); ANION GAP 9 MMOL/L (8-16); BILIRUBIN,TOTAL 0.7 mg/dL (0.2-1); BLOOD UREA NITROGEN 22 mg/dL (7-18); CALCIUM 8.5 mg/dL (8.5-10.1); CHLORIDE 102 mmol/L (98-107); CO2 24 mmol/L (21-32); CREATININE 0.9 mg/dL (0.55-1.3); GLUCOSE,RANDOM 238 mg/dL (74-106); POTASSIUM 4.4 mmol/L (3.5-5.1); SGOT/AST 35 U/L (15-37); SGPT/ALT 38 U/L (13-61); SODIUM 136 mmol/L (136-145); TOT PROT 5.6 g/dl (6.4-8.2)
--- NOTE | 2018-06-05 13:51 | PN ---
Progress Note, Physician History of Present Illness: stable no new issues patient doing well - Current Medication List Current Medications: Active Medications Acetaminophen (Tylenol -) 650 mg PO Q6H PRN PRN Reason: FEVER Amoxicillin/Clavulanate Potassium (Augmentin - 875mg Tablet) 1 tab PO BID@0800, 1730 [facility] Last Admin: 06/05/18 08:33 Dose: 1 tab Heparin Sodium (Porcine) (Heparin -) 5,000 unit SQ TID [facility] Last Admin: 06/05/18 07:03 Dose: 5,000 unit Insulin Aspart (Novolog Vial Sliding Scale -) 1 vial SQ ACHS [facility]; Protocol Last Admin: 06/05/18 11:20 Dose: 8 units Tamsulosin HCl (Flomax -) 0.4 mg PO DAILY@0830 [facility] Last Admin: 06/05/18 08:33 Dose: 0.4 mg - Objective Vital Signs: Vital Signs Temperature 97.5 F L 06/05/18 06:00 Pulse Rate 78 06/05/18 06:00 Respiratory Rate 20 06/05/18 06:00 Blood Pressure 127/84 06/05/18 06:00 O2 Sat by Pulse Oximetry (%) 95 06/04/18 21:00 Constitutional: Yes: No Distress, Calm Cardiovascular: Yes: Regular Rate and Rhythm Respiratory: Yes: Regular, CTA Bilaterally Gastrointestinal: Yes: Normal Bowel Sounds, Soft Musculoskeletal: Yes: WNL Extremities: Yes: WNL Neurological: Yes: Alert, Oriented Psychiatric: Yes: Alert, Oriented Labs: CBC, BMP 06/05/18 06:00 06/05/18 06:30 INR, PTT INR 1.12 (0.83-1.09) H 05/29/18 12:30 Assessment/Plan ARF Resolving Hyperglycemia / Admitted for suspected DKA LLL PNA S/P Fall Atelectasis plan augmentin incentive terrie rest as per the team patient improving
[2018-06-05 14:51] VITALS: BP 117/70; PULSE 90
[2018-06-05 15:23] LABS: ANISOCYTOSIS 0; MACROCYTOSIS 0; PLATELET ESTIMATE NORMAL
--- NOTE | 2018-06-05 15:30 | DS ---
Physical Examination Vital Signs: Vital Signs Temperature 97.5 F L 06/05/18 14:50 Pulse Rate 90 06/05/18 14:50 Respiratory Rate 18 06/05/18 14:50 Blood Pressure 117/70 06/05/18 14:50 O2 Sat by Pulse Oximetry (%) 95 06/04/18 21:00 Constitutional: Yes: No Distress HENT: Yes: Atraumatic Neck: Yes: Supple Cardiovascular: Yes: Regular Rate and Rhythm Respiratory: Yes: CTA Bilaterally Gastrointestinal: Yes: Normal Bowel Sounds Extremities: Yes: WNL Edema: No Peripheral Pulses WNL: Yes Neurological: Yes: Alert, Oriented ...Motor Strength: WNL Labs: CBC, BMP 06/05/18 06:00 06/05/18 06:30 Discharge Summary Reason For Visit: PNEUMONIA Current Active Problems Pneumonia (Acute) Urinary retention due to benign prostatic hyperplasia (Acute) Condition: Stable - Instructions Referrals: Jack Kay [Primary Care Provider] - - Home Medications Comprehensive Discharge Medication List: Ambulatory Orders metFORMIN HCL [Metformin HCl] 500 mg PO TID 05/29/18 Atorvastatin Calcium [Lipitor] 20 mg PO DAILY 05/31/18 Glipizide [Glipizide ER] 10 mg PO BID 05/31/18 Lisinopril/Hydrochlorothiazide [Lisinopril-Hctz 20-25 mg Tab] 1 each PO DAILY Metoprolol Succinate [Toprol Xl] 25 mg PO DAILY 05/31/18 Amox-Tr/K Cl [Augmentin 875-125mg Tablet -] 1 tab PO BID@0800,1730 #14 tablet Tamsulosin HCl [Flomax -] 0.4 mg PO DAILY@0830 #30 cap.er.24h 06/03/18 ut home
== END 2018-06-05 17:06 | disposition home health service (06) | DRG 193 ==
LOC: JER 11:30 → JERBED 14:22 → JICU 05-30 03:12 → J5S 05-30 16:49
PROVIDERS: ADMIT Internal Medicine; ATTEND Internal Medicine
PROC: 0T9B70Z Drainage of Bladder with Drainage Device, Via Natural or Artificial Opening (ICD-10-PCS; principal; 2018-05-31)
DX: J18.9 Pneumonia, unspecified organism (principal); E11.10 Type 2 diabetes mellitus with ketoacidosis without coma; N17.9 Acute kidney failure, unspecified; E87.1 Hypo-osmolality and hyponatremia; J98.11 Atelectasis; Z79.84 Long term (current) use of oral hypoglycemic drugs; I25.10 Atherosclerotic heart disease of native coronary artery without angina pectoris; R33.9 Retention of urine, unspecified; N40.1 Benign prostatic hyperplasia with lower urinary tract symptoms; Z95.5 Presence of coronary angioplasty implant and graft; E87.6 Hypokalemia; R33.8 Other retention of urine; G30.9 Alzheimer's disease, unspecified; F02.80 Dementia in other diseases classified elsewhere, unspecified severity, without behavioral disturbance, psychotic disturbance, mood disturbance, and anxiety; N39.41 Urge incontinence; R35.0 Frequency of micturition
CPT/HCPCS: 36415; 36600; 70450-TC; 71045-TC-FY; 72125-TC; 80048; 80053; 81003; 81015; 82009; 82550; 82553; 82803; 82962; 83036; 83735; 84100; 84484; 85025; 85027; 85610; 86850; 86900; 86901; 87040; 87070; 87086; 87186; 87205; 87899; 90670; 93005; 93010; 93306-TC; 93880-TC; 94010; 97116-GP; 97161-GP; 99285-25; J1644; J7030

== ENCOUNTER 2018-06-13 12:37 | Inpatient (IN) | payer OTHER, MEDICARE ==
--- NOTE | 2018-06-13 13:34 | PDOC ---
History of Present Illness - General Chief Complaint: Blood Sugar Problem Stated Complaint: HIGH BLOOD SUGAR Time Seen by Provider: 06/13/18 12:46 - History of Present Illness Initial Comments: Gian Hercules is a 78yo man with a PMH of DM, CAD, recent admission for pneumonia and hyperglycemia who presents today complaining of severe constipation, urinary incontinence, and a rash to his scrotum and penis. He additionally reports that when his home nurse came today, his blood glucose was 400 prior to taking his medication. It came down to 350 when EMS arrived to his house. Mr Hercules states that he was discharged from the hospital aobut a week ago, and he felt well for the first few days. He does note that he was having a lot of urinary incontinence. He believes that his bladder is very full but is unable to urinate normally; he has been having a small amount of urine released without trying throughout the day and has needed to wear a diaper. He believes that his rash is due to having a wet diaper much of the day. He has not noticed that the rash is painful, bleeding, or draining any fluid. Additionally, he states that he has not had a bowel movement for 4 days despite taking colace and Miralax at home. He says that he has had significant abdominal pain that has kept him awake at night for several days. Because of the fatigue, he is not sure whether he has been taking his medications at home. He has also not been able to eat much for several days. Mr Hercules does report that he sometimes had a small amount of incontinence previously, but he was also able to urinate without difficulty. He is not aware of any underlying prostate problems. He does report that he had a catheter while in the hospital recently, and he felt that was helpful and would like one placed today. He denies any nausea, vomiting, fevers/chills, back pain, neurological deficits, or other systemic complaints. Past History - Past Medical History Allergies/Adverse Reactions: Allergies Allergy/AdvReac Type Severity Reaction Status Date / Time No Known Allergies Allergy Verified 06/13/18 12:52 Home Medications: Ambulatory Orders metFORMIN HCL [Metformin HCl] 500 mg PO TID 05/29/18 Atorvastatin Calcium [Lipitor] 20 mg PO DAILY 05/31/18 Glipizide [Glipizide ER] 10 mg PO BID 05/31/18 Lisinopril/Hydrochlorothiazide [Lisinopril-Hctz 20-25 mg Tab] 1 each PO DAILY Metoprolol Succinate [Toprol Xl] 25 mg PO DAILY 05/31/18 Amox-Tr/K Cl [Augmentin 875-125mg Tablet -] 1 tab PO BID@0800,1730 #14 tablet Tamsulosin HCl [Flomax -] 0.4 mg PO DAILY@0830 #30 cap.er.24h 06/03/18 Cardiac Disorders: Yes (CAD, stents) COPD: No Diabetes: Yes Disorders: Yes (BPH) - Suicide/Smoking/Psychosocial Hx Smoking History: Never smoked Hx Alcohol Use: No Drug/Substance Use Hx: No Substance Use Type: None Hx Substance Use Treatment: No Review of Systems - Review of Systems Comments:: General: No fevers, no chills, no weight or appetite change, no malaise HEENT: No changes in vision, no changes in hearing, no congestion, no sore throat CV: No chest pain, no palpitations, no LE edema Pulm: No SOB, no cough, no wheezing GI: No nausea or vomiting, no melena. +Constipation, +abdominal complaints : No frequency, no urgency, no dysuria. +Incontinence Musc: No back pain, no joint swelling, no recent injury Skin: No lesions, no erythema. +rash (scrotum and penis) Endo: No excessive thirst, no heat/cold intolerance Heme: No unusual bruising or bleeding, no swollen glands Neuro: No syncope, no numbness/tingling, no focal weakness Vasc: No claudication Psych: No recent change in mood, no SI or HI *Physical Exam - Vital Signs Last Vital Signs Temp Pulse Resp BP Pulse Ox 97.1 F L 105 H 18 132/90 99 06/13/18 12:52 06/13/18 12:52 06/13/18 12:52 06/13/18 12:52 06/13/18 12:52 - Physical Exam Comments: General: Comfortable, no acute distress HEENT: PERRL, EOMI, MMM, voice normal, normal neck ROM, no LAD. Poor dentition. Cards: RRR, no murmur appreciated Pulm: Comfortable on room air, clear to auscultation bilaterally Abd: Upper abdomen soft, nontender, nondistended. Suprapubic fullness, firm, mildly TTP. Left groin with 1.5 x 3cm lesion, white base, no surrounding erythema or edema, nontender to palpation. : No CVA tenderness. Skin on scrotum and penis raw and red. No bleeding or notable drainage. Pal colored crust over majority of rash. Rectal: Perianal skin erythematous but without breaks or lesions. Normal tone. Significantly enlarged prostate, firm, smooth, no focal enlargement noted. Ext: Atraumatic. No LE edema. ROM intact. Strength 5/5 and equal bilaterally Vasc: Extremities WWP. Palpable radial and pedal pulses bilaterally Skin: Normal color, no rashes or lesions Neuro: A&Ox3, CN grossly intact, normal speech, sensation to light tough intact in face, BUE and BLE. Strength 5/5 and equal bilaterally at shoulders, elbows, wrists, hands, feet, ankles, knees and hips. Psych: Mood appropriate to situation 1 ED Treatment Course - LABORATORY CBC & Chemistry Diagram: 06/13/18 13:15 06/13/18 16:40 - RADIOLOGY Radiology Studies Ordered: Category Date Time Status CHEST PA & LAT [RAD] Stat Radiology 06/13/18 13:20 Ordered Medical Decision Making - Medical Decision Making 06/13/18 13:36 Gian Hercules is a 78yo man with a PMH of DM, CAD, recent admission for pneumonia and hyperglycemia who presents complaining of severe constipation, urinary retention with incontinence, rash to his scrotum and penis, and hyperglycemia today. - Urinary retention and constipation are likely related to enlarged prostate - Bedside US of bladder showed significant distention. No tu hydronephrosis on renal US, but poor visualization of kidneys - Patient unable to void into urinal. Freeman catheter placed with immediate output of 1.5L clear yellow urine with continued brisk drainage. - Neurological exam reassuring, no concern for cauda equina syndrome as a cause of retention/constipation - WBC elevated to 21. May be due to infected scrotal rash, R groin lesion, or potentially UTI - Hyperglycemia at home may be secondary to infection or non-compliance as pt does not remember whether he took his medications at home - Will likely need admission given infection, hyperglycemia - CT abdomen/pelvis with contrast ordered to r/o causes of urinary obstruction 06/13/18 14:46 - CMP notable for Cr elevated to 1.7 from baseline of 0.9 on admisison - Meets sepsis criteria - tachycardic to 105, leukocytosis to 21.5, suspected source of UTI v infected perineal wound - Cultures, lactate ordered. Broad spectrum antibiotics given. IVF to be given prior to CT. Elevated Cr most likely due to urinary obstruction, but will recheck following fluids to ensure that it is trending down. - CT to be evaluate for subcutaneous gas for early presentation of nec fasc, infected kidney stone 06/13/18 16:43 - CT returned with markedly enlarged prostate, mild b/l hydronephrosis, cholelithiasis w/o sign of infection, moderate stool burden. No significant scrotal infection. - UA negative - Repeat BMP ordered to trend Cr after 2L IVF given - Will admit for sepsis secondary to suspected soft tissue infection. Page sent to Dr Sahu for admission. Will admit to Dr Arriaga. Seen and discussed with Dr Durán. Imelda Guillory PGY1 *DC/Admit/Observation/Transfer Diagnosis at time of Disposition: Urinary retention due to benign prostatic hyperplasia Sepsis Qualifiers: Sepsis type: sepsis due to unspecified organism Qualified Code(s): A41.9 - Sepsis, unspecified organism - Discharge Dispostion Condition at time of disposition: Stable Decision to Admit order: Yes - Referrals - Patient Instructions - Post Discharge Activity
[2018-06-13 13:50] LABS: BASO % 0.4 % (0-2.0); EOS % 0.1 % (0-4.5); HEMATOCRIT 46.4 % (35.4-49); HEMOGLOBIN 15.1 GM/dL (11.7-16.9); LYMPH % 4.9 % (8-40); MCH 28.4 pg (25.7-33.7); MCHC 32.4 g/dl (32.0-35.9); MEAN CELL VOLUME 87.7 fl (80-96); MEAN PLT VOLUME 9.5 fl (7.5-11.1); MONO % 6.4 % (3.8-10.2); NEUT % 88.2 % (42.8-82.8); PLATELET COUNT 368 K/MM3 (134-434); RDW 15.9 % (11.9-15.9); WHITE BLOOD COUNT 21.5 K/mm3 (4.0-10.0)
[2018-06-13 14:20] LABS: ALBUMIN 3.7 g/dl (3.4-5.0); ALK PHOS 128 U/L (45-117); ANION GAP 17 MMOL/L (8-16); BILIRUBIN,TOTAL 1.3 mg/dL (0.2-1); BLOOD UREA NITROGEN 53 mg/dL (7-18); CALCIUM 9.2 mg/dL (8.5-10.1); CHLORIDE 92 mmol/L (98-107); CO2 21 mmol/L (21-32); CREATININE 1.7 mg/dL (0.55-1.3); SGOT/AST 24 U/L (15-37); SGPT/ALT 31 U/L (13-61); SODIUM 130 mmol/L (136-145); TOT PROT 7.6 g/dl (6.4-8.2)
[2018-06-13 14:22] LABS: GLUCOSE,RANDOM 352 mg/dL (74-106)
[2018-06-13] MEDS ORDERED: SODIUM CHLORIDE 0.9% 1000 ML INFUS.BAG IV STA (14:27)
[2018-06-13] MEDS ORDERED: VANCOMYCIN 1,000 MG in DEXTROSE 5%-WATER - 250 ML IVPB ONE (14:28)
[2018-06-13] MEDS ORDERED: PIPERACILLIN/TAZOB 2.25 GM 2.25 GM in DEXTROSE 5%-WATER - 50 ML IVPB ONE (14:30)
--- NOTE | 2018-06-13 14:32 | PDOC ---
Attending Attestation - HPI HPI: 06/13/18 14:36 CC: Constipation, urinary incontinence, and a rash to his scrotum and penis. HPI: The patient is a 78 year old male, with a significant past medical history of DM , CAD, recent admission for pneumonia and hyperglycemia, who presents to the emergency department with, constipation, urinary incontinence, and a rash to his scrotum and penis. Patient notes urinary retention, elaborating that he has only been able to release a small amount of urine throughout the day with associated abdominal pain. Patient endorses a rash to his scrotum and penis which he believes is due to wet diapers. Patient also endorses 4 days of constipation which he has taken colace and Miralax, without relief. He notes that he is unaware if he has been taking his at home medications. When his home nurse tested his blood sugar she reports a reading of 400. He denies any recent fevers, chills, headache or dizziness. He denies any recent nausea or vomit. He denies any recent chest pain or shortness of breath. Allergies: NKDA Primary Care Physician: Dr. Kay - Physicial Exam PE: 06/13/18 14:36 Exam: Vitals: Triage Vital signs reviewed General Appearance: no acute distress, well nourished well developed, Head: Atraumatic, normocephalic Nose: No nasal congestion Neck: Supple;No Nuchal rigidity Chest Wall: Nontender Cardiac: Regular rate and rhythm, no murmurs, no rubs, no gallops, Lungs: Clear to auscultation bilateral, good air movement bilaterally, Abdomen: Soft, nondistended, normal bowel sounds, nontender to palpation Rectal: Exam deferred +Genitalia: Red irritation and skin break down to the genitalia. Extremities: Full range of motion to all extremities, no cyanosis, clubbing, or edema +Skin: 2cm pressure ulcer to the right inguinal area. Neuro: AOX3; Cranial Nerves 2-12 grossly intact, Strength intact to all extremities, Sensation intact to all extremities Psych: normal mood, normal affect - Medical Decision Making 06/13/18 14:37 78 year old male with history of DM, CAD, recent admission for pneumonia and hyperglycemia presents to the ED with constipation, urinary incontinence, and a rash to his scrotum and penis. Plan: CBC CMP CK Lactic Acid CT abdomen and pelvis Fluids Vancomycin Zosyn Blood/urine cultures Chest x-ray Reassess <Artemio Rosa - Last Filed: 06/13/18 14:36> - Resident Resident Name: [email or web address] - ED Attending Attestation I have performed the following: I have examined & evaluated the patient, The case was reviewed & discussed with the resident, I agree w/resident's findings & plan, Exceptions are as noted - Medical Decision Making Patient presented with acute urinary retention likely fungal infection to scrotum within normal neurologic examination Bedside ultrasound performed patient unable to urinate status post placement of Freeman catheter 2 L urine drained Laboratory analysis notable for leukocytosis a CAT scan was obtained noncontrast given the patient's acute renal insufficiency and elevated GFR. Patient was treated with broad-spectrum antibiotics given his tachycardia leukocytosis and possible source of infection No acute findings were noted on the CAT scan. At this time my suspicion for infection is lower his leukocytosis may be reactive However given this leukocytosis urinary retention we'll admit to hospitalist for further management <Chandrakant Durán - Last Filed: 06/14/18 13:30> Attestations - Attestations 06/13/18 14:37 Documentation prepared by Artemio Rosa, acting as medical reviewer for Chandrakant Durán MD. <Artemio Rosa - Last Filed: 06/13/18 14:36>
[2018-06-13] MEDS ORDERED: PIPERACILLIN/TAZOB 2.25 GM 2.25 GM/50 ML BAG IVPB ONE (14:36)
[2018-06-13 14:40] LABS: ACANTHOCYTES 0; ANISOCYTOSIS 0; HELMET CELLS 0; HOWELL-JOLLY BODIES 0; MACROCYTOSIS 0; OVALOCYTE 0; PLATELET ESTIMATE NORMAL; ROULEAU 0; SICKELED CELLS 0; TARGET CELLS 0; TEAR DROP CELLS 0; TOXIC GRANULATION 0
[2018-06-13 15:06] LABS: URINE APPEARANCE CLEAR; URINE BILIRUBIN NEGATIVE (<2.0 mg/dL); URINE COLOR LTYELLOW; URINE GLUCOSE (UA) 3+ (NEGATIVE); URINE KETONE TRACE (NEGATIVE); URINE LEUK ESTERASE NEGATIVE (NEGATIVE); URINE NITRITE NEGATIVE (NEGATIVE); URINE PROTEIN NEGATIVE (NEGATIVE); URINE UROBILINOGEN NEGATIVE mg/dL (0.2-1.0)
[2018-06-13 15:22] LABS: URINE MUCUS RARE
[2018-06-13] MEDS ORDERED: VANCOMYCIN 1 GRAM (PRE-DOCKED) 1,000 MG/250 ML BAG IVPB ONE (15:22)
[2018-06-13 17:47] LABS: ANION GAP 12 MMOL/L (8-16); BLOOD UREA NITROGEN 46 mg/dL (7-18); CALCIUM 8.1 mg/dL (8.5-10.1); CHLORIDE 103 mmol/L (98-107); CO2 23 mmol/L (21-32); CREATININE 1.2 mg/dL (0.55-1.3); GLUCOSE,RANDOM 229 mg/dL (74-106); POTASSIUM 3.9 mmol/L (3.5-5.1); SODIUM 138 mmol/L (136-145)
--- NOTE | 2018-06-13 18:41 | HP ---
CHIEF COMPLAINT: high blood sugars. PCP: HISTORY OF PRESENT ILLNESS: 78 yo M with a PMHx of DM II, CAD,HTN and BPH recent admission for pneumonia and hyperglycemia who presents today complaining of severe constipation, urinary incontinence, and a rash to his scrotum and penis. He additionally reports that when his home nurse came today, his blood glucose was 400 prior to taking his medication. He states that he was doing well initially after discharge from hospital but started to experience urinary incontinence. He stated to wear and diaper which he changed regularly but developed a rash in irritation in genital region. This is accompanied by abdominal pain which keeps him up at night. Denies CP, VEGA, SOB,palpitations, nausea , vomiting, fever or chills. ER course was notable for: (1)Elevated BG (2)CT A/P shows hydronephrosis and large prostate. (3) Recent Travel: PAST MEDICAL HISTORY: HTN , HLD, DM II, CAD, BPH PAST SURGICAL HISTORY: cardiac stents x2 Social History: Smoking: quit 20 yrs ago 40 pack yr history Alcohol:social Drugs: denies Family History: Mother (alzheimer) , Father( unkown) , Brother (schiztophrenia) Allergies No Known Allergies Allergy (Verified 06/13/18 12:52) HOME MEDICATIONS: Home Medications Medication Instructions Recorded metFORMIN HCL [Metformin HCl] 500 mg PO TID 05/29/18 Atorvastatin Calcium [Lipitor] 20 mg PO DAILY 05/31/18 Glipizide [Glipizide ER] 10 mg PO BID 05/31/18 Lisinopril/Hydrochlorothiazide 1 each PO DAILY 05/31/18 [Lisinopril-Hctz 20-25 mg Tab] Metoprolol Succinate [Toprol Xl] 25 mg PO DAILY 05/31/18 Amox-Tr/K Cl [Augmentin 875-125mg 1 tab PO BID@0800,1730 #14 tablet 06/03/18 Tablet -] Tamsulosin HCl [Flomax -] 0.4 mg PO DAILY@0830 #30 cap.er.24h 06/03/18 REVIEW OF SYSTEMS CONSTITUTIONAL: Absent: fever, chills, diaphoresis, generalized weakness, malaise, loss of appetite, weight change HEENT: Absent: rhinorrhea, nasal congestion, throat pain, throat swelling, difficulty swallowing, mouth swelling, ear pain, eye pain, visual changes CARDIOVASCULAR: Absent: chest pain, syncope, palpitations, irregular heart rate, lightheadedness , peripheral edema RESPIRATORY: Absent: cough, shortness of breath, dyspnea with exertion, orthopnea, wheezing, stridor, hemoptysis GASTROINTESTINAL: Absent: abdominal pain, abdominal distension, nausea, vomiting, diarrhea, constipation, melena, hematochezia GENITOURINARY: Absent: dysuria, frequency, urgency, hesitancy, hematuria, flank pain, genital pain MUSCULOSKELETAL: Absent: myalgia, arthralgia, joint swelling, back pain, neck pain SKIN: Absent: rash, itching, pallor HEMATOLOGIC/IMMUNOLOGIC: Absent: easy bleeding, easy bruising, lymphadenopathy, frequent infections ENDOCRINE: Absent: unexplained weight gain, unexplained weight loss, heat intolerance, cold intolerance NEUROLOGIC: Absent: headache, focal weakness or paresthesias, dizziness, unsteady gait, seizure, mental status changes, bladder or bowel incontinence PSYCHIATRIC: Absent: anxiety, depression, suicidal or homicidal ideation, hallucinations. PHYSICAL EXAMINATION Vital Signs - 24 hr 06/13/18 06/13/18 12:52 17:12 Temperature 97.1 F L 98.9 F Pulse Rate 105 H Pulse Rate [ 88 Apical] Respiratory 18 18 Rate Blood Pressure 132/90 Blood Pressure 114/66 [Right Arm] O2 Sat by Pulse 99 98 Oximetry (%) GENERAL: AAOx3, NAD HEAD: NCAT EYES: PERRLA, EOMI, sclera anicteric, conjunctiva clear. No lid lag. EARS, NOSE, THROAT: Moist mucous membranes. NECK:Supple without lymphadenopathy, JVD, or masses. LUNGS: CTAB. No wheezes, and no crackles. No accessory muscle use. HEART: Regular rate and rhythm, normal S1 and S2 without murmur, rub or gallop. ABDOMEN: Soft, nontender, not distended, normoactive bowel sounds, no guarding, no rebound, no masses. No hepatomegaly or splenomegaly. Rectal:Perianal skin erythematous but without breaks or lesions. Normal tone. Significantly enlarged prostate, firm, smooth, no focal enlargement noted. MUSCULOSKELETAL: Normal range of motion at all joints. No bony deformities or tenderness. No CVA tenderness. UPPER EXTREMITIES: 2+ pulses, warm, well-perfused. No cyanosis. No clubbing. No peripheral edema. LOWER EXTREMITIES: 2+ pulses, warm, well-perfused. No calf tenderness. No peripheral edema. NEUROLOGICAL: Cranial nerves II-XII intact. Normal speech. PSYCHIATRIC: Cooperative. Good eye contact. Appropriate mood and affect. Laboratory Results - last 24 hr 06/13/18 06/13/18 06/13/18 13:15 13:15 13:15 WBC 21.5 H RBC 5.30 Hgb 15.1 Hct 46.4 MCV 87.7 MCH 28.4 MCHC 32.4 RDW 15.9 Plt Count 368 MPV 9.5 Absolute Neuts (auto) 18.9 H Neutrophils % 88.2 H Neutrophils % (Manual) 90.0 H D Band Neutrophils % 1.0 Lymphocytes % 4.9 L D Lymphocytes % (Manual) 2.0 L D Monocytes % 6.4 Monocytes % (Manual) 3 L Eosinophils % 0.1 D Eosinophils % (Manual) 0.0 D Basophils % 0.4 Basophils % (Manual) 0.0 Myelocytes % (Man) 0 Promyelocytes % (Man) 0 Blast Cells % (Manual) 0 Nucleated RBC % 0 Metamyelocytes 0 D Hypochromia 0 Toxic Granulation 0 Dohle Bodies 0 Platelet Estimate Normal Polychromasia 0 Poikilocytosis 0 Basophilic Stippling 0 Anisocytosis 0 Microcytosis 0 Macrocytosis 0 Spherocytes 0 Sickle Cells 0 Target Cells 0 Tear Drop Cells 0 Ovalocytes 0 Stomatocytes 0 Helmet Cells 0 [place]-Bear Dance Bodies 0 [place] Rings 0 Jessica Cells 0 Acanthocytes (Spur) 0 Rouleaux 0 Fragmented RBCs 0 Schistocytes 0 Sodium 130 L Potassium 4.0 Chloride 92 L Carbon Dioxide 21 Anion Gap 17 H BUN 53 H Creatinine 1.7 H Creat Clearance w eGFR 39.28 Random Glucose 352 H* Lactic Acid Calcium 9.2 Total Bilirubin 1.3 H AST 24 ALT 31 Alkaline Phosphatase 128 H Creatine Kinase Total Protein 7.6 Albumin 3.7 Urine Color Ltyellow Urine Appearance Clear Urine pH 5.0 Ur Specific [place] 1.018 Urine Protein Negative Urine Glucose (UA) 3+ H Urine Ketones Trace H Urine Blood 2+ H Urine Nitrite Negative Urine Bilirubin Negative Urine Urobilinogen Negative Ur Leukocyte Esterase Negative Urine WBC (Auto) None Urine RBC (Auto) 32 Urine Mucus Rare 06/13/18 06/13/18 06/13/18 14:35 14:35 16:40 WBC RBC Hgb Hct MCV MCH MCHC RDW Plt Count MPV Absolute Neuts (auto) Neutrophils % Neutrophils % (Manual) Band Neutrophils % Lymphocytes % Lymphocytes % (Manual) Monocytes % Monocytes % (Manual) Eosinophils % Eosinophils % (Manual) Basophils % Basophils % (Manual) Myelocytes % (Man) Promyelocytes % (Man) Blast Cells % (Manual) Nucleated RBC % Metamyelocytes Hypochromia Toxic Granulation Dohle Bodies Platelet Estimate Polychromasia Poikilocytosis Basophilic Stippling Anisocytosis Microcytosis Macrocytosis Spherocytes Sickle Cells Target Cells Tear Drop Cells Ovalocytes Stomatocytes Helmet Cells Molina-Bear Dance Bodies [place] Rings Jessica Cells Acanthocytes (Spur) Rouleaux Fragmented RBCs Schistocytes Sodium 138 Potassium 3.9 Chloride 103 Carbon Dioxide 23 Anion Gap 12 BUN 46 H Creatinine 1.2 Creat Clearance w eGFR 58.71 Random Glucose 229 H Lactic Acid 1.7 Calcium 8.1 L Total Bilirubin AST ALT Alkaline Phosphatase Creatine Kinase 102 Total Protein Albumin Urine Color Urine Appearance Urine pH Ur Specific [place] Urine Protein Urine Glucose (UA) Urine Ketones Urine Blood Urine Nitrite Urine Bilirubin Urine Urobilinogen Ur Leukocyte Esterase Urine WBC (Auto) Urine RBC (Auto) Urine Mucus ASSESSMENT/PLAN: 78 yo M with a PMHx of DM II, CAD,HTN and BPH recent admission for pneumonia and hyperglycemia who presents today complaining of severe constipation, urinary incontinence, and a rash to his scrotum and penis. Admitted to med-surg for PEREZ secondary to obstructive uropathy. Problem List - Problem (1) Sepsis Assessment/Plan: * Admit to med-surg * ID consulted- completed course of Abx for PNA * Recieved one dose Vanco and Zosyn in ED * [place]-Cultured * UA was negative. * Lactic acid 1.7 on admission * IVF with NS @ 100ml/hr (2) DM type 2 (diabetes mellitus, type 2) Assessment/Plan: poorly controlled. * ADA diet * BGM ACHS * ISS ACHS (3) HTN (hypertension) Assessment/Plan: Continue home meds. * Hydrochlorothiazide (Hctz -) 25 mg PO DAILY * Lisinopril (Prinivil) 20 mg PO DAILY (4) CAD (coronary artery disease) Assessment/Plan: s/p stents x2 * Continue statin and BB (5) Urinary retention due to benign prostatic hyperplasia Assessment/Plan: * Freeman placed * Urology consulted. * monitor I/O's * increase Flomax daily. (6) PEREZ (acute kidney injury) Assessment/Plan: 2/[address] CT with hydronephrosis. -increase flomax to 0.8 -monitor i/o's -repeat BMP in AM -Freeman in place. Visit type - Emergency Visit Emergency Visit: Yes ED Registration Date: 06/13/18 Care time: The patient presented to the Emergency Department on the above date and was hospitalized for further evaluation of their emergent condition. - New Patient This patient is new to me today: Yes Date on this admission: 06/14/18 - Critical Care Critical Care patient: No
[2018-06-13] MEDS ORDERED: SODIUM CHLORIDE 1,000 ML IV SCH (18:45)
[2018-06-13] MEDS: INSULIN SLIDING SCALE (NOVOLOG) 1 VIAL SQ SCH (22:24)
[2018-06-14] MEDS: SODIUM CHLORIDE 0.45% 1,000 ML IV SCH ×3 (00:02→22:00)
[2018-06-14] MEDS: NYSTATIN 100000 UNIT/GM TOPICAL OINTMENT 15 GM TUBE TP SCH ×3 (00:02→22:00)
[2018-06-14] MEDS: DOXYCYCLINE HYCLATE 100 MG CAPSULE PO SCH ×3 (00:03→17:38)
--- NOTE | 2018-06-14 00:25 | PN ---
Teaching Attending Note Name of Resident: Igor Case ATTENDING PHYSICIAN STATEMENT I saw and evaluated the patient. I reviewed the resident's note and discussed the case with the resident. I agree with the resident's findings and plan as documented. SUBJECTIVE: Seen and examined; he is a 78 y/o CM with a complex PMH involving recent admit to ICU for LLL pneumonia who completed his course of Augmentin and was discharged. He also has CAD, Alzheimers, poorly controlled DM, urinary retention, HTN. He presents today to the ER for urinary retention for several days accompanied by constipation. He was having some dribbling but not able to get a full urinary stream. He felt very uncomfortable at time of presentation and was experiencing cramping, etc. His sx improved after merino placement by ER which lead to almost 2L urine out. He had this issue the last time he was here and was seen by for this. On arrival to the ER he was treated as sepsis , but no acute source of infection is clear with negative UA, negative CT abdomen and pelvis, and a diaper rash present on the patient's groin area that doesn't grossly appear to be infected but has one minor area of erythema; didn' t even register on the CT read as cellulitis. Will go ahead and admit to the medicine service for further treatment and monitoring. PMH as discussed 10 sys ROS done and negative aside from HPI FH asked and noncontributory No EtOH, tobacco OBJECTIVE: VSS, labs and imaging reviewed NAD, resting comfortbaly in bed RRR s1/2 no mgr NT ND +BS nonpalpable bladder Erythema around the biaper site; right sided excoriations with questionable minor cellulitic changes underlying the scabbed area CN2-12 grossly intact, no FND Normal mood and appropriate behavior ASSESSMENT AND PLAN: Patient is a 78 y/o CM presenting to the ER with urinary retention. Some suspicion for sepsis at presentation, but given the global picture this may all be secondary to acute urinary retention and constipation. He is hemodynamically stable and afebrile. Monitor on the floor with urology consultation. 1) Acute Urinary Retention -Secondary to obstructive uropathy due to BPH; merino is in -Urology consult; see other items for further management 2) Leukocytosis -Likely reactive; as unclear source and afebrile with stable hemodynamics less likely sepsis and more likely reactive due to the massive urinary retention. Will trend. [place] coverage if febrile. 3) BPH -Increased tamsulosin to .8 and added finasteride. 4) PEREZ with obstructive uropathy -Improved post-merino; continue to trend and monitor UOP -1/2NS for correcting post obstructive diuresis. As 2L out I doubt he can keep up on fluid requirements (especially PO) overnight. 5) B/L Hydronephrosis -Due to #1; repeat an US in 48 hours to ensure it corrected 6) Acute Constipation -Stool softeners, PRN miralax -Giving 1x fleet enema. If no resolution consider disimpaction 7) H/O CAD -Continuing home meds 8) H/O HTN -Hold lisinopril; resume when clinically indicated 9) Diaper rash with possible cellulitis -Nystatin ointment BID -For the small area of possible cellulitis will do PO doxy BID x7 days 10) History of Alzheimer's -At baseline; monitor for worsening 11) Poorly Controlled DM -SSI; monitor 12) Hydrocele (L) -Outpatient followup 13) Asymptomatic Cholelithiasis -Negative exam; followup outpatient. Incidental finding on CT.
[2018-06-14] MEDS ORDERED: POLYETHYLENE GLYCOL 3350 119 GM BTL PO PRN (00:26)
[2018-06-14 00:49] LABS: BASO % 0.3 % (0-2.0); EOS % 0.6 % (0-4.5); HEMATOCRIT 37.5 % (35.4-49); HEMOGLOBIN 12.4 GM/dL (11.7-16.9); MCH 28.6 pg (25.7-33.7); MCHC 33.1 g/dl (32.0-35.9); MEAN CELL VOLUME 86.4 fl (80-96); MEAN PLT VOLUME 9.3 fl (7.5-11.1); NEUT % 83.1 % (42.8-82.8); PLATELET COUNT 269 K/MM3 (134-434); RBC 4.34 M/mm3 (4.00-5.60); RDW 15.7 % (11.9-15.9); WHITE BLOOD COUNT 13.6 K/mm3 (4.0-10.0)
[2018-06-14] MEDS: INSULIN SLIDING SCALE (NOVOLOG) 1 VIAL SQ SCH ×4 (07:03→22:00)
[2018-06-14 08:16] LABS: BASO % 0.3 % (0-2.0); EOS % 1.2 % (0-4.5); HEMATOCRIT 39.1 % (35.4-49); HEMOGLOBIN 12.6 GM/dL (11.7-16.9); LYMPH % 14.5 % (8-40); MCH 28.1 pg (25.7-33.7); MCHC 32.3 g/dl (32.0-35.9); MEAN CELL VOLUME 87.1 fl (80-96); MEAN PLT VOLUME 9.1 fl (7.5-11.1); MONO % 9.4 % (3.8-10.2); NEUT % 74.6 % (42.8-82.8); PLATELET COUNT 248 K/MM3 (134-434); RBC 4.48 M/mm3 (4.00-5.60); WHITE BLOOD COUNT 13.2 K/mm3 (4.0-10.0)
[2018-06-14] MEDS ORDERED: TAMSULOSIN HCL 0.4 MG CAP PO SCH (08:30)
[2018-06-14 08:42] LABS: ALBUMIN 2.8 g/dl (3.4-5.0); ALK PHOS 86 U/L (45-117); ANION GAP 11 MMOL/L (8-16); BLOOD UREA NITROGEN 32 mg/dL (7-18); CALCIUM 7.8 mg/dL (8.5-10.1); CHLORIDE 107 mmol/L (98-107); CO2 24 mmol/L (21-32); GLUCOSE,RANDOM 95 mg/dL (74-106); MAGNESIUM 2.1 mg/dL (1.8-2.4); PHOSPHOROUS 2.8 mg/dL (2.5-4.9); POTASSIUM 3.8 mmol/L (3.5-5.1); SGOT/AST 12 U/L (15-37); SGPT/ALT 21 U/L (13-61); SODIUM 143 mmol/L (136-145); TOT PROT 5.6 g/dl (6.4-8.2)
[2018-06-14] MEDS: ATORVASTATIN CA 20 MG TABLET (FP) PO SCH (09:12)
[2018-06-14] MEDS: HYDROCHLOROTHIAZIDE 25 MG TABLET (FP) PO SCH (09:12)
[2018-06-14] MEDS: TAMSULOSIN HCL 0.4 MG CAP PO SCH (09:12)
[2018-06-14] MEDS: FINASTERIDE 5 MG TABLET (FP) PO SCH (09:12)
[2018-06-14] MEDS: metoPROLOL SUCCINATE 25 MG TAB.SR.24H (FP) PO SCH (09:12)
[2018-06-14] MEDS: ENOXAPARIN NA (PORCINE) 40 MG/0.4 ML DISP.SYRIN SQ SCH (09:14)
[2018-06-14] MEDS ORDERED: PT OWN MED DRAWER 7, Y5N ONE (09:22)
[2018-06-14] MEDS ORDERED: LISINOPRIL 20 MG TABLET (FP) PO SCH (10:00)
[2018-06-14] MEDS ORDERED: PATIENT'S OWN MEDICATION (NON-FORMULARY) (Lisinopril/Hydrochlorothiazide [Lisinopril-Hctz PO SCH (10:00)
[2018-06-14 11:48] VITALS: BMI 19.5
--- NOTE | 2018-06-14 12:34 | CON.ID ---
Consult Consult Specialty:: infectious diseases Referred by:: Reason for Consultation:: uti - History of Present Illness Chief Complaint: urinary retention,rash on the scrotum History of Present Illness: 78 yo M with a PMHx of DM II, CAD,HTN and BPH recent admission for pneumonia and hyperglycemia admitted complaining of severe constipation, urinary incontinence, and a rash to his scrotum and penis. patient mentions that he has pain at the tip of the penis.patient was having hyperglycemia patient was doing well post discharge then noticed that he could not pass urine adn went into urinary retention and now has foleys catheter placed. Imaging studies show patient has a large prostate - History Source History Provided By: Patient Limitations to Obtaining History: No Limitations - Past Medical History [employer]: Yes: Alzheimer's - Alcohol/Substance Use Hx Alcohol Use: No - Smoking History Smoking history: Never smoked Home Medications - Allergies Allergies/Adverse Reactions: Allergies Allergy/AdvReac Type Severity Reaction Status Date / Time No Known Allergies Allergy Verified 06/13/18 12:52 - Home Medications Home Medications: Ambulatory Orders metFORMIN HCL [Metformin HCl] 500 mg PO TID 05/29/18 Atorvastatin Calcium [Lipitor] 20 mg PO DAILY 05/31/18 Glipizide [Glipizide ER] 10 mg PO BID 05/31/18 Lisinopril/Hydrochlorothiazide [Lisinopril-Hctz 20-25 mg Tab] 1 each PO DAILY Metoprolol Succinate [Toprol Xl] 25 mg PO DAILY 05/31/18 Amox-Tr/K Cl [Augmentin 875-125mg Tablet -] 1 tab PO BID@0800,1730 #14 tablet Tamsulosin HCl [Flomax -] 0.4 mg PO DAILY@0830 #30 cap.er.24h 06/03/18 Review of Systems - Review of Systems Constitutional: reports: No Symptoms Eyes: reports: No Symptoms HENT: reports: No Symptoms Neck: reports: No Symptoms Cardiovascular: reports: No Symptoms Respiratory: reports: No Symptoms Gastrointestinal: reports: No Symptoms Genitourinary: reports: Incontinence, Pain (tip of th penis), Other (scrotal rash) Musculoskeletal: reports: No Symptoms Integumentary: reports: Change in Color Neurological: reports: No Symptoms Endocrine: reports: No Symptoms Hematology/Lymphatic: reports: No Symptoms Psychiatric: reports: No Symptoms Physical Exam Vital Signs: Vital Signs Temperature 97.8 F 06/14/18 09:11 Pulse Rate 89 06/14/18 09:11 Respiratory Rate 18 06/14/18 09:11 Blood Pressure 114/58 L 06/14/18 09:11 O2 Sat by Pulse Oximetry (%) 96 06/13/18 22:00 Constitutional: Yes: Well Nourished, No Distress, Calm Cardiovascular: Yes: Regular Rate and Rhythm Respiratory: Yes: Regular, CTA Bilaterally Gastrointestinal: Yes: Normal Bowel Sounds, Soft Renal/: Yes: Freeman Present, Other (mild erythema of the scrotum noted) Musculoskeletal: Yes: WNL Extremities: Yes: WNL Neurological: Yes: Alert, Oriented Psychiatric: Yes: Alert, Oriented Labs: CBC, BMP 06/14/18 06:00 06/14/18 06:00 Imaging - Results Chest X-ray: Report Reviewed, Image Reviewed Cat Scan: Report Reviewed, Image Reviewed Assessment/Plan patient coming in with urinary retention with some erythema of th scrotum patient cx reports awaited patient received abx in the er i do not think patient has infection though some redness on the scrotum noted plan will empirically start patient on ceftriaxone once scrotum looks good will stop abx
--- NOTE | 2018-06-14 16:57 | PN ---
Physical Exam: SUBJECTIVE: Patient seen and examined at bedside. States OBJECTIVE: Vital Signs Period Temp Pulse Resp BP Sys/Shrestha Pulse Ox Last 24 Hr 97.2 F-98.9 F 67-92 18-18 107-121/55-86 96-98 GENERAL: The patient is awake, alert, and fully oriented, in no acute distress. HEAD: Normal with no signs of trauma. EYES: PERRL, extraocular movements intact, sclera anicteric, conjunctiva clear. No ptosis. ENT: Ears normal, nares patent, oropharynx clear without exudates, moist mucous membranes. NECK: Trachea midline, full range of motion, supple. LUNGS: Breath sounds equal, clear to auscultation bilaterally, no wheezes, no crackles, no accessory muscle use. HEART: Regular rate and rhythm, S1, S2 without murmur, rub or gallop. ABDOMEN: Soft, nontender, nondistended, normoactive bowel sounds, no guarding, no rebound, no hepatosplenomegaly, no masses. EXTREMITIES: 2+ pulses, warm, well-perfused, no edema. NEUROLOGICAL: Cranial nerves II through XII grossly intact. Normal speech, gait not observed. PSYCH: Normal mood, normal affect. SKIN: Warm, dry, normal turgor, no rashes or lesions noted Laboratory Results - last 24 hr 06/13/18 06/13/18 06/14/18 16:40 21:16 00:00 WBC 13.6 H RBC 4.34 Hgb 12.4 Hct 37.5 D MCV 86.4 MCH 28.6 MCHC 33.1 RDW 15.7 Plt Count 269 D MPV 9.3 Absolute Neuts (auto) 11.3 H Neutrophils % 83.1 H Lymphocytes % 8.0 D Monocytes % 8.0 Eosinophils % 0.6 D Basophils % 0.3 Nucleated RBC % 0 Sodium 138 Potassium 3.9 Chloride 103 Carbon Dioxide 23 Anion Gap 12 BUN 46 H Creatinine 1.2 Creat Clearance w eGFR 58.71 POC Glucometer 116 Random Glucose 229 H Hemoglobin A1c % Calcium 8.1 L Phosphorus Magnesium Total Bilirubin AST ALT Alkaline Phosphatase Total Protein Albumin 06/14/18 06/14/18 06/14/18 06:00 06:00 06:00 WBC 13.2 H RBC 4.48 Hgb 12.6 Hct 39.1 MCV 87.1 MCH 28.1 MCHC 32.3 RDW 16.0 H Plt Count 248 MPV 9.1 Absolute Neuts (auto) 9.9 H Neutrophils % 74.6 Lymphocytes % 14.5 D Monocytes % 9.4 Eosinophils % 1.2 D Basophils % 0.3 Nucleated RBC % 0 Sodium 143 Potassium 3.8 Chloride 107 Carbon Dioxide 24 Anion Gap 11 BUN 32 H Creatinine 1.0 Creat Clearance w eGFR > 60 POC Glucometer Random Glucose 95 Hemoglobin A1c % 8.9 H Calcium 7.8 L Phosphorus 2.8 Magnesium 2.1 Total Bilirubin 1.0 AST 12 L ALT 21 Alkaline Phosphatase 86 Total Protein 5.6 L Albumin 2.8 L 06/14/18 06/14/18 06:31 12:13 WBC RBC Hgb Hct MCV MCH MCHC RDW Plt Count MPV Absolute Neuts (auto) Neutrophils % Lymphocytes % Monocytes % Eosinophils % Basophils % Nucleated RBC % Sodium Potassium Chloride Carbon Dioxide Anion Gap BUN Creatinine Creat Clearance w eGFR POC Glucometer 103 137 Random Glucose Hemoglobin A1c % Calcium Phosphorus Magnesium Total Bilirubin AST ALT Alkaline Phosphatase Total Protein Albumin Active Medications Generic Name Dose Route Start Last Admin Trade Name Freq PRN Reason Stop Dose Admin Atorvastatin Calcium 20 mg 06/14/18 10:00 06/14/18 09:12 Lipitor - PO 20 mg DAILY MECHELLE Administration Doxycycline Hyclate 100 mg 06/13/18 23:34 06/14/18 09:33 Vibramycin - PO 100 mg BID@1000,1800 MECHELLE Administration Enoxaparin Sodium 40 mg 06/14/18 10:00 06/14/18 09:14 Lovenox - SQ 40 mg DAILY MECHELLE Administration Finasteride 5 mg 06/14/18 10:00 06/14/18 09:12 Proscar - PO 5 mg DAILY MECHELLE Administration Hydrochlorothiazide 25 mg 06/14/18 10:00 06/14/18 09:12 Hctz - PO 25 mg DAILY MECHELLE Administration Sodium Chloride 1,000 mls @ 100 mls/hr 06/13/18 23:30 06/14/18 10:51 1/2 Normal Saline IV 100 mls/hr ASDIR MECHELLE Administration Ceftriaxone Sodium 1 gm/ 50 mls @ 100 mls/hr 06/15/18 10:00 Dextrose IVPB DAILY MECHELLE Protocol Insulin Aspart 1 vial 06/13/18 22:00 06/14/18 12:18 Novolog Vial Sliding Scale - SQ Not Given ACHS MECHELLE Protocol Metoprolol Succinate 25 mg 06/14/18 10:00 06/14/18 09:12 Toprol Xl - PO 25 mg DAILY MECHELLE Administration Nystatin 1 applic 06/13/18 23:45 06/14/18 09:33 Mycostatin Ointment - TP 1 applic BID MECHELLE Administration Polyethylene Glycol 17 gm 06/14/18 00:26 Miralax (For Daily Use) - PO DAILY PRN CONSTIPATION Tamsulosin HCl 0.8 mg 06/14/18 08:30 06/14/18 09:12 Flomax - PO 0.8 mg DAILY@0830 MECHELLE Administration ASSESSMENT/PLAN: 78 y/o male with PMH of BPH, CAD, HTN, DM, presents to the ED wi complaints of urinary retention, constipation and scrotal rash. #) Acute urinary retention: -follow up prostate US -flomax .8 and finasteride -trend and monitor UOP -urology consulted #) Constipation -patient received 1 fleet enema this am -stool softeners and PRN miralax on board #) CAD -c/w toprol 50XL and HCTZ 25 #) DM -ISS -BGM #)HTN -holding lisinopril #) Scrotal Rash -ID consulted -Ceftiaxone 1gram daily -nystatin cream F/E/N not on fluids replete electrolytes if needed diabetic diet DVT PPX: lovenox 40 Problem List - Problems (1) PEREZ (acute kidney injury) Code(s): N17.9 - ACUTE KIDNEY FAILURE, UNSPECIFIED (2) CAD (coronary artery disease) Code(s): I25.10 - ATHSCL HEART DISEASE OF [place] CORONARY ARTERY W/O ANG PCTRS Qualifiers: Coronary Disease-Associated Artery/Lesion type: [place] artery [place] vs. transplanted heart: [place] heart Associated angina: with unspecified angina Qualified Code(s): I25.119 - Atherosclerotic heart disease of [place] coronary artery with unspecified angina pectoris (3) DM type 2 (diabetes mellitus, type 2) Code(s): E11.9 - TYPE 2 DIABETES MELLITUS WITHOUT COMPLICATIONS Qualifiers: Diabetes mellitus fpc insulin use: without lobsterman use Diabetes mellitus complication status: with unspecified complications Qualified Code(s) : E11.8 - Type 2 diabetes mellitus with unspecified complications (4) HTN (hypertension) Code(s): I10 - ESSENTIAL (PRIMARY) HYPERTENSION Qualifiers: Hypertension type: essential hypertension Qualified Code(s): I10 - Essential (primary) hypertension (5) Urinary retention due to benign prostatic hyperplasia Code(s): N40.1 - BENIGN PROSTATIC HYPERPLASIA WITH LOWER URINARY TRACT SYMP; R33.8 - OTHER RETENTION OF URINE Visit type - Emergency Visit Emergency Visit: Yes ED Registration Date: 06/13/18 Care time: The patient presented to the Emergency Department on the above date and was hospitalized for further evaluation of their emergent condition. - New Patient This patient is new to me today: Yes Date on this admission: 06/14/18 - Critical Care Critical Care patient: No
--- NOTE | 2018-06-14 17:45 | PN ---
Teaching Attending Note Name of Resident: Tanya Higginbotham ATTENDING PHYSICIAN STATEMENT I saw and evaluated the patient. I reviewed the resident's note and discussed the case with the resident. I agree with the resident's findings and plan as documented. SUBJECTIVE: Urinary retention, S/P merino placement, has no complaints at this time. still a bit constipated complains of irritation around the meatous OBJECTIVE: in no distress, cachectic s1s2 ctab abd; non tender NO rash in the genitalia Last Vital Signs Temp Pulse Resp BP Pulse Ox 98.5 F 91 H 18 107/55 L 96 06/14/18 14:47 06/14/18 14:47 06/14/18 14:47 06/14/18 14:47 06/14/18 09:00 CBCD WBC 13.2 K/mm3 (4.0-10.0) H 06/14/18 06:00 RBC 4.48 M/mm3 (4.00-5.60) 06/14/18 06:00 Hgb 12.6 GM/dL (11.7-16.9) 06/14/18 06:00 Hct 39.1 % (35.4-49) 06/14/18 06:00 MCV 87.1 fl (80-96) 06/14/18 06:00 MCHC 32.3 g/dl (32.0-35.9) 06/14/18 06:00 RDW 16.0 % (11.9-15.9) H 06/14/18 06:00 Plt Count 248 K/MM3 (134-434) 06/14/18 06:00 MPV 9.1 fl (7.5-11.1) 06/14/18 06:00 CMP Sodium 143 mmol/L (136-145) 06/14/18 06:00 Potassium 3.8 mmol/L (3.5-5.1) 06/14/18 06:00 Chloride 107 mmol/L (98-107) 06/14/18 06:00 Carbon Dioxide 24 mmol/L (21-32) 06/14/18 06:00 Anion Gap 11 MMOL/L (8-16) 06/14/18 06:00 BUN 32 mg/dL (7-18) H 06/14/18 06:00 Creatinine 1.0 mg/dL (0.55-1.3) 10/26/18 06:00 Creat Clearance w eGFR > 60 (>60) 06/14/18 06:00 Random Glucose 95 mg/dL (74-106) 06/14/18 06:00 Calcium 7.8 mg/dL (8.5-10.1) L 06/14/18 06:00 Total Bilirubin 1.0 mg/dL (0.2-1) 06/14/18 06:00 AST 12 U/L (15-37) L 06/14/18 06:00 ALT 21 U/L (13-61) 06/14/18 06:00 Alkaline Phosphatase 86 U/L (45-117) 06/14/18 06:00 Total Protein 5.6 g/dl (6.4-8.2) L 06/14/18 06:00 Albumin 2.8 g/dl (3.4-5.0) L 06/14/18 06:00 CARDIAC ENZYMES Creatine Kinase 102 IU/L (26-308) 06/13/18 14:35 Intake & Output 06/11/18 06/12/18 06/13/18 06/14/18 23:59 23:59 23:59 23:59 Intake Total 450 400 Output Total 2700 1700 Balance -2250 -1300 Weight 119 lb 6 oz 121 lb ASSESSMENT AND PLAN: 78 y/o CM with a complex PMH involving recent admit to ICU for LLL pneumonia who completed his course of Augmentin and was discharged. He also has CAD, Alzheimers, poorly controlled DM, urinary retention, HTN. urinary retention: C.W increased dose of tamsulosin get prostate US F.U with recs improve BM and bowel regimens N ABX Constipation: improve bowel regme, encouraged to get out of the bed Malnutrition; nutrition consult to evaluate the patient\ PEREZ: 2/2 obstruction: improving, he has good po intake can DC IV fluids at this time. no need ofr daily labs as the trend is improving, only need for labs is for na/K for post obstructive polyuria at this time. rest of the management per Hs note
[2018-06-15] MEDS: SODIUM CHLORIDE 0.45% 1,000 ML IV SCH (06:34)
[2018-06-15] MEDS: INSULIN SLIDING SCALE (NOVOLOG) 1 VIAL SQ SCH ×4 (06:36→21:41)
[2018-06-15 08:26] LABS: HEMATOCRIT 36.6 % (35.4-49); HEMOGLOBIN 11.9 GM/dL (11.7-16.9); MCH 28.4 pg (25.7-33.7); MCHC 32.4 g/dl (32.0-35.9); MEAN CELL VOLUME 87.7 fl (80-96); MEAN PLT VOLUME 9.2 fl (7.5-11.1); PLATELET COUNT 200 K/MM3 (134-434); RBC 4.18 M/mm3 (4.00-5.60); RDW 15.9 % (11.9-15.9); WHITE BLOOD COUNT 9.4 K/mm3 (4.0-10.0)
[2018-06-15] MEDS ORDERED: DOCUSATE SODIUM 100 MG CAPSULE (FP) PO PRN (08:50)
--- NOTE | 2018-06-15 08:50 | PN ---
Physical Exam: SUBJECTIVE: Patient seen and examined at bedside. No acute events overnight- patient states he is feeling ok and is urinating without any pain. However, he is still constipated nad has not had a bowel movement since the enema was given yesterday morning. He thinks his scrotal rash and penile infection is improving - he denies any burning/pain or itchiness to the area. He denies any CP/SOB/N/V fevers or chills. OBJECTIVE: Vital Signs Period Temp Pulse Resp BP Sys/Shrestha Pulse Ox Last 24 Hr 97.8 F-98.5 F 79-92 18-20 107-133/55-68 96-96 GENERAL: The patient is awake, alert, and fully oriented, in no acute distress. EYES: no scleral icterus NECK: no JVD appreciated LUNGS: CTA B/L; no rales, rhonchi or wheezing HEART: Regular rate and rhythm, S1, S2 without murmur, rub or gallop. ABDOMEN: Soft, nontender, nondistended, normoactive bowel sounds, no guarding, no rebound, no hepatosplenomegaly, no masses. EXTREMITIES: 2+ pulses, warm, well-perfused, no edema. PSYCH: Normal mood, normal affect. SKIN: Warm, dry, normal turgor, no rashes or lesions noted Laboratory Results - last 24 hr 06/14/18 06/14/18 06/14/18 12:13 17:36 21:59 POC Glucometer 137 244 190 06/15/18 06:35 POC Glucometer 163 Active Medications Generic Name Dose Route Start Last Admin Trade Name Freq PRN Reason Stop Dose Admin Atorvastatin Calcium 20 mg 06/14/18 10:00 06/14/18 09:12 Lipitor - PO 20 mg DAILY MECHELLE Administration Doxycycline Hyclate 100 mg 06/13/18 23:34 06/14/18 17:38 Vibramycin - PO 100 mg BID@1000,1800 MECHELLE Administration Enoxaparin Sodium 40 mg 06/14/18 10:00 06/14/18 09:14 Lovenox - SQ 40 mg DAILY MECHELLE Administration Finasteride 5 mg 06/14/18 10:00 06/14/18 09:12 Proscar - PO 5 mg DAILY MECHELLE Administration Hydrochlorothiazide 25 mg 06/14/18 10:00 06/14/18 09:12 Hctz - PO 25 mg DAILY MECHELLE Administration Sodium Chloride 1,000 mls @ 100 mls/hr 06/13/18 23:30 06/15/18 06:34 1/2 Normal Saline IV Not Given [facility] Ceftriaxone Sodium 1 gm/ 50 mls @ 100 mls/hr 06/15/18 10:00 Dextrose IVPB DAILY [facility] Protocol Insulin Aspart 1 vial 06/13/18 22:00 06/15/18 06:36 Novolog Vial Sliding Scale - SQ 2 units ACHS MECHELLE Administration Protocol Metoprolol Succinate 25 mg 06/14/18 10:00 06/14/18 09:12 Toprol Xl - PO 25 mg DAILY MECHELLE Administration Nystatin 1 applic 06/13/18 23:45 06/14/18 22:00 Mycostatin Ointment - TP 1 applic BID MECHELLE Administration Polyethylene Glycol 17 gm 06/14/18 00:26 Miralax (For Daily Use) - PO DAILY PRN CONSTIPATION Tamsulosin HCl 0.8 mg 06/14/18 08:30 06/14/18 09:12 Flomax - PO 0.8 mg DAILY@0830 MECHELLE Administration ASSESSMENT/PLAN: 78 y/o male with PMH of BPH, CAD, HTN, DM, presents to the ED wih complaints of urinary retention, constipation and scrotal rash. #) Acute urinary retention: prostate US showed prominent enlargement of the prostate with a volume of 70 ml ; there were no lesions/masses or calculi seen within the bladder -flomax .8 and finasteride 5mg -trend and monitor UOP -urology consulted- f/u recs #) Constipation -patient received 1 fleet enema this am -colace 100 BID and PRN miralax on board #) CAD -c/w toprol 50XL and HCTZ 25 #) DM -ISS -BGM #)HTN -holding lisinopril #) Scrotal Rash -ID consulted -Ceftiaxone 1gram daily -nystatin cream F/E/N not on fluids replete electrolytes if needed diabetic diet DVT PPX: lovenox 40 Problem List - Problems (1) PEREZ (acute kidney injury) Code(s): N17.9 - ACUTE KIDNEY FAILURE, UNSPECIFIED (2) CAD (coronary artery disease) Code(s): I25.10 - ATHSCL HEART DISEASE OF [place] CORONARY ARTERY W/O ANG PCTRS Qualifiers: Coronary Disease-Associated Artery/Lesion type: [place] artery [place] vs. transplanted heart: [place] heart Associated angina: with unspecified angina Qualified Code(s): I25.119 - Atherosclerotic heart disease of [place] coronary artery with unspecified angina pectoris (3) DM type 2 (diabetes mellitus, type 2) Code(s): E11.9 - TYPE 2 DIABETES MELLITUS WITHOUT COMPLICATIONS Qualifiers: Diabetes mellitus terminal gauger supervisor insulin use: without longterm use Diabetes mellitus complication status: with unspecified complications Qualified Code(s) : E11.8 - Type 2 diabetes mellitus with unspecified complications (4) HTN (hypertension) Code(s): I10 - ESSENTIAL (PRIMARY) HYPERTENSION Qualifiers: Hypertension type: essential hypertension Qualified Code(s): I10 - Essential (primary) hypertension (5) Urinary retention due to benign prostatic hyperplasia Code(s): N40.1 - BENIGN PROSTATIC HYPERPLASIA WITH LOWER URINARY TRACT SYMP; R33.8 - OTHER RETENTION OF URINE Visit type - Emergency Visit Emergency Visit: Yes ED Registration Date: 06/13/18 Care time: The patient presented to the Emergency Department on the above date and was hospitalized for further evaluation of their emergent condition. - New Patient This patient is new to me today: No - Critical Care Critical Care patient: No
[2018-06-15 08:53] LABS: ANION GAP 8 MMOL/L (8-16); BLOOD UREA NITROGEN 23 mg/dL (7-18); CALCIUM 7.8 mg/dL (8.5-10.1); CHLORIDE 109 mmol/L (98-107); CO2 22 mmol/L (21-32); CREATININE 0.9 mg/dL (0.55-1.3); GLUCOSE,RANDOM 136 mg/dL (74-106); PHOSPHOROUS 2.5 mg/dL (2.5-4.9); POTASSIUM 3.6 mmol/L (3.5-5.1); SODIUM 139 mmol/L (136-145)
[2018-06-15] MEDS ORDERED: cefTRIAXone SODIUM 1 GM VIAL ONE (09:35)
[2018-06-15] MEDS ORDERED: PT OWN MED DRAWER 7, Y5N ONE (09:35)
[2018-06-15] MEDS ORDERED: DEXTROSE 5%-WATER - 50 ML IVPB ONE (09:35)
[2018-06-15] MEDS: ATORVASTATIN CA 20 MG TABLET (FP) PO SCH ×2 (10:00→21:40)
[2018-06-15] MEDS ORDERED: CEFTRIAXONE 1 GM in DEXTROSE 5%-WATER - 50 ML IVPB SCH (10:00)
[2018-06-15] MEDS: HYDROCHLOROTHIAZIDE 25 MG TABLET (FP) PO SCH (10:10)
[2018-06-15] MEDS: metoPROLOL SUCCINATE 25 MG TAB.SR.24H (FP) PO SCH (10:10)
[2018-06-15] MEDS: TAMSULOSIN HCL 0.4 MG CAP PO SCH (10:10)
[2018-06-15] MEDS: FINASTERIDE 5 MG TABLET (FP) PO SCH (10:10)
[2018-06-15] MEDS: DOCUSATE SODIUM 100 MG CAPSULE (FP) PO SCH ×2 (10:10→21:40)
[2018-06-15] MEDS: DOXYCYCLINE HYCLATE 100 MG CAPSULE PO SCH (10:11)
[2018-06-15] MEDS: ENOXAPARIN NA (PORCINE) 40 MG/0.4 ML DISP.SYRIN SQ SCH (10:11)
[2018-06-15] MEDS: NYSTATIN 100000 UNIT/GM TOPICAL OINTMENT 15 GM TUBE TP SCH ×2 (11:57→21:40)
--- NOTE | 2018-06-15 12:28 | PN ---
Teaching Attending Note Name of Resident: Tanya Higginbotham ATTENDING PHYSICIAN STATEMENT I saw and evaluated the patient. I reviewed the resident's note and discussed the case with the resident. I agree with the resident's findings and plan as documented. SUBJECTIVE: In no distress. he states that his appetite has improved, walked him out of the bed and he tolerated well OBJECTIVE: Last Vital Signs Temp Pulse Resp BP Pulse Ox 98.4 F 82 20 118/61 96 06/15/18 06:00 06/15/18 06:00 06/15/18 06:00 06/15/18 06:00 06/14/18 21:00 in no distress, merino in place, minimal erythma in the scrotal rrea, wiht no clear cellulitis has a healed ulcer in the R gorin area which he states was due to the dippers. also has sacral pressure ulcer with no drainage. CVS:S12 Abd: no suprapubic tenderness. Labs: CBCD WBC 9.4 K/mm3 (4.0-10.0) 06/15/18 07:15 RBC 4.18 M/mm3 (4.00-5.60) 06/15/18 07:15 Hgb 11.9 GM/dL (11.7-16.9) 06/15/18 07:15 Hct 36.6 % (35.4-49) 06/15/18 07:15 MCV 87.7 fl (80-96) 06/15/18 07:15 MCHC 32.4 g/dl (32.0-35.9) 06/15/18 07:15 RDW 15.9 % (11.9-15.9) 06/15/18 07:15 Plt Count 200 K/MM3 (134-434) 06/15/18 07:15 MPV 9.2 fl (7.5-11.1) 06/15/18 07:15 Laboratory Tests 06/13/18 06/13/18 06/14/18 13:15 16:40 06:00 Sodium 130 L 143 Potassium 4.0 3.8 Carbon Dioxide 21 24 BUN 53 H 46 H 32 H Creatinine 1.7 H 1.2 1.0 POC Glucometer Hemoglobin A1c % 06/14/18 06/14/18 06/14/18 06:00 06:31 12:13 Sodium Potassium Carbon Dioxide BUN Creatinine POC Glucometer 103 137 Hemoglobin A1c % 8.9 H 06/14/18 06/14/18 06/15/18 17:36 21:59 06:35 Sodium Potassium Carbon Dioxide BUN Creatinine POC Glucometer 244 190 163 Hemoglobin A1c % 06/15/18 06/15/18 07:15 11:52 Sodium 139 Potassium 3.6 Carbon Dioxide 22 BUN 23 H Creatinine 0.9 POC Glucometer 253 Hemoglobin A1c % Current Medications Generic Name Dose Route Start Last Admin Trade Name Lyndsay PRN Reason Stop Dose Admin Atorvastatin Calcium 20 mg 06/14/18 10:00 06/14/18 09:12 Lipitor - PO 20 mg DAILY MECHELLE Administration Docusate Sodium 100 mg 06/15/18 10:00 06/15/18 10:10 Colace - PO 100 mg BID MECHELLE Administration Doxycycline Hyclate 100 mg 06/13/18 23:34 06/15/18 10:11 Vibramycin - PO 100 mg BID@1000,1800 MECHELLE Administration Enoxaparin Sodium 40 mg 06/14/18 10:00 06/15/18 10:11 Lovenox - SQ 40 mg DAILY MECHELLE Administration Finasteride 5 mg 06/14/18 10:00 06/15/18 10:10 Proscar - PO 5 mg DAILY MECHELLE Administration Hydrochlorothiazide 25 mg 06/14/18 10:00 06/15/18 10:10 Hctz - PO 25 mg DAILY MECHELLE Administration Ceftriaxone Sodium 1 gm/ 50 mls @ 100 mls/hr 06/15/18 10:00 06/15/18 10:10 Dextrose IVPB 100 mls/hr DAILY MECHELLE Administration Protocol Insulin Aspart 1 vial 06/13/18 22:00 06/15/18 11:57 Novolog Vial Sliding Scale - SQ 6 units ACHS MECHELLE Administration Protocol Metoprolol Succinate 25 mg 06/14/18 10:00 06/15/18 10:10 Toprol Xl - PO 25 mg DAILY MECHELLE Administration Nystatin 1 applic 06/13/18 23:45 06/15/18 11:57 Mycostatin Ointment - TP 1 applic BID MECHELLE Administration Polyethylene Glycol 17 gm 06/14/18 00:26 Miralax (For Daily Use) - PO DAILY PRN CONSTIPATION Tamsulosin HCl 0.8 mg 06/14/18 08:30 06/15/18 10:10 Flomax - PO 0.8 mg DAILY@0830 MECHELLE Administration ASSESSMENT AND PLAN: 78 y/o CM with a complex PMH involving recent admit to ICU for LLL pneumonia who completed his course of Augmentin and was discharged. He also has CAD, Alzheimers, poorly controlled DM, urinary retention, HTN. urinary retention: C.W increased dose of tamsulosin get prostate US F.U with recs improve BM and bowel regimens ABX were DCed today Constipation: improve bowel regimen, encouraged to get out of the bed Malnutrition; nutrition consult to evaluate the patient\ PEREZ: 2/2 obstruction: improving, he has good po intake can DC IV fluids at this time. no need ofr daily labs as the trend is improving, only need for labs is for na/K for post obstructive polyuria at this time. DM: will start on basal, bollus insulin No need ofr daily labs for the patient multiple pressure ulcers: started on Zinc, nutrition supplements rest of the management per Hs note
[2018-06-15] MEDS ORDERED: BISACODYL 5 MG TABLET.DR (FP) PO ONE (12:36)
--- NOTE | 2018-06-15 16:09 | PN ---
Progress Note, Physician History of Present Illness: Pt is alert, afebrile. Merino catheter in place. No specific new complaints. Antibiotics were discontinued. - Current Medication List Current Medications: Active Medications Atorvastatin Calcium (Lipitor -) 20 mg PO HS [facility] Docusate Sodium (Colace -) 100 mg PO BID [facility] Last Admin: 06/15/18 10:10 Dose: 100 mg Enoxaparin Sodium (Lovenox -) 40 mg SQ DAILY [facility] Last Admin: 06/15/18 10:11 Dose: 40 mg Finasteride (Proscar -) 5 mg PO DAILY [facility] Last Admin: 06/15/18 10:10 Dose: 5 mg Hydrochlorothiazide (Hctz -) 25 mg PO DAILY [facility] Last Admin: 06/15/18 10:10 Dose: 25 mg Insulin Aspart (Novolog Vial Sliding Scale -) 1 vial SQ ACHS [facility]; Protocol Last Admin: 06/15/18 11:57 Dose: 6 units Metoprolol Succinate (Toprol Xl -) 25 mg PO DAILY [facility] Last Admin: 06/15/18 10:10 Dose: 25 mg Nystatin (Mycostatin Ointment -) 1 applic TP BID [facility] Last Admin: 06/15/18 11:57 Dose: 1 applic Polyethylene Glycol (Miralax (For Daily Use) -) 17 gm PO DAILY PRN PRN Reason: CONSTIPATION Tamsulosin HCl (Flomax -) 0.8 mg PO DAILY@0830 [facility] Last Admin: 06/15/18 10:10 Dose: 0.8 mg - Objective Vital Signs: Vital Signs Temperature 97.9 F 06/15/18 14:45 Pulse Rate 88 06/15/18 14:45 Respiratory Rate 16 06/15/18 14:45 Blood Pressure 114/63 06/15/18 14:45 O2 Sat by Pulse Oximetry (%) 99 06/15/18 09:00 Constitutional: Yes: No Distress, Calm Cardiovascular: Yes: Regular Rate and Rhythm Respiratory: Yes: Regular Gastrointestinal: Yes: Normal Bowel Sounds, Soft Genitourinary: Yes: Merino Present Integumentary: Yes: Rash (Scrotal/groin erythema, no warmth/tenderness Rt groin ulcer with eschar, no drainage) Neurological: Yes: Alert, Oriented Labs: CBC, BMP 06/15/18 07:15 06/15/18 07:15 Problem List - Problems (1) PEREZ (acute kidney injury) Code(s): N17.9 - ACUTE KIDNEY FAILURE, UNSPECIFIED (2) CAD (coronary artery disease) Code(s): I25.10 - ATHSCL HEART DISEASE OF [place] CORONARY ARTERY W/O ANG PCTRS Qualifiers: Coronary Disease-Associated Artery/Lesion type: [place] artery [place] vs. transplanted heart: [place] heart Associated angina: with unspecified angina Qualified Code(s): I25.119 - Atherosclerotic heart disease of [place] coronary artery with unspecified angina pectoris (3) DM type 2 (diabetes mellitus, type 2) Code(s): E11.9 - TYPE 2 DIABETES MELLITUS WITHOUT COMPLICATIONS Qualifiers: Diabetes mellitus senior living insulin use: without intermediate project manager use Diabetes mellitus complication status: with unspecified complications Qualified Code(s) : E11.8 - Type 2 diabetes mellitus with unspecified complications (4) HTN (hypertension) Code(s): I10 - ESSENTIAL (PRIMARY) HYPERTENSION Qualifiers: Hypertension type: essential hypertension Qualified Code(s): I10 - Essential (primary) hypertension (5) Urinary retention due to benign prostatic hyperplasia Code(s): N40.1 - BENIGN PROSTATIC HYPERPLASIA WITH LOWER URINARY TRACT SYMP; R33.8 - OTHER RETENTION OF URINE Assessment/Plan Urinary retention s/p merino insertion DM s/p PNA Leukocytosis resolved Scrotal/groin rash -- IV antibiotics were d/c'd -- continue nystatin topical to groin -- urology f/u wbc normal, pt afebrile
[2018-06-15] MEDS ORDERED: INSULIN (NOVOLOG) ASPART 100 UNITS/ML 10ML VIAL ONE (21:15)
[2018-06-16] MEDS: INSULIN SLIDING SCALE (NOVOLOG) 1 VIAL SQ SCH ×4 (06:50→21:51)
[2018-06-16 07:52] LABS: HEMATOCRIT 38.4 % (35.4-49); HEMOGLOBIN 12.6 GM/dL (11.7-16.9); MCH 28.6 pg (25.7-33.7); MCHC 32.8 g/dl (32.0-35.9); MEAN CELL VOLUME 87.1 fl (80-96); MEAN PLT VOLUME 9.3 fl (7.5-11.1); PLATELET COUNT 200 K/MM3 (134-434); RBC 4.41 M/mm3 (4.00-5.60); RDW 15.8 % (11.9-15.9); WHITE BLOOD COUNT 9.1 K/mm3 (4.0-10.0)
[2018-06-16] MEDS: TAMSULOSIN HCL 0.4 MG CAP PO SCH (08:44)
[2018-06-16 08:53] LABS: ANION GAP 11 MMOL/L (8-16); BLOOD UREA NITROGEN 30 mg/dL (7-18); CALCIUM 8.5 mg/dL (8.5-10.1); CHLORIDE 105 mmol/L (98-107); CO2 23 mmol/L (21-32); GLUCOSE,RANDOM 189 mg/dL (74-106); POTASSIUM 3.6 mmol/L (3.5-5.1); SODIUM 139 mmol/L (136-145)
[2018-06-16] MEDS: DOCUSATE SODIUM 100 MG CAPSULE (FP) PO SCH ×2 (09:41→21:50)
[2018-06-16] MEDS: HYDROCHLOROTHIAZIDE 25 MG TABLET (FP) PO SCH (09:42)
[2018-06-16] MEDS: ENOXAPARIN NA (PORCINE) 40 MG/0.4 ML DISP.SYRIN SQ SCH (09:42)
[2018-06-16] MEDS: NYSTATIN 100000 UNIT/GM TOPICAL OINTMENT 15 GM TUBE TP SCH (09:42)
[2018-06-16] MEDS: FINASTERIDE 5 MG TABLET (FP) PO SCH (09:43)
[2018-06-16] MEDS: metoPROLOL SUCCINATE 25 MG TAB.SR.24H (FP) PO SCH (09:43)
--- NOTE | 2018-06-16 11:07 | PN ---
Progress Note (short form) - Note Progress Note: c/o penile irritation due to merino catheter. denies Cp, SOB, fever, chills, N/V/ C/D Current Medications Generic Name Dose Route Start Last Admin Trade Name Freq PRN Reason Stop Dose Admin Atorvastatin Calcium 20 mg 06/15/18 14:48 06/15/18 21:40 Lipitor - PO 20 mg HS MECHELLE Administration Docusate Sodium 100 mg 06/15/18 10:00 06/16/18 09:41 Colace - PO 100 mg BID MECHELLE Administration Enoxaparin Sodium 40 mg 06/14/18 10:00 06/16/18 09:42 Lovenox - SQ 40 mg DAILY MECHELLE Administration Finasteride 5 mg 06/14/18 10:00 06/16/18 09:43 Proscar - PO 5 mg DAILY MECHELLE Administration Hydrochlorothiazide 25 mg 06/14/18 10:00 06/16/18 09:42 Hctz - PO 25 mg DAILY MECHELLE Administration Insulin Aspart 1 vial 06/13/18 22:00 06/16/18 06:50 Novolog Vial Sliding Scale - SQ 2 units ACHS MECHELLE Administration Protocol Metoprolol Succinate 25 mg 06/14/18 10:00 06/16/18 09:43 Toprol Xl - PO 25 mg DAILY MECHELLE Administration Nystatin 1 applic 06/13/18 23:45 06/16/18 09:42 Mycostatin Ointment - TP 1 applic BID MECHELLE Administration Polyethylene Glycol 17 gm 06/14/18 00:26 Miralax (For Daily Use) - PO DAILY PRN CONSTIPATION Tamsulosin HCl 0.8 mg 06/14/18 08:30 06/16/18 08:44 Flomax - PO 0.8 mg DAILY@0830 MECHELLE Administration Last Vital Signs Temp Pulse Resp BP Pulse Ox 98.4 F 80 20 118/74 98 06/16/18 06:00 06/16/18 06:00 06/16/18 06:00 06/16/18 06:00 06/15/18 21:00 General NAD CV S1 s2 RRR no murmru/rub/gallop Lungs CTA B/L no wheezing/rales/rhonch Abdomen soft NT/ND Genitalia scrotum is enlarged and tender on manipulation. eythema noted to the underside of the scrotum but due to positioning did not allow my full assessment. dried blood a penile meatus CBCD WBC 9.1 K/mm3 (4.0-10.0) 06/16/18 07:00 RBC 4.41 M/mm3 (4.00-5.60) 06/16/18 07:00 Hgb 12.6 GM/dL (11.7-16.9) 06/16/18 07:00 Hct 38.4 % (35.4-49) 06/16/18 07:00 MCV 87.1 fl (80-96) 06/16/18 07:00 MCHC 32.8 g/dl (32.0-35.9) 06/16/18 07:00 RDW 15.8 % (11.9-15.9) 06/16/18 07:00 Plt Count 200 K/MM3 (134-434) 06/16/18 07:00 MPV 9.3 fl (7.5-11.1) 06/16/18 07:00 CMP Sodium 139 mmol/L (136-145) 06/16/18 07:00 Potassium 3.6 mmol/L (3.5-5.1) 06/16/18 07:00 Chloride 105 mmol/L (98-107) 06/16/18 07:00 Carbon Dioxide 23 mmol/L (21-32) 06/16/18 07:00 Anion Gap 11 MMOL/L (8-16) 06/16/18 07:00 BUN 30 mg/dL (7-18) H 06/16/18 07:00 Creatinine 1.0 mg/dL (0.55-1.3) 06/16/18 07:00 Creat Clearance w eGFR > 60 (>60) 06/16/18 07:00 Calcium 8.5 mg/dL (8.5-10.1) 06/16/18 07:00 Total Bilirubin 1.0 mg/dL (0.2-1) 06/14/18 06:00 AST 12 U/L (15-37) L 06/14/18 06:00 ALT 21 U/L (13-61) 06/14/18 06:00 Alkaline Phosphatase 86 U/L (45-117) 06/14/18 06:00 Total Protein 5.6 g/dl (6.4-8.2) L 06/14/18 06:00 Albumin 2.8 g/dl (3.4-5.0) L 06/14/18 06:00 A/P 78yo M with PMH DM presented to the ER iwth urinary retention 1. Urinary retention- merino placed. U/s done showing prostate 70cc. good UOP. awaiting urology evaluation. plan for trial void tomorrow. maintain merino for now. on flomax/proscar. may benefit from procedure as outpatient 2. Constipation- small BM yesterday. will give suppository 3 Groin rash- unclear how he presented and if improving. however scrotum appears very tender. was on empiric ceftriaxone which was stopped yesterday. d/ w ID and urology about appearance. UA and u/s negative for infection. no signs of hydrocele or fluid. will order nystatin powder to area 4. PEREZ- now resolved 5. malnourished- encouraged po intake. dietary supplements 6. DM- hold oral agents. iss and BGM 7. DVT ppx- lovenox Visit type - Emergency Visit Emergency Visit: Yes ED Registration Date: 06/13/18 Care time: The patient presented to the Emergency Department on the above date and was hospitalized for further evaluation of their emergent condition. - New Patient This patient is new to me today: Yes Date on this admission: 06/16/18 - Critical Care Critical Care patient: No - Discharge Referral Referred to [facility] No
[2018-06-16] MEDS ORDERED: BISACODYL 10 MG SUPP.RECT RC ONE (11:30)
--- NOTE | 2018-06-16 14:05 | EKG ---
Test Reason : Blood Pressure : / mmHG Vent. Rate : 091 BPM Atrial Rate : 091 BPM P-R Int : 132 ms QRS Dur : 082 ms QT Int : 424 ms P-R-T Axes : 058 014 050 degrees QTc Int : 521 ms NORMAL SINUS RHYTHM PROLONGED QT ABNORMAL ECG WHEN COMPARED WITH ECG OF 29-MAY-2018 12:21, NO SIGNIFICANT CHANGE WAS FOUND Confirmed by MD Keita Edward ([id number]) on 06/16/2018 2:05:34 PM Referred By: Confirmed By:Christoph Keita MD
[2018-06-16] MEDS ORDERED: PT OWN MED DRAWER 7, Y5N ONE ×2 (14:30→19:26)
[2018-06-16] MEDS: NYSTATIN POWDER 100,000 UNITS/GM - 15 GM TOPICAL POWDER TP SCH (14:38)
--- NOTE | 2018-06-16 15:50 | PN ---
Progress Note, Physician History of Present Illness: Pt remains afebrile, without acute distress. Has "soreness" in scrotal region. - Current Medication List Current Medications: Active Medications Atorvastatin Calcium (Lipitor -) 20 mg PO HS [facility] Last Admin: 06/15/18 21:40 Dose: 20 mg Docusate Sodium (Colace -) 300 mg PO HS [facility] Enoxaparin Sodium (Lovenox -) 40 mg SQ DAILY [facility] Last Admin: 06/16/18 09:42 Dose: 40 mg Finasteride (Proscar -) 5 mg PO DAILY [facility] Last Admin: 06/16/18 09:43 Dose: 5 mg Hydrochlorothiazide (Hctz -) 25 mg PO DAILY [facility] Last Admin: 06/16/18 09:42 Dose: 25 mg Insulin Aspart (Novolog Vial Sliding Scale -) 1 vial SQ ACHS [facility]; Protocol Last Admin: 06/16/18 12:28 Dose: 6 units Metoprolol Succinate (Toprol Xl -) 25 mg PO DAILY [facility] Last Admin: 06/16/18 09:43 Dose: 25 mg Nystatin (Nystop Powder -) 1 applic TP DAILY [facility] Last Admin: 06/16/18 14:38 Dose: 1 applic Polyethylene Glycol (Miralax (For Daily Use) -) 17 gm PO BID [facility] Tamsulosin HCl (Flomax -) 0.8 mg PO DAILY@0830 [facility] Last Admin: 06/16/18 08:44 Dose: 0.8 mg - Objective Vital Signs: Vital Signs Temperature 98.7 F 06/16/18 15:12 Pulse Rate 95 H 06/16/18 15:12 Respiratory Rate 18 06/16/18 15:12 Blood Pressure 123/70 06/16/18 15:12 O2 Sat by Pulse Oximetry (%) 98 06/15/18 21:00 Constitutional: Yes: No Distress, Calm Cardiovascular: Yes: Regular Rate and Rhythm Respiratory: Yes: Regular Gastrointestinal: Yes: Normal Bowel Sounds, Soft Genitourinary: Yes: Merino Present, Other (mild scrotal erythema, no warmth/ fluctuance/induration) Neurological: Yes: Alert, Oriented Labs: CBC, BMP 06/16/18 07:00 06/16/18 07:00 Problem List - Problems (1) PEREZ (acute kidney injury) Code(s): N17.9 - ACUTE KIDNEY FAILURE, UNSPECIFIED (2) CAD (coronary artery disease) Code(s): I25.10 - ATHSCL HEART DISEASE OF [place] CORONARY ARTERY W/O ANG PCTRS Qualifiers: Coronary Disease-Associated Artery/Lesion type: [place] artery [place] vs. transplanted heart: [place] heart Associated angina: with unspecified angina Qualified Code(s): I25.119 - Atherosclerotic heart disease of [place] coronary artery with unspecified angina pectoris (3) DM type 2 (diabetes mellitus, type 2) Code(s): E11.9 - TYPE 2 DIABETES MELLITUS WITHOUT COMPLICATIONS Qualifiers: Diabetes mellitus detention insulin use: without terminal make up operator use Diabetes mellitus complication status: with unspecified complications Qualified Code(s) : E11.8 - Type 2 diabetes mellitus with unspecified complications (4) HTN (hypertension) Code(s): I10 - ESSENTIAL (PRIMARY) HYPERTENSION Qualifiers: Hypertension type: essential hypertension Qualified Code(s): I10 - Essential (primary) hypertension (5) Urinary retention due to benign prostatic hyperplasia Code(s): N40.1 - BENIGN PROSTATIC HYPERPLASIA WITH LOWER URINARY TRACT SYMP; R33.8 - OTHER RETENTION OF URINE Assessment/Plan Urinary retention s/p merino insertion DM s/p PNA Leukocytosis resolved Scrotal erythema - possible cellulitis groin rash -- add augmentin -- continue nystatin topical to groin -- urology f/u wbc normal, pt afebrile
[2018-06-16] MEDS: AMOX TR/POT CLAV 875MG/125MG TABLETS (FP) PO SCH (17:26)
[2018-06-16] MEDS ORDERED: INSULIN (NOVOLOG) ASPART 100 UNITS/ML 10ML VIAL ONE (19:26)
[2018-06-16] MEDS: ATORVASTATIN CA 20 MG TABLET (FP) PO SCH (21:50)
[2018-06-16] MEDS: POLYETHYLENE GLYCOL 3350 119 GM BTL PO SCH (21:54)
[2018-06-17] MEDS: INSULIN SLIDING SCALE (NOVOLOG) 1 VIAL SQ SCH ×4 (06:47→23:15)
[2018-06-17] MEDS: metoPROLOL SUCCINATE 25 MG TAB.SR.24H (FP) PO SCH (09:25)
[2018-06-17] MEDS: AMOX TR/POT CLAV 875MG/125MG TABLETS (FP) PO SCH ×2 (09:25→16:56)
[2018-06-17] MEDS: ENOXAPARIN NA (PORCINE) 40 MG/0.4 ML DISP.SYRIN SQ SCH (09:25)
[2018-06-17] MEDS: FINASTERIDE 5 MG TABLET (FP) PO SCH (09:25)
[2018-06-17] MEDS: HYDROCHLOROTHIAZIDE 25 MG TABLET (FP) PO SCH (09:25)
[2018-06-17] MEDS: TAMSULOSIN HCL 0.4 MG CAP PO SCH (09:25)
[2018-06-17] MEDS: NYSTATIN POWDER 100,000 UNITS/GM - 15 GM TOPICAL POWDER TP SCH (09:26)
[2018-06-17] MEDS: POLYETHYLENE GLYCOL 3350 119 GM BTL PO SCH (09:27)
--- NOTE | 2018-06-17 09:46 | PN ---
Physical Exam: SUBJECTIVE: Patient seen and examined at bedside. No acute events overnight- patient states he is feeling better. He has had 2 bowel movements since yesterday.In regards to his penile rash, states that it is not bothering him - he denies any itchiness, burning, or pain to the area. Patient was seen by ID yesterday who d/c'd the ceftriaxone and started him on augmentin 875mg BID for the scrotal rash. States that he is eating a lot which is a good thing. He denies any CP/SOB/N/V fevers or chills. OBJECTIVE: Vital Signs Period Temp Pulse Resp BP Sys/Shrestha Pulse Ox Last 24 Hr 97.4 F-98.9 F 72-95 18-20 118-127/66-74 98 GENERAL: The patient is awake, alert, and fully oriented, in no acute distress. EYES: no scleral icterus NECK: no JVD appreciated . LUNGS: CTA B/L; no rales, rhonchi or wheeezing HEART: Regular rate and rhythm, S1, S2 without murmur, rub or gallop. ABDOMEN: Soft, nontender, nondistended, normoactive bowel sounds, no guarding, no rebound, no hepatosplenomegaly, no masses. EXTREMITIES: 2+ pulses, warm, well-perfused, no edema. PSYCH: Normal mood, normal affect. SKIN: Warm, dry, normal turgor, no rashes or lesions noted Laboratory Results - last 24 hr 06/16/18 06/16/18 06/16/18 12:25 17:22 21:49 POC Glucometer 282 231 286 06/17/18 06:47 POC Glucometer 195 Active Medications Generic Name Dose Route Start Last Admin Trade Name Freq PRN Reason Stop Dose Admin Amoxicillin/Clavulanate Potassium 1 tab 06/16/18 17:30 06/17/18 09:25 Augmentin - 875mg Tablet PO 1 tab BID@0800,1730 MECHELLE Administration Atorvastatin Calcium 20 mg 06/15/18 14:48 06/16/18 21:50 Lipitor - PO 20 mg HS MECHELLE Administration Docusate Sodium 300 mg 06/16/18 22:00 06/16/18 21:50 Colace - PO 300 mg HS MECHELLE Administration Enoxaparin Sodium 40 mg 06/14/18 10:00 06/17/18 09:25 Lovenox - SQ 40 mg DAILY MECHELLE Administration Finasteride 5 mg 06/14/18 10:00 06/17/18 09:25 Proscar - PO 5 mg DAILY MECHELLE Administration Hydrochlorothiazide 25 mg 06/14/18 10:00 06/17/18 09:25 Hctz - PO 25 mg DAILY MECHELLE Administration Insulin Aspart 1 vial 06/13/18 22:00 06/17/18 06:47 Novolog Vial Sliding Scale - SQ 2 units ACHS MECHELLE Administration Protocol Metoprolol Succinate 25 mg 06/14/18 10:00 06/17/18 09:25 Toprol Xl - PO 25 mg DAILY MECHELLE Administration Nystatin 1 applic 06/16/18 11:30 06/17/18 09:26 Nystop Powder - TP 1 applic DAILY MECHELLE Administration Polyethylene Glycol 17 gm 06/16/18 22:00 06/17/18 09:27 Miralax (For Daily Use) - PO Not Given BID MECHELLE Tamsulosin HCl 0.8 mg 06/14/18 08:30 06/17/18 09:25 Flomax - PO 0.8 mg DAILY@0830 MECHELLE Administration ASSESSMENT/PLAN: 78 y/o male with PMH of BPH, CAD, HTN, DM, presents to the ED wih complaints of urinary retention, constipation and scrotal rash. #) Acute urinary retention: patient having good urine output; out out almost 3L in 24 hourat -flomax .8 and finasteride 5mg -trend and monitor UOP -urology consulted- will reconsult again and f/u recs #) Constipation patient no longer experiencing constipation- he had 2 bowel movements yesterday and one today; could also have been playing a role in patient's urinary retention -c/w stool softeners and PRN Miralax #) CAD -c/w toprol 50XL and HCTZ 25 #) DM -ISS -BGM #)HTN BP well controlled -possibly restart lisinopril since patient had PEREZ at beginning of admission which has since resolved #) Scrotal Rash -ID consulted -changed ceftriaxone to augmentin 875mg BID -nystatin cream F/E/N not on fluids replete electrolytes if needed diabetic diet DVT PPX: lovenox 40 Problem List - Problems (1) PEREZ (acute kidney injury) Code(s): N17.9 - ACUTE KIDNEY FAILURE, UNSPECIFIED (2) CAD (coronary artery disease) Code(s): I25.10 - ATHSCL HEART DISEASE OF [place] CORONARY ARTERY W/O ANG PCTRS Qualifiers: Coronary Disease-Associated Artery/Lesion type: [place] artery [place] vs. transplanted heart: [place] heart Associated angina: with unspecified angina Qualified Code(s): I25.119 - Atherosclerotic heart disease of [place] coronary artery with unspecified angina pectoris (3) DM type 2 (diabetes mellitus, type 2) Code(s): E11.9 - TYPE 2 DIABETES MELLITUS WITHOUT COMPLICATIONS Qualifiers: Diabetes mellitus [place] insulin use: without oysterman use Diabetes mellitus complication status: with unspecified complications Qualified Code(s) : E11.8 - Type 2 diabetes mellitus with unspecified complications (4) HTN (hypertension) Code(s): I10 - ESSENTIAL (PRIMARY) HYPERTENSION Qualifiers: Hypertension type: essential hypertension Qualified Code(s): I10 - Essential (primary) hypertension (5) Urinary retention due to benign prostatic hyperplasia Code(s): N40.1 - BENIGN PROSTATIC HYPERPLASIA WITH LOWER URINARY TRACT SYMP; R33.8 - OTHER RETENTION OF URINE
[2018-06-17] MEDS ORDERED: POLYETHYLENE GLYCOL 3350 119 GM BTL PO PRN (13:33)
--- NOTE | 2018-06-17 13:34 | PN ---
Teaching Attending Note Name of Resident: Tanya Higginbotham ATTENDING PHYSICIAN STATEMENT I saw and evaluated the patient. I reviewed the resident's note and discussed the case with the resident. I agree with the resident's findings and plan as documented. SUBJECTIVE:asymptomatic. denies CP, SOB, fever, chills, N/V/C/D OBJECTIVE: Last Vital Signs Temp Pulse Resp BP Pulse Ox 97.4 F L 78 18 120/70 98 06/17/18 09:24 06/17/18 09:24 06/17/18 09:24 06/17/18 09:24 06/17/18 09:00 General NAD Genitalia, oblong 2cm ulcer medial to greater trochanter. no active drainage. good granulation tissue. discoloration along the penis. scrotum is enlarged and mildly tender. no blood noted ASSESSMENT AND PLAN: 78yo M with PMH DM presented to the ER iwth urinary retention 1. Urinary retention-due to enlarged prostate. may need TURP. good UOP in merino. had similiar issue in the past where merino was removed and then was retaining several days later. awaiting uology eval. merino placed. U/s done showing prostate 70cc. good UOP. awaiting urology evaluation. maintain merino for now. on flomax/proscar. 2. Constipation- resolved. cont stool softeners 3 Groin rash- unclear how he presented and if improving. however scrotum appears very tender. started on augmentin. ID on board. 4. PEREZ- now resolved 5. malnourished- encouraged po intake. dietary supplements 6. DM- hold oral agents. iss and BGM 7. DVT ppx- lovenox 8. d/c pending urology intervention.
--- NOTE | 2018-06-17 14:00 | PN ---
Progress Note, Physician - Current Medication List Current Medications: Active Medications Amoxicillin/Clavulanate Potassium (Augmentin - 875mg Tablet) 1 tab PO BID@0800, 1730 [facility] Last Admin: 06/17/18 09:25 Dose: 1 tab Atorvastatin Calcium (Lipitor -) 20 mg PO [facility] Last Admin: 06/16/18 21:50 Dose: 20 mg Docusate Sodium (Colace -) 300 mg PO HS [facility] Last Admin: 06/16/18 21:50 Dose: 300 mg Enoxaparin Sodium (Lovenox -) 40 mg SQ DAILY [facility] Last Admin: 06/17/18 09:25 Dose: 40 mg Finasteride (Proscar -) 5 mg PO DAILY [facility] Last Admin: 06/17/18 09:25 Dose: 5 mg Hydrochlorothiazide (Hctz -) 25 mg PO DAILY [facility] Last Admin: 06/17/18 09:25 Dose: 25 mg Insulin Aspart (Novolog Vial Sliding Scale -) 1 vial SQ [facility]; Protocol Last Admin: 06/17/18 12:14 Dose: 4 units Metoprolol Succinate (Toprol Xl -) 25 mg PO DAILY [facility] Last Admin: 06/17/18 09:25 Dose: 25 mg Nystatin (Nystop Powder -) 1 applic TP DAILY [facility] Last Admin: 06/17/18 09:26 Dose: 1 applic Polyethylene Glycol (Miralax (For Daily Use) -) 17 gm PO BID PRN PRN Reason: CONSTIPATION Tamsulosin HCl (Flomax -) 0.8 mg PO DAILY@0830 [facility] Last Admin: 06/17/18 09:25 Dose: 0.8 mg - Objective Vital Signs: Vital Signs Temperature 97.4 F L 06/17/18 09:24 Pulse Rate 78 06/17/18 09:24 Respiratory Rate 18 06/17/18 09:24 Blood Pressure 120/70 06/17/18 09:24 O2 Sat by Pulse Oximetry (%) 98 06/17/18 09:00 Labs: CBC, BMP 06/16/18 07:00 06/16/18 07:00
--- NOTE | 2018-06-17 18:12 | CON.GU ---
Consult - History of Present Illness History of Present Illness: 78 yo male with urinary retention despite flomax. CT with bilateral hydronephrosis from retention. No prior history. Currently with merino in place and would like it removed for voiding trial - Past Medical History [employer]: Yes: Alzheimer's - Alcohol/Substance Use Hx Alcohol Use: No - Smoking History Smoking history: Never smoked Home Medications - Allergies Allergies/Adverse Reactions: Allergies Allergy/AdvReac Type Severity Reaction Status Date / Time No Known Allergies Allergy Verified 06/13/18 12:52 - Home Medications Home Medications: Ambulatory Orders metFORMIN HCL [Metformin HCl] 500 mg PO TID 05/29/18 Atorvastatin Calcium [Lipitor] 20 mg PO DAILY 05/31/18 Glipizide [Glipizide ER] 10 mg PO BID 05/31/18 Lisinopril/Hydrochlorothiazide [Lisinopril-Hctz 20-25 mg Tab] 1 each PO DAILY Metoprolol Succinate [Toprol Xl] 25 mg PO DAILY 05/31/18 Amox-Tr/K Cl [Augmentin 875-125mg Tablet -] 1 tab PO BID@0800,1730 #14 tablet Amox-Tr/K Cl [Augmentin 875-125mg Tablet -] 1 tab PO BID@0800,1730 6 Days #12 tablet 06/17/18 Finasteride [Proscar -] 5 mg PO DAILY 30 Days #30 tablet 06/17/18 Nystatin Powder [Nystop Powder -] 1 applic TP DAILY 30 Days #1 applic 06/17/18 Tamsulosin HCl [Flomax -] 0.8 mg PO DAILY@0830 30 Days #30 cap.er.24h 06/17/18 Physical Exam- Vital Signs: Vital Signs Temperature 98.2 F 06/17/18 15:56 Pulse Rate 81 06/17/18 15:56 Respiratory Rate 18 06/17/18 15:56 Blood Pressure 111/63 06/17/18 15:56 O2 Sat by Pulse Oximetry (%) 98 06/17/18 09:00 Renal/: Yes: Mer[place] Present Labs: CBC, BMP 06/16/18 07:00 06/16/18 07:00 Imaging - Results Cat Scan: Report Reviewed Problem List - Problems (1) Urinary retention due to benign prostatic hyperplasia Assessment/Plan: cont flomax. voiding trial in am, would obtain psa. Pt plans to f/u with his own urologist as outpt Code(s): N40.1 - BENIGN PROSTATIC HYPERPLASIA WITH LOWER URINARY TRACT SYMP; R33.8 - OTHER RETENTION OF URINE
[2018-06-17] MEDS: DOCUSATE SODIUM 100 MG CAPSULE (FP) PO SCH (23:15)
[2018-06-17] MEDS: ATORVASTATIN CA 20 MG TABLET (FP) PO SCH (23:15)
[2018-06-18] MEDS: INSULIN SLIDING SCALE (NOVOLOG) 1 VIAL SQ SCH ×4 (06:15→21:43)
[2018-06-18] MEDS: AMOX TR/POT CLAV 875MG/125MG TABLETS (FP) PO SCH ×2 (08:32→18:01)
[2018-06-18] MEDS: TAMSULOSIN HCL 0.4 MG CAP PO SCH (09:27)
[2018-06-18] MEDS: metoPROLOL SUCCINATE 25 MG TAB.SR.24H (FP) PO SCH (09:27)
[2018-06-18] MEDS: ENOXAPARIN NA (PORCINE) 40 MG/0.4 ML DISP.SYRIN SQ SCH (09:27)
[2018-06-18] MEDS: NYSTATIN POWDER 100,000 UNITS/GM - 15 GM TOPICAL POWDER TP SCH (09:27)
[2018-06-18] MEDS: HYDROCHLOROTHIAZIDE 25 MG TABLET (FP) PO SCH (09:27)
[2018-06-18] MEDS: FINASTERIDE 5 MG TABLET (FP) PO SCH (09:27)
[2018-06-18] MEDS ORDERED: INSULIN (NOVOLOG) ASPART 100 UNITS/ML 10ML VIAL ONE ×2 (12:01→18:30)
--- NOTE | 2018-06-18 12:20 | PN ---
Teaching Attending Note Name of Resident: Tanya Higginbotham ATTENDING PHYSICIAN STATEMENT I saw and evaluated the patient. I reviewed the resident's note and discussed the case with the resident. I agree with the resident's findings and plan as documented. SUBJECTIVE:fustrated that merino catheter had to re-placed but currently no pain. denies CP, SOB, fever, chills, N/V/C/D OBJECTIVE: Last Vital Signs Temp Pulse Resp BP Pulse Ox 98.3 F 80 18 126/76 97 06/18/18 06:00 06/18/18 09:00 06/18/18 09:00 06/18/18 09:00 06/18/18 09:00 General NAD ASSESSMENT AND PLAN: 78yo M with PMH DM presented to the ER iwth urinary retention 1. Urinary retention-due to enlarged prostate. may need TURP. Merino removed yesterday with minimal UOP. bladder scan done this AM showing large volume and merino now replaced. pt will need to f/u [facility] urology as outpatient for further management. will likely require TURP.on flomax/proscar. 2. Constipation- resolved. cont stool softeners. RN instruction on how to maintain merino 3 Groin rash- unclear how he presented and if improving. however scrotum appears very tender. on augmentin per ID to complete a week. cont nystatin powder. ID on board. 4. PEREZ- now resolved 5. malnourished- encouraged po intake. dietary supplements 6. DM-a1c 8.9. pt states his last A1c was 7. that he has not been taking his medications for the past month as he has been in and out of the hospital. also his managed services consultant started him on a new medication which he has been giving him samples, he does not recall the strength of the medication he is being given. informed him his A1c is worse here but he should continue medications as instructed as he states it was controlled. requested script for new medication that his managed services consultant was giving him. informed him I would be unable to do that unless he knows clearly what he was being prescribed. Instructed him to call his doctor today to verify what he wants him on and have him write the prescription for it. he will need close monitoring of sugars and repeat A1c in 3 months 7. DVT ppx- lovenox 8. medically stable for discharge home. pt states he wants to stay another day as his sister can not pick him up today. informed him that there is no medical indication for him to stay hospitalized and that we could arrange transportation for him. Pt very upset and only wants his sister to drive him. Informed him that he was notified that his discharge was for yesterday however he refused to leave until urology evaluated him which he was. Notified CM who will speak with the patient. pt will be discharged
--- NOTE | 2018-06-18 13:43 | PN ---
Progress Note, Physician History of Present Illness: patient stable failed voiding trial foleys had to be reinserted - Current Medication List Current Medications: Active Medications Amoxicillin/Clavulanate Potassium (Augmentin - 875mg Tablet) 1 tab PO BID@0800, 1730 [facility] Last Admin: 06/18/18 08:32 Dose: 1 tab Atorvastatin Calcium (Lipitor -) 20 mg PO [facility] Last Admin: 06/17/18 23:15 Dose: 20 mg Docusate Sodium (Colace -) 300 mg PO [facility] Last Admin: 06/17/18 23:15 Dose: 300 mg Enoxaparin Sodium (Lovenox -) 40 mg SQ DAILY [facility] Last Admin: 06/18/18 09:27 Dose: 40 mg Finasteride (Proscar -) 5 mg PO DAILY [facility] Last Admin: 06/18/18 09:27 Dose: 5 mg Glipizide (Glucotrol -) 10 mg PO BID@0700,1630 [facility] Hydrochlorothiazide (Hctz -) 25 mg PO DAILY [facility] Last Admin: 06/18/18 09:27 Dose: 25 mg Insulin Aspart (Novolog Vial Sliding Scale -) 1 vial SQ [facility]; Protocol Last Admin: 06/18/18 12:00 Dose: 4 units Metoprolol Succinate (Toprol Xl -) 25 mg PO DAILY [facility] Last Admin: 06/18/18 09:27 Dose: 25 mg Nystatin (Nystop Powder -) 1 applic TP DAILY [facility] Last Admin: 06/18/18 09:27 Dose: 1 applic Polyethylene Glycol (Miralax (For Daily Use) -) 17 gm PO BID PRN PRN Reason: CONSTIPATION Tamsulosin HCl (Flomax -) 0.8 mg PO DAILY@0830 [facility] Last Admin: 06/18/18 09:27 Dose: 0.8 mg - Objective Vital Signs: Vital Signs Temperature 98.3 F 06/18/18 06:00 Pulse Rate 80 06/18/18 09:00 Respiratory Rate 18 06/18/18 09:00 Blood Pressure 126/76 06/18/18 09:00 O2 Sat by Pulse Oximetry (%) 97 06/18/18 09:00 Constitutional: Yes: No Distress, Calm Cardiovascular: Yes: Regular Rate and Rhythm Respiratory: Yes: Regular, CTA Bilaterally Gastrointestinal: Yes: Normal Bowel Sounds, Soft Genitourinary: Yes: Merino Present Musculoskeletal: Yes: WNL Extremities: Yes: WNL Neurological: Yes: Alert, Oriented Psychiatric: Yes: Alert, Oriented Labs: CBC, BMP 06/16/18 07:00 06/16/18 07:00 Assessment/Plan roblem List - Problems (1) PEREZ (acute kidney injury) Code(s): N17.9 - ACUTE KIDNEY FAILURE, UNSPECIFIED (2) CAD (coronary artery disease) Code(s): I25.10 - ATHSCL HEART DISEASE OF [place] CORONARY ARTERY W/O ANG PCTRS Qualifiers: Coronary Disease-Associated Artery/Lesion type: [place] artery [place] vs. transplanted heart: [place] heart Associated angina: with unspecified angina Qualified Code(s): I25.119 - Atherosclerotic heart disease of [place] coronary artery with unspecified angina pectoris (3) DM type 2 (diabetes mellitus, type 2) Code(s): E11.9 - TYPE 2 DIABETES MELLITUS WITHOUT COMPLICATIONS Qualifiers: Diabetes mellitus intermediate card tender insulin use: without intermediate card tender use Diabetes mellitus complication status: with unspecified complications Qualified Code(s) : E11.8 - Type 2 diabetes mellitus with unspecified complications (4) HTN (hypertension) Code(s): I10 - ESSENTIAL (PRIMARY) HYPERTENSION Qualifiers: Hypertension type: essential hypertension Qualified Code(s): I10 - Essential (primary) hypertension (5) Urinary retention due to benign prostatic hyperplasia Code(s): N40.1 - BENIGN PROSTATIC HYPERPLASIA WITH LOWER URINARY TRACT SYMP; R33.8 - OTHER RETENTION OF URINE Assessment/Plan Urinary retention s/p merino insertion DM s/p PNA Leukocytosis resolved Scrotal erythema - possible cellulitis groin rash plan continue augmentin rest as per urology
--- NOTE | 2018-06-18 15:55 | DS ---
Physical Exam: SUBJECTIVE: Patient seen and examined at bedside. he was seen by the urologist last night who removed his merino catheter, and a trial of void took place which was unsuccessful as the patient still could not urinate. A bladder scan was done showing a lot of retained urine, the merino catheter was then placed back on the patient. he was very angry and appealing his discharge. he denies any CP/ SOB/N/V fevers or chills. OBJECTIVE: Vital Signs Period Temp Pulse Resp BP Sys/Shrestha Pulse Ox Last 24 Hr 97.4 F-98.4 F 80-86 18-20 109-126/60-76 97-98 PHYSICAL EXAM GENERAL: The patient is awake, alert, and fully oriented, in no acute distress. EYES: no scleral icterus NECK: no JVD appreciated LUNGS: CTA B/L; no rales rhonchi or wheezing ABDOMEN: Soft, nontender, nondistended, normoactive bowel sounds, no guarding, no rebound, no hepatosplenomegaly, no masses. EXTREMITIES: 2+ pulses, warm, well-perfused, no edema. PSYCH: Normal mood, normal affect. SKIN: Warm, dry, normal turgor, no rashes or lesions noted. LABS Laboratory Results - last 24 hr 06/17/18 06/17/18 06/18/18 16:52 22:22 06:14 POC Glucometer 270 375 203 06/18/18 11:55 POC Glucometer 249 Imaging: CT ab/pelvis Impression: Probable small left hydrocele. No scrotal/perineal air/gas accumulation is seen. There is no discrete fluid collection within the perineum. Marked prostate enlargement is noted. A Merino catheter is seen in place. The current urinary bladder volume is approximately 300 mL - ? possibly clamped versus occluded catheter. There is mild bilateral hydronephrosis which may be secondary to current versus prior urinary bladder distention. Correlation with follow-up sonography or CT is suggested in approximately 2-3 days to document resolution of this finding. Cholelithiasis. At least moderate atherosclerotic coronary calcifications. At least moderate colonic fecal retention. Microbiology 06/13/18 14:35 Blood - Peripheral Venous Blood Culture - Final NO GROWTH AFTER 5 DAYS INCUBATION 06/13/18 14:35 Blood - Peripheral Venous Blood Culture - Final NO GROWTH AFTER 5 DAYS INCUBATION 06/13/18 13:15 Urine - Urine Merino Urine Culture - Final NO GROWTH OBTAINED HOSPITAL COURSE: Date of Admission:06/13/18 78 /o male with PMH of DM, HTN, CAD, BPH presented to the ED with complaints of urinary retention and constipation, in addition, patient an PEREZ on admission 2/ 2 obstruction with his presenting Cr being 1.7. A CT ab/pelvis were done which showed B/L hydronephrosis, and volume retention. A merino was placed and the patients obstruction and PEREZ resolved. On admission patient also had a leukocytosis, the source is still unclear but patient had a penile rash that was erythematous which could have been the source so ID was consulted and patient was started on IV ceftriaxone then later on in his hospital course he was switched to PO augmentin. A u/a was done which was negative. Patient was given an enema in addition to stool softeners and PRN miralax and his constipation resolved as well. A few days into his stay a urologist came to see the patient, removed the foleyy, and a trial of void took place. The patient failed the void trial and the merino had to be put back on and patient was sent home and told to follow up in a week with the urologist. He was sent home on 5 more days of augmentin, sent with finasteride 5mg daily, flomax 0.8 and nystatin powder for his rash. Date of Discharge: 06/18/18 Minutes to complete discharge: 39 Discharge Summary Reason For Visit: SEPSIS Current Active Problems PEREZ (acute kidney injury) (Acute) CAD (coronary artery disease) (Acute) DM type 2 (diabetes mellitus, type 2) (Acute) HTN (hypertension) (Acute) Sepsis (Acute) Urinary retention due to benign prostatic hyperplasia (Acute) Condition: Stable - Instructions Diet, Activity, Other Instructions: You came to the hospital with complaints of trouble urinating in addition to trouble moving you bowels. We placed a merino catheter in you and this blockage seemed to have resolved. Your prostate is very large which is likely causing this problem. You were started on medications to improve this but you will likely require a procedure to make it easier to urinate. You are being discharged with a merino catheter. Maintain this as instructed until you follow up with urology for further instruction. You can follow up with your own urologist or the one you saw here. Information on the one you saw here has been provided. For your constipation we gave you an enema, in addition, we gave you stool softeners which seemed to have improve your symptoms. You were also noted ot have a rash on your groin. You were started on an antibiotic and cream for this. Take as instructed, until completed. Your sugars were not well controlled here (A1c 8.9) You informed us that your last one was much better with this newer medication that your panel flow machine operator was giving you free samples. PLease call your panel flow machine operator today to verify what you were taking and to write a prescription so that you can continue it. It is very important that you keep your sugars well controlled. PLease take medications as instructed and have your diabetic number (A1c ) repeated in 3 months. Please resume all of your home medications in addition please take: Finasteride 5mg daily Augmentin 875 two times per day apply nystatin cream daily Referrals: -we advise you to follow up with your primary care physician in one week *if you begin to experience any fevers, chills, nausea, vomiting, chest pain, shortness of breath please return to the emergency room as soon as possible Referrals: Jack Kay [Primary Care Provider] - Rickie Pat MD [Staff Physician] - 1 Week Disposition: HOME - Home Medications Comprehensive Discharge Medication List: Ambulatory Orders metFORMIN HCL [Metformin HCl] 500 mg PO TID 05/29/18 Atorvastatin Calcium [Lipitor] 20 mg PO DAILY 05/31/18 Glipizide [Glipizide ER] 10 mg PO BID 05/31/18 Lisinopril/Hydrochlorothiazide [Lisinopril-Hctz 20-25 mg Tab] 1 each PO DAILY Metoprolol Succinate [Toprol Xl] 25 mg PO DAILY 05/31/18 Amox-Tr/K Cl [Augmentin 875-125mg Tablet -] 1 tab PO BID@0800,1730 6 Days #12 tablet 06/17/18 Finasteride [Proscar -] 5 mg PO DAILY 30 Days #30 tablet 06/17/18 Nystatin Powder [Nystop Powder -] 1 applic TP DAILY 30 Days #1 applic 06/17/18 Tamsulosin HCl [Flomax -] 0.8 mg PO DAILY@0830 30 Days #30 cap.er.24h 10/29/18 Problem List - Problems (1) PEREZ (acute kidney injury) Code(s): N17.9 - ACUTE KIDNEY FAILURE, UNSPECIFIED (2) CAD (coronary artery disease) Code(s): I25.10 - ATHSCL HEART DISEASE OF [place] CORONARY ARTERY W/O ANG PCTRS Qualifiers: Coronary Disease-Associated Artery/Lesion type: [place] artery [place] vs. transplanted heart: [place] heart Associated angina: with unspecified angina Qualified Code(s): I25.119 - Atherosclerotic heart disease of [place] coronary artery with unspecified angina pectoris (3) DM type 2 (diabetes mellitus, type 2) Code(s): E11.9 - TYPE 2 DIABETES MELLITUS WITHOUT COMPLICATIONS Qualifiers: Diabetes mellitus intermediate insulin use: without lobsterman use Diabetes mellitus complication status: with unspecified complications Qualified Code(s) : E11.8 - Type 2 diabetes mellitus with unspecified complications (4) HTN (hypertension) Code(s): I10 - ESSENTIAL (PRIMARY) HYPERTENSION Qualifiers: Hypertension type: essential hypertension Qualified Code(s): I10 - Essential (primary) hypertension (5) Urinary retention due to benign prostatic hyperplasia Code(s): N40.1 - BENIGN PROSTATIC HYPERPLASIA WITH LOWER URINARY TRACT SYMP; R33.8 - OTHER RETENTION OF URINE This patient is new to me today: No Emergency Visit: Yes ED Registration Date: 06/13/18 Care time: The patient presented to the Emergency Department on the above date and was hospitalized for further evaluation of their emergent condition. Critical Care patient: No - Discharge Referral Referred to [facility] Med [facility].C.: No
[2018-06-18] MEDS ORDERED: glipiZIDE 5 MG TABLET (FP) ONE (17:49)
[2018-06-18] MEDS: glipiZIDE 10 MG TABLET (FP) PO SCH (18:00)
[2018-06-18] MEDS ORDERED: PT OWN MED DRAWER 7, Y5N ONE (18:31)
[2018-06-18] MEDS: DOCUSATE SODIUM 100 MG CAPSULE (FP) PO SCH (21:43)
[2018-06-18] MEDS: ATORVASTATIN CA 20 MG TABLET (FP) PO SCH (21:43)
[2018-06-19] MEDS ORDERED: PT OWN MED DRAWER 7, Y5N ONE ×2 (06:24→12:58)
[2018-06-19] MEDS: INSULIN SLIDING SCALE (NOVOLOG) 1 VIAL SQ SCH ×2 (06:49→13:00)
[2018-06-19] MEDS: glipiZIDE 10 MG TABLET (FP) PO SCH (06:49)
[2018-06-19] MEDS ORDERED: glipiZIDE 5 MG TABLET (FP) ONE (08:28)
[2018-06-19] MEDS: AMOX TR/POT CLAV 875MG/125MG TABLETS (FP) PO SCH (08:29)
[2018-06-19] MEDS: TAMSULOSIN HCL 0.4 MG CAP PO SCH (08:29)
[2018-06-19] MEDS: HYDROCHLOROTHIAZIDE 25 MG TABLET (FP) PO SCH (09:38)
[2018-06-19] MEDS: metoPROLOL SUCCINATE 25 MG TAB.SR.24H (FP) PO SCH (09:39)
[2018-06-19] MEDS: FINASTERIDE 5 MG TABLET (FP) PO SCH (09:39)
[2018-06-19] MEDS: ENOXAPARIN NA (PORCINE) 40 MG/0.4 ML DISP.SYRIN SQ SCH (09:39)
--- NOTE | 2018-06-19 12:21 | PN ---
Progress Note, Physician History of Present Illness: patient stable stable no new issues - Current Medication List Current Medications: Active Medications Amoxicillin/Clavulanate Potassium (Augmentin - 875mg Tablet) 1 tab PO BID@0800, 1730 [facility] Last Admin: 06/19/18 08:29 Dose: 1 tab Atorvastatin Calcium (Lipitor -) 20 mg PO [facility] Last Admin: 06/18/18 21:43 Dose: 20 mg Docusate Sodium (Colace -) 300 mg PO [facility] Last Admin: 06/18/18 21:43 Dose: 300 mg Enoxaparin Sodium (Lovenox -) 40 mg SQ DAILY [facility] Last Admin: 06/19/18 09:39 Dose: 40 mg Finasteride (Proscar -) 5 mg PO DAILY [facility] Last Admin: 06/19/18 09:39 Dose: 5 mg Glipizide (Glucotrol -) 10 mg PO BID@0700,1630 [facility] Last Admin: 06/19/18 06:49 Dose: 10 mg Hydrochlorothiazide (Hctz -) 25 mg PO DAILY [facility] Last Admin: 06/19/18 09:38 Dose: 25 mg Insulin Aspart (Novolog Vial Sliding Scale -) 1 vial SQ [facility]; Protocol Last Admin: 06/19/18 06:49 Dose: 2 units Metoprolol Succinate (Toprol Xl -) 25 mg PO DAILY [facility] Last Admin: 06/19/18 09:39 Dose: 25 mg Nystatin (Nystop Powder -) 1 applic TP DAILY [facility] Last Admin: 06/18/18 09:27 Dose: 1 applic Polyethylene Glycol (Miralax (For Daily Use) -) 17 gm PO BID PRN PRN Reason: CONSTIPATION Tamsulosin HCl (Flomax -) 0.8 mg PO DAILY@0830 [facility] Last Admin: 06/19/18 08:29 Dose: 0.8 mg - Objective Vital Signs: Vital Signs Temperature 98.3 F 06/19/18 10:00 Pulse Rate 76 06/19/18 10:00 Respiratory Rate 18 06/19/18 10:00 Blood Pressure 115/69 06/19/18 10:00 O2 Sat by Pulse Oximetry (%) 97 06/19/18 09:00 Constitutional: Yes: No Distress, Calm Cardiovascular: Yes: Regular Rate and Rhythm Respiratory: Yes: Regular, CTA Bilaterally Gastrointestinal: Yes: Normal Bowel Sounds, Soft Genitourinary: Yes: Merino Present Musculoskeletal: Yes: WNL Extremities: Yes: WNL Neurological: Yes: Alert, Oriented Psychiatric: Yes: Alert, Oriented Labs: CBC, BMP 06/16/18 07:00 06/16/18 07:00 Assessment/Plan roblem List - Problems (1) PEREZ (acute kidney injury) Code(s): N17.9 - ACUTE KIDNEY FAILURE, UNSPECIFIED (2) CAD (coronary artery disease) Code(s): I25.10 - ATHSCL HEART DISEASE OF [place] CORONARY ARTERY W/O ANG PCTRS Qualifiers: Coronary Disease-Associated Artery/Lesion type: [place] artery [place] vs. transplanted heart: [place] heart Associated angina: with unspecified angina Qualified Code(s): I25.119 - Atherosclerotic heart disease of [place] coronary artery with unspecified angina pectoris (3) DM type 2 (diabetes mellitus, type 2) Code(s): E11.9 - TYPE 2 DIABETES MELLITUS WITHOUT COMPLICATIONS Qualifiers: Diabetes mellitus mcfp insulin use: without predatory animal exterminator use Diabetes mellitus complication status: with unspecified complications Qualified Code(s) : E11.8 - Type 2 diabetes mellitus with unspecified complications (4) HTN (hypertension) Code(s): I10 - ESSENTIAL (PRIMARY) HYPERTENSION Qualifiers: Hypertension type: essential hypertension Qualified Code(s): I10 - Essential (primary) hypertension (5) Urinary retention due to benign prostatic hyperplasia Code(s): N40.1 - BENIGN PROSTATIC HYPERPLASIA WITH LOWER URINARY TRACT SYMP; R33.8 - OTHER RETENTION OF URINE Assessment/Plan Urinary retention s/p merino insertion DM s/p PNA Leukocytosis resolved Scrotal erythema - possible cellulitis groin rash plan continue augmentin rest as per urology augmentin for couple of days follow with urology
[2018-06-19] MEDS: NYSTATIN POWDER 100,000 UNITS/GM - 15 GM TOPICAL POWDER TP SCH (13:00)
[2018-06-19 14:46] VITALS: BP 106/60; PULSE 90; TEMP 98.5
== END 2018-06-19 15:28 | disposition home or self-care (01) | DRG 683 ==
LOC: JER 12:37 → JERBED 16:47 → J5S 21:14
PROVIDERS: ADMIT Internal Medicine; ATTEND Internal Medicine
DX: N17.9 Acute kidney failure, unspecified (principal); R64 Cachexia; E46 Unspecified protein-calorie malnutrition; I25.10 Atherosclerotic heart disease of native coronary artery without angina pectoris; N13.30 Unspecified hydronephrosis; N40.1 Benign prostatic hyperplasia with lower urinary tract symptoms; R33.8 Other retention of urine; E78.5 Hyperlipidemia, unspecified; K59.00 Constipation, unspecified; E11.65 Type 2 diabetes mellitus with hyperglycemia; K80.20 Calculus of gallbladder without cholecystitis without obstruction; L22 Diaper dermatitis; D72.829 Elevated white blood cell count, unspecified; G30.9 Alzheimer's disease, unspecified; F02.80 Dementia in other diseases classified elsewhere, unspecified severity, without behavioral disturbance, psychotic disturbance, mood disturbance, and anxiety; Z79.84 Long term (current) use of oral hypoglycemic drugs; L89.152 Pressure ulcer of sacral region, stage 2; N49.2 Inflammatory disorders of scrotum; N43.3 Hydrocele, unspecified
CPT/HCPCS: 36415; 71045-TC-FY; 74176-TC; 76856-TC; 80048; 80053; 81003; 81015; 82550; 82962; 83036; 83605; 83735; 84100; 84153; 85025; 85027; 87040; 87086; 93005; 93010; 97116-GP; 97161-GP; 99285-25; J7030